=== PATIENT | female | born 1995 | race Caucasian/White ===

== ENCOUNTER 2023-03-25 | Outpatient (OUT) | payer OTHER, SELFPAY ==
[2023-03-25 01:33] LABS: Bilirubin Urine NEGATIVE (NEGATIVE); Blood Urine NEGATIVE (NEGATIVE); Clarity Urine CLEAR (CLEAR); Color Urine LT. YELLOW (YELLOW); Glucose Urine UA NEGATIVE (NEGATIVE); Ketones Urine NEGATIVE (NEGATIVE); Leukocyte Esterase Urine NEGATIVE (NEGATIVE); Nitrite Urine NEGATIVE (NEGATIVE); Protein Urine NEGATIVE (NEG/TRACE); Urobilinogen Urine 0.2 EU/dL (0.2-1.0)
[2023-03-25 01:36] LABS: Urine Microscopic Indicated NO
[2023-03-25 01:40] LABS: Amnisure NEGATIVE (NEGATIVE)
[2023-03-25 02:00] VITALS: PULSE 70; RESP 16; TEMP 35.8
[2023-03-25 02:23] VITALS: BP 117/62; PULSE 70; RESP 16; TEMP 35.8
== END 2023-03-25 02:30 | disposition home or self-care (01) ==
LOC: FBC 08:29 → FBCO 08:43 → FBC 09:59
PROVIDERS: PCP Nurse Practitioner Family; Visit Provider Obstetrics & Gynecology
DX: O26.899 Other specified pregnancy related conditions, unspecified trimester (principal)
CPT/HCPCS: 59025; 81003; 84112; G0378; G0379

== ENCOUNTER 2023-04-06 14:36 | Outpatient (REF) | payer OTHER, SELFPAY | END 2023-04-06 14:37 | disposition home or self-care (01) | LOC: LAB 14:36 | PROVIDERS: PCP Nurse Practitioner Family; Visit Provider Physician Assistant | DX: Z34.93 Encounter for supervision of normal pregnancy, unspecified, third trimester (principal) | CPT/HCPCS: 87081 ==

== ENCOUNTER 2023-04-19 16:03 | Emergency (ER) | payer OTHER, SELFPAY ==
[2023-04-19 16:09] VITALS: BP 121/77; PULSE 70; RESP 20; TEMP 36.8; O2SAT 99; BMI 30.6
[2023-04-19 16:32] LABS: Internal Control Within Normal Limits; Strep A Antigen Screen Negative
--- NOTE | 2023-04-19 16:56 | ECG_ITS ---
[facility] Test Date: 2023-04-19 Pat Name: ANASTACIA KU Department: Room: - Gender: Female [employer]: : 1995 Requested By: JAYSHREE LEIJA Order Number: [id number] Reading MD: DERICK WILKINS Measurements Intervals [place] Rate: 63 P: 60 ME: 150 QRS: 54 QRSD: 80 T: 26 QT: 394 QTc: 402 Interpretive Statements 1100 Sinus rhythm 9110 normal ECG No previous ECG available for comparison Electronically Signed On 04-20-2023 6:42:01 EDT by DERICK WILKINS
--- NOTE | 2023-04-19 16:59 | ED.GENADUL1 ---
Documented by User: Jackie Hagan 04/19/23 19:38 HPI - General Adult General Chief complaint: Shortness of Breath/Dyspnea Stated complaint: Difficulty breathing, High BP, 38-wks Time Seen by Provider: 04/19/23 16:56 Source: patient Mode of arrival: walk-in Limitations: no limitations History of Present Illness HPI narrative: 28 year old female presents to the ED for SOB, sore throat. Onset was yesterday. She feels as if she cannot take a deep breath. Denies fever, chills, congestion, cough. She is 38 weeks ; . Denies abd pain, vaginal discharge/bleeding. She is concerned she is dehydrated. Denies N/V/D, urinary sx. Denies pain. States her BP was 150/80 at work this morning. Reports feeling normal baby movement. Related Data Home Medications Medication Instructions Recorded Confirmed buprenorphine 8 mg-naloxone 2 mg 0.5 tab sublingual DAILY 03/25/23 03/25/23 sublingual tablet Previous Rx's Medication Instructions Recorded cephalexin 500 mg capsule 500 mg PO BID 5 days #10 caps 04/19/23 Allergies Allergy/AdvReac Type Severity Reaction Status Date / Time pcn Allergy Mild Rash Uncoded 03/25/23 03:51 Review of Systems ROS Constitutional Denies: fever or chills Eyes Denies: change in vision Ears, nose, mouth, and throat Reports: throat pain; Denies: neck pain Cardiovascular Denies: chest pain, palpitations, swelling of feet/ankles or lightheadedness Respiratory Reports: shortness of breath; Denies: cough, wheezing or stridor Gastrointestinal Denies: abdominal pain, nausea, vomiting or diarrhea Genitourinary Denies: painful urination Musculoskeletal Denies: back pain or neck pain Integumentary/Breast Denies: rash Neurological Denies: headache, numbness in extremities or weakness in extremities Allergic/Immunologic Denies: hives, throat swelling, tongue swelling or facial swelling PFSH PFS Surgical History (Updated 03/25/23 @ 03:42 by Amaya Cox) Social History Smoking status: Former smoker Exam Constitutional Vital Signs, click to edit/add: Last Vital Signs Temp 98.3 F 04/19/23 16:09 Pulse 70 04/19/23 16:09 Resp 20 04/19/23 16:09 BP 121/77 H 04/19/23 16:09 Pulse Ox 99 04/19/23 16:09 O2 Del Method Room Air 04/19/23 16:09 Common normals: no apparent distress and oriented x3 Exam limitations: no altered mental status General appearance: cooperative; not in distress HENNV Common normals: normocephalic Face and sinus: normal facial exam and face symmetric Nose: external nose normal External ear: external ears normal Mouth: oral and palatal mucosa normal, lip normal and tongue normal Throat: posterior oropharynx normal and uvula midline; no uvular edema Eye Common normals: PERRL and EOMs intact bilaterally Neck & C-Spine Common normals: supple Chest Chest: symmetrical chest wall rise Respiratory Common normals: normal respiratory effort Effort & inspection: able to speak in complete sentences Auscultation: clear to auscultation bilaterally Cardio Common normals: regular rate and regular rhythm Extremity Common normals: full ROM and normal capillary refill Neuro Common normals: oriented x3 Sensorium/orientation: awake and alert Speech: speech normal Course Vital Signs Vital signs: Vital Signs Temperature 98.3 F 04/19/23 16:09 Pulse Rate 70 04/19/23 16:09 Respiratory Rate 20 04/19/23 16:09 Blood Pressure 121/77 H 04/19/23 16:09 Pulse Oximetry 99 04/19/23 16:09 Oxygen Delivery Method Room Air 04/19/23 16:09 Temperature 98.3 F 04/19/23 16:09 Pulse Rate 70 04/19/23 16:09 Respiratory Rate 20 04/19/23 16:09 Blood Pressure 121/77 H 04/19/23 16:09 Pulse Oximetry 99 04/19/23 16:09 Oxygen Delivery Method Room Air 04/19/23 16:09 Medical Decision Making MDM Narrative Medical decision making narrative: CBC and CMP were unremarkable. Urinalysis showed signs of infection; culture is pending. Strep screen was ordered by the RN per protocol and was negative. A prescription was provided for Keflex. The patient is likely having issues with acid reflux which is causing her throat discomfort. Follow up with TELE[employer] P[employer] OPERATOR for a recheck, further evaluation and treatment. Return precautions were discussed. Lab Data Lab results reviewed: Yes I reviewed the patient's lab results Labs: Lab Results 07/19/23 07/19/23 07/19/23 Range/Units 16:18 17:11 18:10 WBC 13.2 H (4.0-11.0) 10^3/uL RBC 3.57 L (4.20-5.40) 10^6/uL Hgb 12.0 (12.0-16.0) g/dL Hct 33.7 L (36.0-48.0) % MCV 94.4 (81.0-99.0) fL MCH 33.6 (26.7-34.0) pg MCHC 35.6 H (29.9-35.2) g/dL RDW 13.2 (11.0-15.0) % Plt Count 221 (150-450) 10^3/uL MPV 9.7 (9.5-13.5) fL Neut % (Auto) 79.3 H (43.0-75.0) % Lymph % (Auto) 13.2 L (20.5-60.0) % [place] % (Auto) 5.9 (1.7-12.0) % Eos % (Auto) 1.0 (0.9-7.0) % Baso % (Auto) 0.2 (0.2-2.0) % Neut # (Auto) 10.4 H (1.4-6.5) 10^3/uL Lymph # (Auto) 1.7 (1.2-3.8) 10^3/uL [place] # (Auto) 0.8 (0.3-0.8) 10^3/uL Eos # (Auto) 0.1 (0.0-0.7) 10^3/uL Baso # (Auto) 0.0 (0.0-0.1) 10^3/uL Abs Immat Gran (auto) 0.05 H (0.00-0.03) 10^3/uL Imm/Tot Granulo (auto) 0.4 (0.0-0.5) % Sodium 137 (136-145) mmol/L Potassium 3.7 (3.5-5.1) mmol/L Chloride 105 (98-107) mmol/L Carbon Dioxide 22.4 (21.0-32.0) mmol/L Anion Gap 13.3 BUN 7.0 (7.0-18.0) mg/dL Creatinine 0.52 L (0.55-1.02) mg/dL Est GFR ( Amer) >60 (>=60) Est GFR (Non-Af Amer) >60 (>=60) BUN/Creatinine Ratio 13.5 Glucose 96 (74-106) mg/dL Calcium 8.6 (8.5-10.1) mg/dL Total Bilirubin 0.1 L (0.2-1.0) mg/dL AST 15 (15-37) U/L ALT 16 (14-59) U/L Alkaline Phosphatase 119 H (46-116) U/L Total Protein 6.5 (6.4-8.2) g/dL Albumin 2.8 L (3.4-5.0) g/dL Globulin 3.7 g/dL Albumin/Globulin Ratio 0.8 Urine Color Lt. yellow (YELLOW) Urine Clarity Clear (CLEAR) Urine pH 7.0 (5.0-9.0) Ur Specific [place] 1.015 (1.005-1.025) Urine Protein Negative (NEG/TRACE) mg/dL Urine Glucose (UA) Negative (NEGATIVE) mg/dL Urine Ketones Negative (NEGATIVE) mg/dL Urine Occult Blood Negative (NEGATIVE) Urine Nitrite Negative (NEGATIVE) Urine Bilirubin Negative (NEGATIVE) Urine Urobilinogen 0.2 (0.2-1.0) EU/dL Ur Leukocyte Esterase Large A (NEGATIVE) Urine RBC 2-5 A (0-2) #/HPF Urine WBC 10-20 A (NONE SEEN) #/HPF Ur Squamous Epith Cells Few A (NONE/RARE) #/LPF Urine Crystals Seen A (None Seen) #/HPF Amorphous Sediment Few Urine Bacteria Moderate A (NONE SEEN) #/HPF Urine Casts None seen (NONE SEEN) #/LPF Urine Mucus None seen (NONE SEEN) Ur Culture Indicated? Yes Streptococcus Screen Negative ECG Data Attestation: ?I have reviewed the pertinent ECG results. (EKG was reviewed by the attending physician. It showed sinus rhythm at a rate of 63. No acute ST segment changes. MD interval 150 ms. QTc 402 ms. ) Interpretation: Measurements Intervals? [place]? Rate: ? 63 ? P:? 60 MD: ? 150? QRS:? 54 QRSD: ? 80 ? T:? 26 QT: ? 394? QTc:? 402? Interpretive Statements 1100 Sinus rhythm 9110 ? normal ECG? No previous ECG available for comparison Discharge Plan Discharge Chief Complaint: Shortness of Breath/Dyspnea Clinical Impression: UTI (urinary tract infection), Dyspnea Patient Disposition: Home, Self-Care Time of Disposition Decision: 18:36 Condition: Good Mode of Transportation: Private Vehicle Prescriptions / Home Meds: New cephalexin 500 mg capsule 500 mg PO BID 5 Days Qty: 10 0RF No Action buprenorphine-naloxone 8-2 mg tablet, sublingual 0.5 tab SUBLINGUAL DAILY Instructions: Indigestion (ED), Dyspnea (ED), Urinary Tract Infection in (ED) Stand Alone Forms: Portal Instructions Referrals: JAYSHREE LEIJA [Primary Care Provider] - 1 week Discharge Date/Time: 04/19/23 19:07 Documented by User: Antonio Madrid MD 04/19/23 19:51 HPI - General Adult General Chief complaint: Shortness of Breath/Dyspnea Stated complaint: Difficulty breathing, High BP, 38-wks Time Seen by Provider: 04/19/23 16:56 Related Data Home Medications Medication Instructions Recorded Confirmed buprenorphine 8 mg-naloxone 2 mg 0.5 tab sublingual DAILY 03/25/23 03/25/23 sublingual tablet Previous Rx's Medication Instructions Recorded cephalexin 500 mg capsule 500 mg PO BID 5 days #10 caps 04/19/23 Allergies Allergy/AdvReac Type Severity Reaction Status Date / Time pcn Allergy Mild Rash Uncoded 03/25/23 03:51 PFSH [facility] Surgical History (Updated 03/25/23 @ 03:42 by Amaya Cox) Social History Smoking status: Former smoker Exam Constitutional Vital Signs, click to edit/add: Last Vital Signs Temp 98.3 F 04/19/23 16:09 Pulse 70 04/19/23 16:09 Resp 20 04/19/23 16:09 BP 121/77 H 04/19/23 16:09 Pulse Ox 99 04/19/23 16:09 O2 Del Method Room Air 04/19/23 16:09 Course Vital Signs Vital signs: Vital Signs Temperature 98.3 F 04/19/23 16:09 Pulse Rate 70 04/19/23 16:09 Respiratory Rate 20 04/19/23 16:09 Blood Pressure 121/77 H 04/19/23 16:09 Pulse Oximetry 99 04/19/23 16:09 Oxygen Delivery Method Room Air 04/19/23 16:09 Temperature 98.3 F 04/19/23 16:09 Pulse Rate 70 04/19/23 16:09 Respiratory Rate 20 04/19/23 16:09 Blood Pressure 121/77 H 04/19/23 16:09 Pulse Oximetry 99 04/19/23 16:09 Oxygen Delivery Method Room Air 04/19/23 16:09 Medical Decision Making MDM Narrative Medical decision making narrative: CBC and CMP were unremarkable. Urinalysis showed signs of infection; culture is pending. Strep screen was ordered by the RN per protocol and was negative. A prescription was provided for Keflex. The patient is likely having issues with acid reflux which is causing her throat discomfort. Follow up with [employer] P[employer] OPERATOR for a recheck, further evaluation and treatment. Return precautions were discussed. Patient is short of breath at rest and with exertion, there is no difference whether she is exerting herself or sitting down. Patient has not experienced this with her 1st 2 pregnancies. Patient has no extreme dyspnea on exertion. Discussion of possibility of pulmonary embolism was discussed at bedside. Patient does not want have a CTA of her chest this time. Because patient is equally short of breath at rest or with exertion, risk and benefits of performing a CTA were discussed at bedside of her chest. Does not appear to be extremely clinically warranted at this time. Patient would like to wait until she speaks her TE[employer] P[employer] OPERATOR tomorrow, Dr. Rosario in the office before any other additional testing is done. Patient will come back in dyspnea on exertion gets sooner if any worse. Patient also has signs and symptoms of acid reflux, patient was educated to use Maalox, Mylanta, or Pepcid which would be safe with . Patient feels better after discharge. No acute findings. Patient is evidence of white blood cells and bacteria in her urine. Patient be treated for urinary tract infection. Lab Data Labs: Lab Results 04/19/23 04/19/23 04/19/23 Range/Units 16:18 17:11 18:10 WBC 13.2 H (4.0-11.0) 10^3/uL RBC 3.57 L (4.20-5.40) 10^6/uL Hgb 12.0 (12.0-16.0) g/dL Hct 33.7 L (36.0-48.0) % MCV 94.4 (81.0-99.0) fL MCH 33.6 (26.7-34.0) pg MCHC 35.6 H (29.9-35.2) g/dL RDW 13.2 (11.0-15.0) % Plt Count 221 (150-450) 10^3/uL MPV 9.7 (9.5-13.5) fL Neut % (Auto) 79.3 H (43.0-75.0) % Lymph % (Auto) 13.2 L (20.5-60.0) % [place] % (Auto) 5.9 (1.7-12.0) % Eos % (Auto) 1.0 (0.9-7.0) % Baso % (Auto) 0.2 (0.2-2.0) % Neut # (Auto) 10.4 H (1.4-6.5) 10^3/uL Lymph # (Auto) 1.7 (1.2-3.8) 10^3/uL [place] # (Auto) 0.8 (0.3-0.8) 10^3/uL Eos # (Auto) 0.1 (0.0-0.7) 10^3/uL Baso # (Auto) 0.0 (0.0-0.1) 10^3/uL Abs Immat Gran (auto) 0.05 H (0.00-0.03) 10^3/uL Imm/Tot Granulo (auto) 0.4 (0.0-0.5) % Sodium 137 (136-145) mmol/L Potassium 3.7 (3.5-5.1) mmol/L Chloride 105 (98-107) mmol/L Carbon Dioxide 22.4 (21.0-32.0) mmol/L Anion Gap 13.3 BUN 7.0 (7.0-18.0) mg/dL Creatinine 0.52 L (0.55-1.02) mg/dL Est GFR ( Amer) >60 (>=60) Est GFR (Non-Af Amer) >60 (>=60) BUN/Creatinine Ratio 13.5 Glucose 96 (74-106) mg/dL Calcium 8.6 (8.5-10.1) mg/dL Total Bilirubin 0.1 L (0.2-1.0) mg/dL AST 15 (15-37) U/L ALT 16 (14-59) U/L Alkaline Phosphatase 119 H (46-116) U/L Total Protein 6.5 (6.4-8.2) g/dL Albumin 2.8 L (3.4-5.0) g/dL Globulin 3.7 g/dL Albumin/Globulin Ratio 0.8 Urine Color Lt. yellow (YELLOW) Urine Clarity Clear (CLEAR) Urine pH 7.0 (5.0-9.0) Ur Specific [place] 1.015 (1.005-1.025) Urine Protein Negative (NEG/TRACE) mg/dL Urine Glucose (UA) Negative (NEGATIVE) mg/dL Urine Ketones Negative (NEGATIVE) mg/dL Urine Occult Blood Negative (NEGATIVE) Urine Nitrite Negative (NEGATIVE) Urine Bilirubin Negative (NEGATIVE) Urine Urobilinogen 0.2 (0.2-1.0) EU/dL Ur Leukocyte Esterase Large A (NEGATIVE) Urine RBC 2-5 A (0-2) #/HPF Urine WBC 10-20 A (NONE SEEN) #/HPF Ur Squamous Epith Cells Few A (NONE/RARE) #/LPF Urine Crystals Seen A (None Seen) #/HPF Amorphous Sediment Few Urine Bacteria Moderate A (NONE SEEN) #/HPF Urine Casts None seen (NONE SEEN) #/LPF Urine Mucus None seen (NONE SEEN) Ur Culture Indicated? Yes Streptococcus Screen Negative Discharge Plan Discharge Chief Complaint: Shortness of Breath/Dyspnea Clinical Impression: UTI (urinary tract infection), Dyspnea Patient Disposition: Home, Self-Care Time of Disposition Decision: 18:36 Condition: Good Mode of Transportation: Private Vehicle Prescriptions / Home Meds: New cephalexin 500 mg capsule 500 mg PO BID 5 Days Qty: 10 0RF No Action buprenorphine-naloxone 8-2 mg tablet, sublingual 0.5 tab SUBLINGUAL DAILY Instructions: Indigestion (ED), Dyspnea (ED), Urinary Tract Infection in (ED) Stand Alone Forms: Portal Instructions Referrals: JAYSHREE LEIJA [Primary Care Provider] - 1 week Discharge Date/Time: 04/19/23 19:07
[2023-04-19] MEDS: 0.9 % SODIUM CHLORIDE 1,000 ML 1000 ML IV (17:08)
[2023-04-19 17:16] VITALS: PULSE 65
[2023-04-19 17:20] LABS: Basophils Percent Auto 0.2 % (0.2-2.0); Eosinophils Absolute Auto 0.1 10^3/uL (0.0-0.7); Hematocrit 33.7 % (36.0-48.0); Immature Granulocytes Abs Auto 0.05 10^3/uL (0.00-0.03); Immature Granulocytes Pct Auto 0.4 % (0.0-0.5); Lymphocytes Absolute Auto 1.7 10^3/uL (1.2-3.8); Lymphocytes Percent Auto 13.2 % (20.5-60.0); Mean Corpuscular HGB Conc 35.6 g/dL (29.9-35.2); Mean Corpuscular Hemoglobin 33.6 pg (26.7-34.0); Mean Corpuscular Volume 94.4 fL (81.0-99.0); Mean Platelet Volume 9.7 fL (9.5-13.5); Monocytes Absolute Auto 0.8 10^3/uL (0.3-0.8); Monocytes Percent Auto 5.9 % (1.7-12.0); Neutrophils Absolute Auto 10.4 10^3/uL (1.4-6.5); Neutrophils Percent Auto 79.3 % (43.0-75.0); Platelet Count 221 10^3/uL (150-450); Red Blood Count 3.57 10^6/uL (4.20-5.40); Red Cell Distribution Width 13.2 % (11.0-15.0); White Blood Count 13.2 10^3/uL (4.0-11.0)
[2023-04-19 17:33] LABS: Alanine Aminotransferase 16 U/L (14-59); Albumin Globulin Ratio 0.8; Albumin Level 2.8 g/dL (3.4-5.0); Alkaline Phosphatase 119 U/L (46-116); Anion Gap 13.3; Aspartate Amino Transferase 15 U/L (15-37); BUN Creatinine Ratio 13.5; Bilirubin Total 0.1 mg/dL (0.2-1.0); Calcium 8.6 mg/dL (8.5-10.1); Carbon Dioxide 22.4 mmol/L (21.0-32.0); Chloride 105 mmol/L (98-107); Estimated GFR (African America >60 (>=60); Estimated GFR (Non-African Ame >60 (>=60); Globulin 3.7 g/dL; Glucose 96 mg/dL (74-106); Potassium 3.7 mmol/L (3.5-5.1); Sodium 137 mmol/L (136-145); Total Protein 6.5 g/dL (6.4-8.2)
[2023-04-19 18:21] LABS: Bilirubin Urine NEGATIVE (NEGATIVE); Blood Urine NEGATIVE (NEGATIVE); Clarity Urine CLEAR (CLEAR); Color Urine LT. YELLOW (YELLOW); Glucose Urine UA NEGATIVE (NEGATIVE); Ketones Urine NEGATIVE (NEGATIVE); Leukocyte Esterase Urine LARGE (NEGATIVE); Nitrite Urine NEGATIVE (NEGATIVE); Protein Urine NEGATIVE (NEG/TRACE); Specific Gravity Urine 1.015 (1.005-1.025); Urine Microscopic Indicated YES; Urobilinogen Urine 0.2 EU/dL (0.2-1.0)
[2023-04-19 18:43] LABS: Amorphous Sediment Urine FEW; Bacteria Urine MODERATE #/HPF (NONE SEEN); Cast Seen? NONE SEEN #/LPF (NONE SEEN); Crystals Seen? Seen #/HPF (None Seen); Mucus Urine NONE SEEN (NONE SEEN); Squamous Epithelial Cell Urine FEW #/LPF (NONE/RARE); Urine Culture Indicated YES
== END 2023-04-19 19:07 | disposition home or self-care (01) ==
PROVIDERS: Nurse Practitioner Family; Emergency Provider Emergency Medicine; PCP Nurse Practitioner Family
DX: O23.43 Unspecified infection of urinary tract in pregnancy, third trimester (principal); N39.0 Urinary tract infection, site not specified; O26.893 Other specified pregnancy related conditions, third trimester; R06.00 Dyspnea, unspecified; Z3A.38 38 weeks gestation of pregnancy; Z79.899 Other long term (current) drug therapy; Z87.891 Personal history of nicotine dependence
CPT/HCPCS: 36415; 80053; 81003; 81015; 85025; 87070; 87086; 87880; 93005; 99284

== ENCOUNTER 2023-04-21 07:28 | Inpatient (IN) | payer OTHER, SELFPAY ==
[2023-04-21] VITALS (29 sets, daily range): BP systolic 102–141; BP diastolic 53–78; PULSE 58–75; RESP 16; TEMP 36.4
[2023-04-21 08:30] LABS: Hematocrit 35.5 % (36.0-48.0); Hemoglobin 12.4 g/dL (12.0-16.0); Mean Corpuscular HGB Conc 34.9 g/dL (29.9-35.2); Mean Corpuscular Hemoglobin 32.8 pg (26.7-34.0); Mean Corpuscular Volume 93.9 fL (81.0-99.0); Platelet Count 233 10^3/uL (150-450); Red Blood Count 3.78 10^6/uL (4.20-5.40); Red Cell Distribution Width 13.1 % (11.0-15.0)
[2023-04-21] MEDS: OXYTOCIN 10 UNIT in 0.9 % SODIUM CHLORIDE 500 ML 6.012 UNIT IV (08:32)
[2023-04-21] MEDS: 0.9 % SODIUM CHLORIDE 1,000 ML 1000 ML IV ×2 (08:36→11:34)
[2023-04-21 08:51] LABS: Amphetamine Screen Urine NEGATIVE (NEGATIVE); Barbiturates Screen Urine NEGATIVE (NEGATIVE); Benzodiazepines Screen Urine NEGATIVE (NEGATIVE); Buprenorphine Screen Urine POSITIVE (NEGATIVE); Cannabinoid Screen Urine NEGATIVE (NEGATIVE); Cocaine Screen Urine NEGATIVE (NEGATIVE); Methadone Screen Urine NEGATIVE (NEGATIVE); Methamphetamines Screen Urine NEGATIVE (NEGATIVE); Opiate Screen Urine NEGATIVE (NEGATIVE); Oxycodone Screen Urine NEGATIVE (NEGATIVE); Phencyclidine Screen Urine NEGATIVE (NEGATIVE); Tricyclic Antidepressant Urine NEGATIVE (NEGATIVE)
--- NOTE | 2023-04-21 14:30 | PM.OBPRCVD ---
Procedure events: Labor Induction Intrapartal events: None Induction method: per pitocin protocol Delivery augmentation: rupture of membranes and pitocin Delivery monitor: external FHT and external uterine Route of delivery: Laceration description: perineal - 1st degree Delivery repair: Vicryl Estimated blood loss (mL): 250 Anesthesia type: Epidural Disposition: floor Infant presentation: vertex Placental delivery description: Spontaneous cord description: 3 Vessels
[2023-04-21] MEDS: LIDOCAINE HCL 2% PF 100 MG/5 ML VIAL INJ (15:18)
[2023-04-21] MEDS: IBUPROFEN 600 MG TABLET PO ×2 (17:23→23:21)
--- NOTE | 2023-04-21 19:06 | W.PC.ACHO ---
Registration Status: ADM IN Primary Language: Taiwanese Preferred Language: Taiwanese Active Medications Generic Name Dose Route Start Last Admin Trade Name Freq PRN Reason Stop Dose Admin Acetaminophen 650 mg 04/21/23 14:02 Acetaminophen 325 Mg Tablet PO Q6H PRN Mild Pain Acetaminophen/Codeine Phosphate 1 each 04/21/23 14:02 Acetaminophen 300 Mg With Codeine 30 Mg Tablet PO Q4H PRN Moderate Pain Al Hydroxide/Mg Hydroxide 2,400 mg 04/21/23 14:02 Magnesium Hydroxide 2,400 Mg/10 Ml Oral.Susp PO Q6H PRN Dyspepsia Benzocaine/Menthol 1 applic 04/21/23 14:02 04/21/23 17:23 Benzocaine/Menthol 85 Gram Bottle TOPICAL 1 applic ONCE PRN Administration Pain Buprenorphine HCl 1 mg 04/21/23 21:00 Buprenorphine Hcl 2 Mg Tab Subl SL BID WILL Carboprost Tromethamine 250 mcg 04/21/23 08:06 Carboprost Tromethamine 250 Mcg/Ml 1 Ml Vial IM Q15M PRN Bleeding Diphenhydramine HCl 25 mg 04/21/23 10:20 Diphenhydramine Hcl 50 Mg/Ml (1ml) Vial IV Q6H PRN Itching Docusate Sodium 100 mg 04/22/23 09:00 Docusate Sodium 100 Mg Capsule PO BID WILL Ephedrine Sulfate 5 mg 04/21/23 10:20 Ephedrine Sulfate 50 Mg/Ml Vial IV Q5M PRN Blood Pressure - Low Fentanyl Citrate 100 mcg 04/21/23 10:20 Fentanyl Citrate/Pf 100 Mcg/2 Ml Vial EPIDURAL Q4H PRN Pain Sodium Chloride 1,000 mls @ 125 mls/hr 04/21/23 08:15 Sodium Chloride 0.9% 1,000 Ml IV .Q8H [facility] Oxytocin 10 unit/ Sodium 501 mls @ 6.012 mls/hr 04/21/23 08:15 04/21/23 08:32 Chloride IV 2 milliunit/min Q24H WILL 6.012 mls/hr Administration 2 MILLIUNIT/MIN Oxytocin 10 unit/ Sodium 501 mls @ 6.012 mls/hr 04/21/23 08:30 Chloride IV Q24H [facility] Protocol 2 MILLIUNIT/MIN Oxytocin 20 unit/ Sodium 1,002 mls @ 125 mls/hr 04/21/23 14:15 04/21/23 15:17 Chloride IV 04/21/23 22:14 20 mls/hr Q8H WILL 20 mls/hr Administration Ibuprofen 600 mg 04/21/23 14:02 04/21/23 17:23 Ibuprofen 600 Mg Tablet PO 600 mg Q6H PRN Administration Moderate Pain Lidocaine 5 ml 04/21/23 08:06 Lidocaine Viscous 2% 15 Ml Topical Solution TOPICAL ONCE PRN Pain Lidocaine 1 ml 04/21/23 08:06 Lidocaine Hcl 1% 200 Mg/20 Ml Mdv INJ ONCE PRN Pain Lidocaine 5 ml 04/21/23 10:20 04/21/23 15:18 Lidocaine Hcl 2% Pf 100 Mg/5 Ml Vial INJ 5 ml Q1H PRN Administration Pain Scale 7-10 Methylergonovine Maleate 0.2 mg 04/21/23 08:06 Methylergonovine Maleate 0.2 Mg Tablet PO Q4H PRN Uterine Contractility/Contract Methylergonovine Maleate 0.2 mg 04/21/23 08:06 Methylergonovine Maleate 0.2 Mg/Ml Ampule IM ONCE PRN Uterine Contractility/Contract Misoprostol 600 mcg 04/21/23 08:06 Misoprostol 100 Mcg Tablet PO ONCE PRN Uterine Bleeding Misoprostol 800 mcg 04/21/23 08:06 Misoprostol 100 Mcg Tablet SL ONCE PRN Uterine Bleeding Misoprostol 1,000 mcg 04/21/23 08:06 Misoprostol 100 Mcg Tablet FL ONCE PRN Uterine Bleeding Naloxone HCl 0.4 mg 04/21/23 10:20 Naloxone Hcl 0.4 Mg/Ml Vial IV ONCE PRN epidural Ondansetron HCl 4 mg 04/21/23 08:06 Ondansetron Pf 4 Mg/2 Ml Vial IV Q6H PRN Nausea And Vomiting Ondansetron HCl 4 mg 04/21/23 08:06 Ondansetron 4 Mg Rapdis Tablet SL Q6H PRN Nausea And Vomiting Oxytocin 10 unit 04/21/23 08:06 Oxytocin 100 Unit/10 Ml Vial IM ONCE PRN Uterine Bleeding Rho Immune Globulin 1,500 unit 04/22/23 10:00 Rho(D) Immune Globulin 1,500 Unit Syringe IV 04/22/23 10:01 ONCE ONE Senna 17.2 mg 04/21/23 20:00 Sennosides 8.6 Mg Tablet PO QHS PRN Constipation Simethicone 80 mg 04/21/23 14:02 Simethicone 80 Mg Tab.Chew PO QID PRN Abdominal Distention Temazepam 15 mg 04/21/23 20:00 Temazepam 15 Mg Capsule PO BEDTIME PRN Sleep [place]/Glycerin 1 each 04/21/23 14:02 Glycerin/[place] 1 Each Jar TOPICAL . NEEDED PRN Pain Diet Category Date Time Status Regular Consistency Diet Diet 04/21/23 Lunch Active Consults Category Date Time Status Consult to Anesthesiology Routine Cons 04/21/23 Ordered Consult to Histologist Technologist Routine Cons 04/21/23 Ordered IV Insertion/Site Date of IV Line Insertion [20g 04/21/23 right Wrist] IV Insertion Time [20g right 08:00 Wrist] Neurology Patient orientation (short person,place,time,situation list) Respiratory Lung sounds [Throughout] clear Lung sounds [Throughout] clear Lung sounds [Throughout] clear
[2023-04-21] MEDS: BUPRENORPHINE HCL 2 MG TAB SUBL 1 MG SL (20:28)
[2023-04-22 06:18] LABS: Basophils Percent Auto 0.3 % (0.2-2.0); Eosinophils Absolute Auto 0.1 10^3/uL (0.0-0.7); Eosinophils Percent Auto 1.3 % (0.9-7.0); Hematocrit 32.6 % (36.0-48.0); Hemoglobin 11.4 g/dL (12.0-16.0); Immature Granulocytes Abs Auto 0.03 10^3/uL (0.00-0.03); Immature Granulocytes Pct Auto 0.3 % (0.0-0.5); Lymphocytes Percent Auto 18.3 % (20.5-60.0); Mean Corpuscular Hemoglobin 33.4 pg (26.7-34.0); Mean Corpuscular Volume 95.6 fL (81.0-99.0); Mean Platelet Volume 9.7 fL (9.5-13.5); Monocytes Absolute Auto 0.8 10^3/uL (0.3-0.8); Monocytes Percent Auto 7.4 % (1.7-12.0); Neutrophils Percent Auto 72.4 % (43.0-75.0); Platelet Count 190 10^3/uL (150-450); Red Blood Count 3.41 10^6/uL (4.20-5.40); Red Cell Distribution Width 13.4 % (11.0-15.0)
--- NOTE | 2023-04-22 07:26 | W.PC.ACHO ---
Registration Status: ADM IN Primary Language: [place] Preferred Language: [place] Active Medications reported off to Dione MURPHY Generic Name Dose Route Start Last Admin Trade Name Rui PRN Reason Stop Dose Admin Acetaminophen 650 mg 04/21/23 14:02 Acetaminophen 325 Mg Tablet PO Q6H PRN Mild Pain Acetaminophen/Codeine Phosphate 1 each 04/21/23 14:02 Acetaminophen 300 Mg With Codeine 30 Mg Tablet PO Q4H PRN Moderate Pain Al Hydroxide/Mg Hydroxide 2,400 mg 04/21/23 14:02 Magnesium Hydroxide 2,400 Mg/10 Ml Oral.Susp PO Q6H PRN Dyspepsia Benzocaine/Menthol 1 applic 04/21/23 14:02 04/21/23 17:23 Benzocaine/Menthol 85 Gram Bottle TOPICAL 1 applic ONCE PRN Administration Pain Buprenorphine HCl 1 mg 04/21/23 21:00 04/21/23 20:28 Buprenorphine Hcl 2 Mg Tab Subl SL 1 mg BID WILL Administration Carboprost Tromethamine 250 mcg 04/21/23 08:06 Carboprost Tromethamine 250 Mcg/Ml 1 Ml Vial IM Q15M PRN Bleeding Diphenhydramine HCl 25 mg 04/21/23 10:20 Diphenhydramine Hcl 50 Mg/Ml (1ml) Vial IV Q6H PRN Itching Docusate Sodium 100 mg 04/22/23 09:00 Docusate Sodium 100 Mg Capsule PO BID WILL Ephedrine Sulfate 5 mg 04/21/23 10:20 Ephedrine Sulfate 50 Mg/Ml Vial IV Q5M PRN Blood Pressure - Low Fentanyl Citrate 100 mcg 04/21/23 10:20 Fentanyl Citrate/Pf 100 Mcg/2 Ml Vial EPIDURAL Q4H PRN Pain Sodium Chloride 1,000 mls @ 125 mls/hr 04/21/23 08:15 Sodium Chloride 0.9% 1,000 Ml IV .Q8H WILL Oxytocin 10 unit/ Sodium 501 mls @ 6.012 mls/hr 04/21/23 08:15 04/21/23 08:32 Chloride IV 2 milliunit/min Q24H WILL 6.012 mls/hr Administration 2 MILLIUNIT/MIN Oxytocin 10 unit/ Sodium 501 mls @ 6.012 mls/hr 04/21/23 08:30 Chloride IV Q24H [facility] Protocol 2 MILLIUNIT/MIN Ibuprofen 600 mg 04/21/23 14:02 04/21/23 23:21 Ibuprofen 600 Mg Tablet PO 600 mg Q6H PRN Administration Moderate Pain Lidocaine 5 ml 04/21/23 08:06 Lidocaine Viscous 2% 15 Ml Topical Solution TOPICAL ONCE PRN Pain Lidocaine 1 ml 04/21/23 08:06 Lidocaine Hcl 1% 200 Mg/20 Ml Mdv INJ ONCE PRN Pain Lidocaine 5 ml 04/21/23 10:20 04/21/23 15:18 Lidocaine Hcl 2% Pf 100 Mg/5 Ml Vial INJ 5 ml Q1H PRN Administration Pain Scale 7-10 Methylergonovine Maleate 0.2 mg 04/21/23 08:06 Methylergonovine Maleate 0.2 Mg Tablet PO Q4H PRN Uterine Contractility/Contract Methylergonovine Maleate 0.2 mg 04/21/23 08:06 Methylergonovine Maleate 0.2 Mg/Ml Ampule IM ONCE PRN Uterine Contractility/Contract Misoprostol 600 mcg 04/21/23 08:06 Misoprostol 100 Mcg Tablet PO ONCE PRN Uterine Bleeding Misoprostol 800 mcg 04/21/23 08:06 Misoprostol 100 Mcg Tablet SL ONCE PRN Uterine Bleeding Misoprostol 1,000 mcg 04/21/23 08:06 Misoprostol 100 Mcg Tablet SC ONCE PRN Uterine Bleeding Naloxone HCl 0.4 mg 04/21/23 10:20 Naloxone Hcl 0.4 Mg/Ml Vial IV ONCE PRN epidural Ondansetron HCl 4 mg 04/21/23 08:06 Ondansetron Pf 4 Mg/2 Ml Vial IV Q6H PRN Nausea And Vomiting Ondansetron HCl 4 mg 04/21/23 08:06 Ondansetron 4 Mg Rapdis Tablet SL Q6H PRN Nausea And Vomiting Oxytocin 10 unit 04/21/23 08:06 Oxytocin 100 Unit/10 Ml Vial IM ONCE PRN Uterine Bleeding Rho Immune Globulin 1,500 unit 04/22/23 10:00 Rho(D) Immune Globulin 1,500 Unit Syringe IV 04/22/23 10:01 ONCE ONE Senna 17.2 mg 04/21/23 20:00 Sennosides 8.6 Mg Tablet PO QHS PRN Constipation Simethicone 80 mg 04/21/23 14:02 Simethicone 80 Mg Tab.Chew PO QID PRN Abdominal Distention Temazepam 15 mg 04/21/23 20:00 Temazepam 15 Mg Capsule PO BEDTIME PRN Sleep [place]/Glycerin 1 each 04/21/23 14:02 Glycerin/[place] 1 Each Jar TOPICAL . NEEDED PRN Pain Diet Category Date Time Status Regular Consistency Diet Diet 04/21/23 Lunch Active IV Insertion/Site Date of IV Line Insertion [20g 04/21/23 right Wrist] IV Insertion Time [20g right 08:00 Wrist] Neurology Patient orientation (short person,place,time,situation list) Respiratory Lung sounds [Throughout] clear Lung sounds [Throughout] clear Lung sounds [Throughout] clear Oxygen Delivery Method Room Air Oxygen Delivery Method Room Air
[2023-04-22 07:43] VITALS: BP 113/68; PULSE 61
[2023-04-22] MEDS: DOCUSATE SODIUM 100 MG CAPSULE PO (09:03)
[2023-04-22] MEDS: RHO(D) IMMUNE GLOBULIN 1,500 UNIT SYRINGE 1500 UNIT IV (09:03)
[2023-04-22] MEDS: BUPRENORPHINE HCL 2 MG TAB SUBL 1 MG SL (09:05)
--- NOTE | 2023-04-22 10:04 | PM.OBPN ---
OB - PN: Subj Subjective Patient comments: no complaints [place] status: doing well Exam Narrative Exam Narrative: patient is 1 day post , s/p Constitutional Vital Signs, click to edit/add: Last Vital Signs Temp 97.5 F L 04/21/23 23:30 Pulse 61 04/22/23 07:43 Resp 16 04/21/23 23:30 BP 113/68 04/22/23 07:43 O2 Del Method Room Air 04/21/23 23:30 Documenting provider has reviewed patient's vital signs: yes Common normals: no apparent distress General appearance: cooperative and comfortable HENMT Common normals: normocephalic Chest Common normals: inspection of chest normal Respiratory Common normals: normal respiratory effort Cardio Common normals: regular rate and regular rhythm Rate: regular rate Rhythm: regular rhythm GI Common normals: Normal to inspection, nondistended, normoactive bowel sounds present Palpation: soft and firm Common normals: no CVA tenderness Uterus palpation: other (FF U/-1) Neuro Common normals: oriented x3 Sensorium/orientation: awake, alert, oriented to person, oriented to place and oriented to time Psych Attitude: calm Results Labs Labs: Short CBC 04/22/23 Range/Units 06:05 WBC 11.0 (4.0-11.0) 10^3/uL Hgb 11.4 L (12.0-16.0) g/dL Hct 32.6 L (36.0-48.0) % Plt Count 190 (150-450) 10^3/uL OB - PN: A/P Plan - Vaginal Delivery day: 1 Plan: discharge home and follow up 6 weeks Time Spent with Patient Time: Total time spent is greater than 50% in coordination of care (as documented) at patient's floor/unit and/or counseling patient: Total time spent with greater than 50% in coordination of care (as documented) at patient's floor/unit and/or counseling patient: less than 15 minutes
[2023-04-22] MEDS: IBUPROFEN 600 MG TABLET PO (10:57)
[2023-04-22 16:35] VITALS: BP 130/62; PULSE 54; RESP 16; TEMP 36.6
[2023-04-22 19:56] VITALS: BP 113/68; PULSE 61; RESP 16; TEMP 37
--- NOTE | 2023-04-24 15:08 | SWNOTE1 ---
SW consulted due to positive drug screen. Pt was discharged on 04/23/23, but baby has 5 day stay. Pt was in room with baby and so was father of baby and one of her other children. Pt is doing well and so is baby. They do have everything they need at home for baby. Bottle feeding. There are 2 other children in the home, they are 9&6. Pt and father of baby voiced they do have a good support system at home and live in the home together. SW did address pt's drug screen being positive for Buprenorphine. Pt does go to see Dr. Kendrick in [place] and is prescribed 2 mg daily. Pt is working on transitioning off of Subutex. She has been going to Dr. Kendrick since 2019. She had a past history of opiate abuse. Pt does have zoom counseling meetings with [facility] in [place] and they are monthly. Pt's baby is scoring low right now and they are bonding appropriately. SW did let pt and father of baby SW is mandated news reporter and a report will be made to [facility] CPS. They voiced understanding and had no questions at this time. Report made, HIPPA form filled out and sent to
== END 2023-04-22 16:40 | disposition home or self-care (01) | DRG 560 ==
PROVIDERS: Admitting Provider Obstetrics & Gynecology; PCP Nurse Practitioner Family; Visit Provider Obstetrics & Gynecology
DX: O70.0 First degree perineal laceration during delivery (principal); Z3A.39 39 weeks gestation of pregnancy; Z37.0 Single live birth; Z88.0 Allergy status to penicillin
CPT/HCPCS: 36415; 51701; 59050; 59410; 80053; 80307; 81003; 81015; 85025; 85027; 85461; 86850; 86900; 86901; 87070; 87086; 87880; 93005; 96372; 96374; 96376; 99284; J2790

== ENCOUNTER 2023-05-31 20:23 | Outpatient (REF) | payer OTHER, SELFPAY | END 2023-05-31 20:24 | disposition home or self-care (01) | LOC: LAB 20:23 | PROVIDERS: PCP Nurse Practitioner Family; Visit Provider Physician Assistant | DX: R30.0 Dysuria (principal) | CPT/HCPCS: 87086; 87150; 87186 ==

== ENCOUNTER 2024-01-03 19:24 | Outpatient (REF) | payer OTHER, SELFPAY ==
[2024-01-09 14:09] LABS: Age Gdln ACOG Testing Note (.); IGP, rfx Aptima HPV ASCU Note (.)
== END 2024-01-03 19:25 | disposition home or self-care (01) ==
LOC: LAB 19:24
PROVIDERS: PCP Nurse Practitioner Family; Visit Provider Obstetrics & Gynecology
DX: Z01.419 Encounter for gynecological examination (general) (routine) without abnormal findings (principal)
CPT/HCPCS: G0145

== ENCOUNTER 2024-06-26 13:05 | Outpatient (OUT) | payer OTHER, SELFPAY ==
--- NOTE | 2024-06-26 13:05 | US_ITS ---
[address] [address] Patient Name: ANASTACIA KU MRN: [id number] date: 1995 Sex: F Assigned Patient Location: [facility] Current Patient Location: Accession/Order Number: [id number] Exam Date: 06/26/2024 13:05 Report Date: 06/27/2024 04:18 At the request of: JAMIL DANIELS Procedure: US pelvis w/ transvaginal EXAMINATION: US pelvis w/ transvaginal HISTORY: MENORRHAGIA COMPARISON: No relevant comparison available. TECHNIQUE: Transabdominal and/or transvaginal sonographic examination was performed as indicated by examination type. FINDINGS: UTERUS: Normal size and appearance. Uterus size: 8.9 x 2.9 x 5.4 cm ENDOMETRIUM: Normal homogeneous appearance. Endometrial thickness: 2 mm RIGHT OVARY: Normal size and appearance. Duplex Doppler demonstrates normal waveform and flow; resistive index 0.5. Ovary size: 3.3 x 1.3 x 2.1 cm LEFT OVARY: Contains a benign-appearing cyst versus dominant follicle, 2.1 cm. Duplex Doppler demonstrates normal waveform and flow; resistive index 0.5. Ovary size: 3.4 x 2.2 x 2.8 cm CUL-DE-SAC: Unremarkable. No significant free fluid. BLADDER: Unremarkable. OTHER: None. US/US pelvis w/ transvaginal IMPRESSION: 1. The left ovary contains a 2.1 cm benign-appearing cyst. Otherwise unremarkable pelvic ultrasound. Electronically authenticated by: LIAM BOYKIN Date: 06/27/2024 04:18
== END 2024-06-26 13:06 | disposition home or self-care (01) ==
LOC: NOMS 13:05
PROVIDERS: PCP Nurse Practitioner Family; Visit Provider Obstetrics & Gynecology
DX: R10.2 Pelvic and perineal pain (principal); N92.0 Excessive and frequent menstruation with regular cycle; N92.6 Irregular menstruation, unspecified; N83.292 Other ovarian cyst, left side
CPT/HCPCS: 76830; 76856

== ENCOUNTER 2024-07-11 10:19 | Outpatient (OUT) | payer OTHER, SELFPAY ==
[2024-07-11 10:38] LABS: Basophils Percent Auto 0.6 % (0.2-2.0); Eosinophils Absolute Auto 0.1 10^3/uL (0.0-0.7); Eosinophils Percent Auto 1.7 % (0.9-7.0); Hematocrit 42.1 % (36.0-48.0); Hemoglobin 14.3 g/dL (12.0-16.0); Lymphocytes Absolute Auto 1.7 10^3/uL (1.2-3.8); Lymphocytes Percent Auto 27.1 % (20.5-60.0); Mean Corpuscular Hemoglobin 31.8 pg (26.7-34.0); Mean Corpuscular Volume 93.6 fL (81.0-99.0); Mean Platelet Volume 9.8 fL (9.5-13.5); Monocytes Absolute Auto 0.5 10^3/uL (0.3-0.8); Monocytes Percent Auto 8.1 % (1.7-12.0); Neutrophils Absolute Auto 3.9 10^3/uL (1.4-6.5); Neutrophils Percent Auto 62.5 % (43.0-75.0); Platelet Count 210 10^3/uL (150-450); Red Cell Distribution Width 12.5 % (11.0-15.0); White Blood Count 6.3 10^3/uL (4.0-11.0)
--- OUTSIDE RECORDS SUMMARY | 2024-07-11 10:42 | XMS_ITS | CCD ---
Author Organization [facility] Care Team Providers Care Interior Decorator Name Role Phone JEREMIAH ., DR NEGRON Attending Unavailable LISS, JAYSHREE Primary Care Unavailable REQUEST, DR NONE LISTED Consulting Unavaila ble JEREMIAH ., DR NEGRON Admitting Unavailable JEREMIAH ., DR NEGRON Attending Unavailable REQUEST, DR NONE LISTED Primary Care Unavaila ble JEREMIAH ., DR NEGRON Admitting Unavailable JEREMIAH ., DR NEGRON Consulting Unavailable ANGELICA ., VAISHNAVI Attending Unavailable ANGELICA ., VAISHNAVI Admitting Unavailable ZIEBER, DR LIAM Tobias Consulting Unavailable LISS, JAYSHREE Primary Care Unavailable ANGELICA ., VAISHNAVI Consulting Unavailable JEREMIAH ., DR NEGRON Attending Unavailable JEREMIAH ., DR NEGRON Admitting Unavailable LISS, JAYSHREE Primary Care Unavailable JEREMIAH ., DR NEGRON Consulting Unavailable JEREMIAH ., DR NEGRON Attending Unavailable JEREMIAH ., DR NEGRON Admitting Unavailable JEREMIAH ., DR NEGRON Consulting Unavailable LISS, JAYSHREE Primary Care Unavailable JEREMIAH ., DR NEGRON Attending Unavailable LISS, JAYSHREE Primary Care Unavailable JEREMIAH ., DR NEGRON Admitting Unavailable FARMINGTON, DR MICHELLE Orellana Consulting Unavailable JEREMIAH ., DR NEGRON Consulting Unavailable JEREMIAH ., DR NEGRON Attending Unavailable LISS, JAYSHREE Primary Care Unavailable JEREMIAH ., DR NEGRON Admitting Unavailable JEREMIAH ., DR NEGRON Consulting Unavailable LISS, JAYSHREE Primary Care Unavailable JEREMIAH ., DR NEGRON Consulting Unavailable JEREMIAH ., DR NEGRON Attending Unavailable JEREMIAH ., DR NEGRON Admitting Unavailable JEREMIAH ., DR NEGRON Attending Unavailable JEREMIAH ., DR NEGRON Admitting Unavailable LISS, JAYSHREE Primary Care Unavailable JEREMIAH ., DR NEGRON Consulting Unavailable JEREMIAH ., DR NEGRON Attending Unavailable JEREMIAH ., DR NEGRON Admitting Unavailable LISS, JAYSHREE Primary Care Unavailable JEREMIAH ., DR NEGRON Consulting Unavailable LUCRETIA, DR LIAM Tobias Consulting Unavailable JAYSHREE LEIJA Primary Care Unavailable RAMU HARVEY Attending Unavailable RAMU HARVEY Admitting Unavailable RAMU HARVEY Consulting Unavailable JEREMIAH ., DR NEGRON Attending Unavailable JEREMIAH ., DR NEGRON Admitting Unavailable REQUEST, DR SEA LISTED Primary Care Unavaila ble JEREMIAH ., DR NEGRON Consulting Unavailable JAMIL DANIELS Attending Unavailable JEREMIAHJAMIL Attending Unavailable JEREMIAH, JAMIL Attending Unavailable Allergies Allergy Classification Reported Allergen(s) Allergy Type Date of Onset Reaction(s) Facility (1 source) Morphine Drug Allergy 11-06-2017 [facility] (1 source) Penicillins Drug allergy (disorder) 1994 [facility] Problems Active Problems Problem Classification Problem Date Documented Da te Episodic/Chronic Abdominal pain (1 source) Unspecified abdominal pain; Translations: [UNSPECIFIED ABDOMINAL PAIN] Onset: 02-13-2023 Episodic Menstrual disorders (5 sources) Irregular menstruation, unspecified; Translations: [IRREGULAR MENSTRUATION UNSPECIFIED] Onset: 10-07-2022 Chronic Other complications of ; puerperium affecting management of mother (1 source) Smoking (tobacco) complicating childbirth; Translations: [SMOKING TOBACCO COMP CHILDBIRTH] Onset: 02-13-2023 Episodic Other complications of (4 sources) Other specified related conditions, third trimester; Translations: [OTH SPEC PREG RELATED COND 3RD TRI] Onset: 02-11-2023 Episodic Other and delivery including normal (10 sources) Single live ; Translations: [Encounter for supervision of normal , unspecified, second trimester] Onset: 09-21-2022 Episodic Other screening for suspected conditions (not mental disorders or infectious disease) (17 sources) Encounter for suspected problem with amniotic cavity and membrane ruled out; Translations: [Encounter for other screening follow-up] Onset: 11-03-2022 Episodic Residual codes; unclassified (1 source) Unspecified blood type, Rh negative; Translations: [UNSPECIFIED BLOOD TYPE RH NEGATIVE] Onset: 2023 Episodic Residual codes; unclassified (1 source) 29 weeks gestation of ; Translations: [29 WEEKS GESTATION OF ] Onset: 2023 Episodic Residual codes; unclassified (1 source) 28 weeks gestation of ; Translations: [28 WEEKS GESTATION OF ] Onset: 02-13-2023 Episodic Residual codes; unclassified (1 source) 22 weeks gestation of ; Translations: [22 WEEKS GESTATION OF ] Onset: 12-28-2022 Episodic Substance-related disorders (1 source) Nicotine dependence, cigarettes, uncomplicated; Translations: [NICOTINE DEPEND CIGARETTES UNCOMP] Onset: 02-13-2023 Chronic Past or Other Problems Problem Classification Problem Date Documented Date Episodic/Chronic Immunizations and screening for infectious disease (2 sources) Encounter for screening for human papillomavirus (HPV); Translations: [Contact with and (suspected) exposure to infections with a predominantly sexual mode of transmission] Onset: 11-06-2022 Episodic Other female genital disorders (1 source) Other specified noninflammatory disorders of vagina; Translations: [OTH SPEC NONINFLAMMATORY D/O VAGINA] Onset: 11-06-2022 Episodic Results Test Name Value Interpretation Reference Range Facility TYPE AND SCREENon 02-11-2023 TYPE AND SCREEN Negative Normal [facility] Comment on above: Performed By: #### V AGINT #### [facility] [address] [place] [address] Dr. Kelly Montilla CULTURE URINEon 02-08-2023 CULTURE URINE Culture Observations : LIGHT GROWTH OF MIXED GENITAL ALBAN. NO POTENTIAL PATHOGENS SEEN. Normal [facility] Comment on above: Performed By: #### V AGINT #### [facility] [address] [place] [address] Dr. Kelly Montilla UA (CLEAN/CATCH) BILINGUAL BRANCH MANAGER/MICRO I F IND.on 02-08-2023 Bilirubin Ql (U) Negative Normal NEGATIVE [facility] Comment on above: Performed By: #### U ACSIND, UMICRO #### [facility] [address] [place] [address] Dr. Kelly Montilla Clarity (U) CLEAR Normal CLEAR [facility] Comment on above: Performed By: #### U ACSIND, UMICRO #### [facility] [address] [place] [address] Dr. Kelly Montilla Color (U) YELLOW Normal YELLOW [facility] Comment on above: Performed By: #### U ACSIND, UMICRO #### [facility] [address] [address] [address] Kelly Montilla Glucose Ql (U) Negative Normal NEGATIVE [facility] Comment on above: Performed By: #### U ACSIND, UMICRO #### [facility] [address] [address] [address] Kelly Montilla Hemoglobin Ql (U) Negative Normal NEGATIVE [facility] Comment on above: Performed By: #### U ACSIND, UMICRO #### [facility] [address] [address] [address] Kelly Montilla Ketones Ql (U) Negative Normal NEGATIVE [facility] Comment on above: Performed By: #### U ACSIND, UMICRO #### [facility] [address] [address] [address] Kelly Montilla LEUKOCYTES SMALL Abnormal NEGATIVE [facility] Comment on above: Performed By: #### U ACSIND, UMICRO #### [facility] [address] [address] [address] Kelly Montilla Nitrite Ql (U) Negative Normal NEGATIVE [facility] Comment on above: Performed By: #### U ACSIND, UMICRO #### [facility] [address] [address] [address] Kelly Montilla pH (U) 7.5 [pH] Normal 5-9 [facility] Comment on above: Performed By: #### U ACSIND, UMICRO #### [facility] [address] [address] [address] Kelly Montilla SPEC GRAVITY 1.020 Normal 1.005-<=1.025 [facility] Comment on above: Performed By: #### U ACSIND, UMICRO #### [facility] [address] [address] [address] Kelly Montilla UA PROTEIN TRACE Normal NEGATIVE/ TRACE [facility] Comment on above: Performed By: #### U ACSIND, UMICRO #### [facility] [address] [address] [address] Kelly Montilla UR MICRO IND INDICATED Normal [facility] Comment on above: Performed By: #### U ACSIND, UMICRO #### [facility] [address] [address] [address] Kelly Montilla Urobilinogen Qn (U) 4 {Maria C'U}/dL Abnormal 0.2 - 1.0 [facility] Comment on above: Performed By: #### U ACSIND, UMICRO #### [facility] [address] [address] [address] Kelly Montilla URINE MICROSCOPIC ONLYon BACTERIA SMALL Abnormal NONE SEEN [facility] Comment on above: Performed By: #### U ACSIND, UMICRO #### [facility] [address] [place] [address] Dr. Kelly Montilla Bacteria identified Cx Nom (U) INDICATED Normal [facility] Comment on above: Performed By: #### U ACSIND, UMICRO #### [facility] [address] [place] [address] Dr. Kelly Montilla CAST NONE SEEN Normal NONE SEEN [facility] Comment on above: Performed By: #### U ACSIND, UMICRO #### [facility] [address] [place] [address] Dr. Kelly Montilla Crystals LM Nom (Urine sed) NONE SEEN Normal NONE SEEN [facility] Comment on above: Performed By: #### U ACSIND, UMICRO #### [facility] [address] [place] [address] Dr. Kelly Montilla Epithelial cells LM Ql (Urine sed) FEW Abnormal NONE SEEN /RARE [facility] Comment on above: Performed By: #### U ACSIND, UMICRO #### [facility] [address] [address] [address] Kelly Montilla MUCOUS TRACE Abnormal NONE SEEN [facility] Comment on above: Performed By: #### U ACSIND, UMICRO #### [facility] [address] [place] [address] Dr. Kelly Montilla RBC 0-2 Normal 0-2 [facility] Comment on above: Performed By: #### U ACSIND, UMICRO #### [facility] [address] [address] [address] Kelly Montilla WBC 5-10 Abnormal NONE SEEN [facility] Comment on above: Performed By: #### U ACSLUIS FELIPE, UMICRO #### [facility] [address] [address] [address] Kelly Montilla CBC AUTO DIFFon 01-27-2023 BASO # 0.0 103/ul Normal 0.0-0.1 [facility] Comment on above: Performed By: #### C BC #### [facility] [address] [place] [address] Dr. Kelly Montilla Basophils/100 WBC (Bld) 0.2 % Normal 0.2-2.0 [facility] Comment on above: Performed By: #### C BC #### [facility] [address] [place] [address] Dr. Kelly Montilla EO # 0.2 103/ul Normal 0.0-0.7 [facility] Comment on above: Performed By: #### C BC #### [facility] [address] [place] [address] Dr. Kelly Montilla Eosinophils/100 WBC (Bld) 1.6 % Normal 0.9-7.0 [facility] Comment on above: Performed By: #### C BC #### [facility] [address] [place] [address] Dr. Kelly Montilla Erythrocyte distribution width (RBC) [Ratio] 13.2 % Normal 11.0-15.0 [facility] Comment on above: Performed By: #### C BC #### [facility] [address] [place] [address] Dr. Kelly Montilla Hematocrit (Bld) [Volume fraction] 33.7 % Critically low 36.0-48.0 [facility] Comment on above: Performed By: #### C BC #### [facility] [address] [place] [address] Dr. Kelly Montilla Hemoglobin (Bld) [Mass/Vol] 11.5 g/dL Critically low 12.0-16.0 [facility] Comment on above: Performed By: #### C BC #### [facility] [address] [place] [address] Dr. Kelly Montilla IG # 0.03 10e3/ul Normal 0.00-0.03 [facility] Comment on above: Performed By: #### C BC #### [facility] [address] [place] [address] Dr. Kelly Montilla IG % 0.3 % Normal 0.0-0.5 [facility] Comment on above: Performed By: #### C BC #### [facility] [address] [place] [address] Dr. Kelly Montilla LYMPH # 2.0 103/ul Normal 1.2-3.8 [facility] Comment on above: Performed By: #### C BC #### [facility] [address] [place] [address] Dr. Kelly Montilla Lymphocytes/100 WBC (Bld) 21.4 % Normal 20.5-60.0 [facility] Comment on above: Performed By: #### C BC #### [facility] [address] [place] [address] Dr. Kelly Montilla MANUAL DIFF REQ NO Normal [facility] Comment on above: Performed By: #### C BC #### [facility] [address] [place] [address] Dr. Kelly Montilla MCH (RBC) [Entitic mass] 33.4 pg Normal 26.7-34.0 [facility] Comment on above: Performed By: #### C BC #### [facility] [address] [place] [address] Dr. Kelly Montilla MCHC (RBC) [Mass/Vol] 34.1 g/dL Normal 29.9-35.2 [facility] Comment on above: Performed By: #### C BC #### [facility] [address] [place] [address] Dr. Kelly Montilla MCV (RBC) [Entitic vol] 98.0 fL Normal 81.0-99.0 [facility] Comment on above: Performed By: #### C BC #### [facility] [address] [address] [address] Kelly Montilla MONO # 0.6 103/ul Normal 0.3-0.8 [facility] Comment on above: Performed By: #### C BC #### [facility] [address] [address] [address] Kelly Montilla Monocytes/100 WBC (Bld) 6.4 % Normal 1.7-12.0 [facility] Comment on above: Performed By: #### C BC #### [facility] [address] [place] [address] Dr. Kelly Montilla NEUT # 6.6 103/ul Critically high 1.4-6.5 [facility] Comment on above: Performed By: #### C BC #### [facility] [address] [place] [address] Dr. Kelly Montilla Neutrophils/100 WBC (Bld) 70.1 % Normal 43.0-75.0 [facility] Comment on above: Performed By: #### C BC #### [facility] [address] [place] [address] Dr. Kelly Montilla Platelet mean volume (Bld) [Entitic vol] 9.3 fL Critically low 9.5-13.5 [facility] Comment on above: Performed By: #### C BC #### [facility] [address] [place] [address] Dr. Kelly Montilla PLT 203 103/ul Normal 150-450 [facility] Comment on above: Performed By: #### C BC #### [facility] [address] [place] [address] Dr. Kelly Montilla RBC 3.44 106/ul Critically low 4.20-5.40 [facility] Comment on above: Performed By: #### C BC #### [facility] [address] [place] [address] Dr. Kelly Montilla WBC 9.4 103/ul Normal 4.0-11.0 [facility] Comment on above: Performed By: #### C BC #### [facility] [address] [place] [address] Dr. Kelly Montilla GLUCOSE - 1HRon 01-27-2023 Glucose [Mass/Vol] 73 mg/dL Critically low 74-106 [facility] Comment on above: Performed By: #### V AGINT #### [facility] [address] [place] [address] Dr. Kelly Montilla AMNISUREon 12-24-2022 AMNISURE Negative Normal NEGATIVE [facility] Comment on above: Performed By: #### V AGINT #### [facility] [address] [place] [address] Dr. Kelly Montilla CULTURE URINEon 12-24-2022 CULTURE URINE Culture Observations : LIGHT GROWTH OF MIXED GENITAL ALBAN. NO POTENTIAL PATHOGENS SEEN. Normal [facility] Comment on above: Performed By: #### U RCX #### [facility] [address] [place] [address] Dr. Kelly Montilla UA (CLEAN/CATCH) BILINGUAL BRANCH MANAGER/MICRO I F IND.on 12-24-2022 Bilirubin Ql (U) Negative Normal NEGATIVE [facility] Comment on above: Performed By: #### U ACSIND, UMICRO #### [facility] [address] [place] [address] Dr. Kelly Montilla Clarity (U) CLEAR Normal CLEAR [facility] Comment on above: Performed By: #### U ACSIND, UMICRO #### [facility] [address] [place] [address] Dr. Kelly Montilla Color (U) YELLOW Normal YELLOW [facility] Comment on above: Performed By: #### U ACSIND, UMICRO #### [facility] [address] [place] [address] Dr. Kelly Montilla Glucose Ql (U) Negative Normal NEGATIVE [facility] Comment on above: Performed By: #### U ACSIND, UMICRO #### [facility] [address] [place] [address] Dr. Kelly Montilla Hemoglobin Ql (U) Negative Normal NEGATIVE [facility] Comment on above: Performed By: #### U ACSIND, UMICRO #### [facility] [address] [place] [address] Dr. Kelly Montilla Ketones Ql (U) Negative Normal NEGATIVE [facility] Comment on above: Performed By: #### U ACSIND, UMICRO #### [facility] [address] [address] [address] Kelly Montilla LEUKOCYTES SMALL Abnormal NEGATIVE [facility] Comment on above: Performed By: #### U ACSIND, UMICRO #### [facility] [address] [address] [address] Kelly Montilla Nitrite Ql (U) Negative Normal NEGATIVE [facility] Comment on above: Performed By: #### U ACSIND, UMICRO #### [facility] [address] [address] [address] Kelyl Montilla pH (U) 6.0 [pH] Normal 5-9 [facility] Comment on above: Performed By: #### U ACSIND, UMICRO #### [facility] [address] [place] [address] Dr. Kelly Montilla SPEC GRAVITY 1.025 Normal 1.005-<=1.025 [facility] Comment on above: Performed By: #### U ACSIND, ICRO #### [facility] [address] [place] [address] Dr. Kelly Montilla UA PROTEIN Negative Normal NEGATIVE/ TRACE [facility] Comment on above: Performed By: #### U ACSIND, UMICRO #### [facility] [address] [address] [address] Kelly Montilla UR MICRO IND INDICATED Normal [facility] Comment on above: Performed By: #### U ACSIND, UMICRO #### [facility] [address] [address] [address] Kelly Montilla Urobilinogen Qn (U) 1.0 {Maria C'U}/dL Normal 0.2 - 1. 0 [facility] Comment on above: Performed By: #### U ACSIND, UMICRO #### [facility] [address] [place] [address] Dr. Kelly Montilla URINE MICROSCOPIC ONLYon BACTERIA MODERATE Abnormal NONE SEEN [facility] Comment on above: Performed By: #### U ACSIND, UMICRO #### [facility] [address] [address] [address] Kelly Montilla Bacteria identified Cx Nom (U) INDICATED Normal [facility] Comment on above: Performed By: #### U ACSIND, UMICRO #### [facility] [address] [address] [address] Kelly Montilla CAST NONE SEEN Normal NONE SEEN [facility] Comment on above: Performed By: #### U ACSIND, UMICRO #### [facility] [address] [address] [address] Kelly Montilla Crystals LM Nom (Urine sed) NONE SEEN Normal NONE SEEN [facility] Comment on above: Performed By: #### U ACSIND, UMICRO #### [facility] [address] [place] [address] Dr. Kelly Montilla Epithelial cells LM Ql (Urine sed) FEW Abnormal NONE SEEN /RARE [facility] Comment on above: Performed By: #### U ACSIND, UMICRO #### [facility] [address] [place] [address] Dr. Kelly Montilla MUCOUS TRACE Abnormal NONE SEEN [facility] Comment on above: Performed By: #### U ACSIND, UMICRO #### [facility] [address] [place] [address] Dr. Kelly Montilla RBC NONE SEEN Abnormal 0-2 [facility] Comment on above: Performed By: #### U ACSLUIS FELIEP, UMICRO #### [facility] [address] [place] [address] Dr. Kelly Montilla WBC 5-10 Abnormal NONE SEEN [facility] Comment on above: Performed By: #### U ACSLUIS FELIPE, UMICRO #### [facility] [address] [place] [address] Dr. Kelly Montilla US PREG INCOMPLETE ANATOMYon 12-23-2022 US PREG INCOMPLETE ANATOMY EXAMINATION: US PREG INCOMPLETE ANATOMY HISTORY: screening COMPARISON: Ultrasound anatomy 12/13/2022 FINDINGS: Presentation: Cephalic Heart rate: 140 bpm Anatomy: spine without appreciable abnormality. GA: 22 weeks 0 days ARSLAN: 04/20/2023 IMPRESSION: 1. Single live intrauterine . 2. Adequate visualization of spine; no appreciable abnormality. Electronically authenticated by: LIAM BOYKIN Date: 2022-12-23 10:42 Normal [facility] US PREG ANATOMY SINGLEon US PREG ANATOMY SINGLE EXAMINATION: US PREG ANATOMY SINGLE HISTORY: anatomy study COMPARISON: No relevant comparison available. TECHNIQUE: Transabdominal sonographic examination was performed for obstetrical and evaluation. FINDINGS: Number: 1 Heart Rate: 147.0 bpm H.B. /min Amniotic Fluid Volume: Subjectively normal Placental Location: POSTERIOR with lower margin 2.6 cm from os. Cervix Length: 4.1 cm; closed. ANATOMY: Normal Structures -cerebellum, choroid plexus, cisterna magna, lateral cerebral ventricles, orbits, midline falx, hard palate, four-chamber heart, RVOT, LVOT, stomach, kidneys, bladder, umbilical cord insertion into abdomen, three-vessel cord, right upper extremity, left upper extremity, right lower extremity, left lower extremity. SUBOPTIMALLY SEEN: Spine ABNORMALITIES: None BIOMETRY: BPD: 4.9 cm 20 weeks 5 days HC: 17.9 cm 20 weeks 2 days AC: 16.2 cm 21 weeks 2 days FL: 3.3 cm 20 weeks 2 days EFW:376.2 grams; 56% FL/AC: 20.3 FL/BPD: 67.8 HC/AC: 1.1 GESTATIONAL AGE: Age by EDC: 20 weeks 4 days ARSLAN by EDC: 04/20/2023 Age by current US: 20 weeks 5 days ARSLAN by current US: 04/27/2023 IMPRESSION: 1. Single live intrauterine with growth detailed above. 2. Suboptimal visualization of the spine due to position. Electronically authenticated by: LIAM BOYKIN Date: 2022-12-13 16:10 Normal [facility] AFP MATERNAL FOR SPINA BIFID Aon 12-11-2022 AFP MoM 0.91 Normal [facility] Comment on above: Performed By: #### U TOMÁS JEAN #### [facility] [address] [place] [address] Dr. Kelly Montilla AFP Value 51.5 ng/mL Normal [facility] Comment on above: Performed By: #### U TED UMICRO #### [facility] [address] [address] [address] Kelly Montilla AFP, Serum for Spina Bifida Report Normal [facility] Comment on above: Performed By: #### U TED UMICRO #### [facility] [address] [address] [address] Kelly Montilla Comment Comment Normal [facility] Comment on above: Result Comment: Vannessa Alcala, Ph.D., [facility] Director . References: Available Upon Request. . Multiples Of Median Cutoffs For AFP Elevations Stinson 2.5 Black 2.8 IDD 2.0 Twins 4.5 Abbreviation Definitions IDD - Insulin Dep Diabetes OSBR - Open Spina Bifida Risk . For further inquiries contact [employer] at [phone]. . This test was developed and its performance characteristics determined by [employer]. It has not been cleared or approved by the Food and Drug Administration. Performed By: #### U TED UMICRO #### [facility] [address] [address] [address] Kelly Montilla Gest Age Collection Date 20.0 weeks Normal [facility] Comment on above: Performed By: #### U TED ICRO #### [facility] [address] [address] [address] Kelly Montilla Gestat, Age Based on Ultrasound Normal [facility] Comment on above: Result Comment: 14.9 on 11/03/2022 Recalculations are not recommended when gestational dating by LMP and ultrasound are within 10 days. Performed By: #### U TED UMICRO #### [facility] [address] [address] [address] Kelly Montilla Insulin Dep Diabetes No Normal [facility] Comment on above: Performed By: #### U TED UMICRO #### [facility] [address] [address] [address] Kelly Montilla Interpretation Comment Normal [facility] Comment on above: Result Comment: Inte rpretation: Screen Negative . This result is screen negative for OSB. The AFP MoM calculated is based on the gestational age provided. MS-AFP can identify up to 80% of open neural tube defects. Closed neural tube defects and some open defects may not be detected by this test. This test does not screen for Down Syndrome or Trisomy 18. If screening for Down Syndrome or Trisomy 18 is desired, contact [employer] to discuss available options. The [employer] recommends amniocentesis be offered to women age 35 and older. Performed By: #### U TED UMICRO #### [facility] [address] [place] [address] Dr. Kelly Montilla [age] Normal [facility] Comment on above: Performed By: #### U ACSLUIS FELIPE UMICRO #### [facility] [address] [place] [address] Dr. Kelly Montilla Multiple Gestation No Normal [facility] Comment on above: Performed By: #### U ACSLUIS FELIPE UMICRO #### [facility] [address] [place] [address] Dr. Kelly Montilla [place] 1 [place] [address] Normal [facility] Comment on above: Performed By: #### U TED UMICRO #### [facility] [address] [place] [address] Dr. Kelly Montilla PDF . [facility] Comment on above: Performed By: #### U TED UMICRO #### [facility] [address] [place] [address] Dr. Kelly Montilla Race Normal [facility] Comment on above: Performed By: #### U ACSLUIS FELIPE UMICRO #### [facility] [address] [place] [address] Dr. Kelly Montilla Test Results: Negative Normal [facility] Comment on above: Performed By: #### U ACSLUIS FELIPE UMICRO #### [facility] [address] [place] [address] Dr. Kelly Montilla PAP ACOG PANEL 2: 21 to 29on 11-11-2022 . . Normal [facility] Comment on above: Performed By: #### [id number] #### [facility] [address] [place] [address] Dr. Kelly Montilla Age Gdln ACOG Testing 21-29 [facility] Comment on above: Performed By: #### [id number] #### [facility] [address] [place] [address] Dr. Kelly Montilla DIAGNOSIS: Comment [facility] Comment on above: Result Comment: NEGA TIVE FOR INTRAEPITHELIAL LESION OR MALIGNANCY. THIS SPECIMEN WAS RESCREENED PART OF OUR PHYSICIAN OFFICE CLIN ASST PROGRAM. Performed By: #### [id number] #### [facility] [address] [place] [address] Dr. Kelly Montilla Methodology: Comment [facility] Comment on above: Result Comment: This liquid based ThinPrep(R) pap test was screened with the use of an image guided system. Performed By: #### [id number] #### [facility] [address] [place] [address] Dr. Kelly Montilla Note: Comment Normal [facility] Comment on above: Result Comment: The Pap smear is a screening test designed to aid in the detection of premalignant and malignant conditions of the uterine cervix. It is not a diagnostic procedure and should not be used as the sole means of detecting cervical cancer. Both false-positive and false-negative reports do occur. . Performed By: #### [id number] #### [facility] [address] [place] [address] Dr. Kelly Montilla Performed by: Comment Normal [facility] Comment on above: Result Comment: Hector Bowles, Clinical Advisor (ASCP) Performed By: #### [id number] #### [facility] [address] [place] [address] Dr. Kelly Montilla QC reviewed by: Comment Normal [facility] Comment on above: Result Comment: Woo Lawrence, Supervisory Clinical Advisor (ASCP) Performed By: #### [id number] #### [facility] [address] [place] [address] Dr. Kelly Montilla Reflex Criteria: Comment [facility] Comment on above: Result Comment: The HPV DNA reflex criteria were not met with this specimen result therefore, no HPV testing was performed. . Performed By: #### [id number] #### [facility] [address] [place] [address] Dr. Kelly Montilla Specimen adequacy: Comment Normal [facility] Comment on above: Result Comment: Sati sfactory for evaluation. Endocervical and/or squamous metaplastic cells (endocervical component) are present. Performed By: #### [id number] #### [facility] [address] [place] [address] Dr. Kelly Montilla CHLAMYDIA/GONOCOCCUS DONTA (SW AB/URINE/PAPon 11-07-2022 Chlamydia trachomatis, DONTA Negative Normal Negative [facility] Comment on above: Performed By: #### V AGINT #### [facility] [address] [place] [address] Dr. Kelly Montilla Neisseria gonorrhoeae, DONTA Negative Normal Negative [facility] Comment on above: Performed By: #### V AGINT #### [facility] [address] [place] [address] Dr. Kelly Montilla VAGINITIS/VAGINOSIS DNA PROB Buster 11-05-2022 Patty species Negative Normal Negative [facility] Comment on above: Performed By: #### V AGINT #### [facility] [address] [place] [address] Dr. Kelly Montilla Gardnerella vaginalis Negative Normal Negative [facility] Comment on above: Performed By: #### V AGINT #### [facility] [address] [place] [address] Dr. Kelly Montilla Trichomonas vaginalis Negative Normal Negative [facility] Comment on above: Performed By: #### V AGINT #### [facility] [address] [place] [address] Dr. Kelly Montilla HEP B SURFACE ANTIGEN SCREEN on 10-08-2022 HBsAg Screen Negative Normal Negative [facility] Comment on above: Performed By: #### H BSANS #### [facility] [address] [place] [address] Dr. Kelly Montilla HEPATITIS C VIRUS AB W/ REFL EX QUANTon 10-08-2022 HCV AB <0.1 Normal 0.0-0.9 [facility] Comment on above: Performed By: #### U TOMÁS JEAN #### [facility] [address] [place] [address] Dr. Kelly Montilla Interpretation: Comment Normal [facility] Comment on above: Result Comment: Nega tive Not infected with HCV, unless recent infection is suspected or other evidence exists to indicate HCV infection. Performed By: #### U BIRTTON JEANRO #### [facility] [address] [address] [address] Kelly Montilla HIV 1 AND 2 WITH REFLEXon HIV Screen 4th Generation wRfx Non-Reactive Normal Non Reactive [facility] Comment on above: Result Comment: HIV Negative HIV-1/HIV-2 antibodies and HIV-1 p24 antigen were NOT detected. There is no laboratory evidence of HIV infection. Performed By: #### H IV12 #### [facility] [address] [place] [address] Dr. Kelly Montilla RPR QUANTon 10-08-2022 Rapid Plasma Reagin, Quant Non-Reactive Normal NonRea<1:1 [facility] Comment on above: Result Comment: Jacob varela Note: This test does not meet current guidelines for screening and diagnosis of syphilis. This test is intended for following treatment response in patients being treated for syphilis infection. To screen for syphilis infection, a reflex cascade that includes both RPR and a treponema-specific assay should be utilized, such as Treponema pallidum (Syphilis) Screening Mcdonald ([id number]) or Rapid Plasma Reagin (RPR) Test With Reflex to Quantitative RPR and Confirmatory Treponema pallidum Antibodies ([id number]). Performed By: #### U BRITTON JEANRO #### [facility] [address] [place] [address] Dr. Kelly Montilla RUBELLA AB IGGon 10-08-2022 Rubella Antibodies, IgG 4.88 index Normal Immune >0.99 [facility] Comment on above: Result Comment: Non- immune <0.90 Equivocal 0.90 - 0.99 Immune >0.99 Performed By: #### U TOMÁS JEAN #### [facility] [address] [address] [address] Kelly Montilla CBC AUTO DIFFon 10-07-2022 BASO # 0.0 103/ul Normal 0.0-0.1 [facility] Comment on above: Performed By: #### V AGINT #### [facility] [address] [address] [address] Kelly Montilla Basophils/100 WBC (Bld) 0.4 % Normal 0.2-2.0 [facility] Comment on above: Performed By: #### V AGINT #### [facility] [address] [place] [address] Dr. Kelly Montilla EO # 0.1 103/ul Normal 0.0-0.7 [facility] Comment on above: Performed By: #### V AGINT #### [facility] [address] [place] [address] Dr. Kelly Montilla Eosinophils/100 WBC (Bld) 1.6 % Normal 0.9-7.0 [facility] Comment on above: Performed By: #### V AGINT #### [facility] [address] [place] [address] Dr. Kelly Montilla Erythrocyte distribution width (RBC) [Ratio] 12.4 % Normal 11.0-15.0 [facility] Comment on above: Performed By: #### V AGINT #### [facility] [address] [place] [address] Dr. Kelly Montilla Hematocrit (Bld) [Volume fraction] 35.4 % Critically low 36.0-48.0 [facility] Comment on above: Performed By: #### V AGINT #### [facility] [address] [place] [address] Dr. Kelly Montilla Hemoglobin (Bld) [Mass/Vol] 12.4 g/dL Normal 12.0-16.0 [facility] Comment on above: Performed By: #### V AGINT #### [facility] [address] [place] [address] Dr. Kelly Montilla IG # 0.02 10e3/ul Normal 0.00-0.03 [facility] Comment on above: Performed By: #### V AGINT #### [facility] [address] [place] [address] Dr. Kelly Montilla IG % 0.3 % Normal 0.0-0.5 [facility] Comment on above: Performed By: #### V AGINT #### [facility] [address] [place] [address] Dr. Kelly Montilla LYMPH # 1.8 103/ul Normal 1.2-3.8 [facility] Comment on above: Performed By: #### V AGINT #### [facility] [address] [place] [address] Dr. Kelly Montilla Lymphocytes/100 WBC (Bld) 23.6 % Normal 20.5-60.0 [facility] Comment on above: Performed By: #### V AGINT #### [facility] [address] [place] [address] Dr. Kelly Montilla MANUAL DIFF REQ NO Normal [facility] Comment on above: Performed By: #### V AGINT #### [facility] [address] [place] [address] Dr. Kelly Montilla MCH (RBC) [Entitic mass] 31.6 pg Normal 26.7-34.0 [facility] Comment on above: Performed By: #### V AGINT #### [facility] [address] [place] [address] Dr. Kelly Montilla MCHC (RBC) [Mass/Vol] 35.0 g/dL Normal 29.9-35.2 [facility] Comment on above: Performed By: #### V AGINT #### [facility] [address] [place] [address] Dr. Kelly Montilla MCV (RBC) [Entitic vol] 90.3 fL Normal 81.0-99.0 [facility] Comment on above: Performed By: #### V AGINT #### [facility] [address] [place] [address] Dr. Kelly Montilla MONO # 0.4 103/ul Normal 0.3-0.8 [facility] Comment on above: Performed By: #### V AGINT #### [facility] [address] [address] [address] Kelly Montilla Monocytes/100 WBC (Bld) 5.4 % Normal 1.7-12.0 [facility] Comment on above: Performed By: #### V AGINT #### [facility] [address] [address] [address] Kelly Montilla NEUT # 5.2 103/ul Normal 1.4-6.5 [facility] Comment on above: Performed By: #### V AGINT #### [facility] [address] [address] [address] Kelly Montilla Neutrophils/100 WBC (Bld) 68.7 % Normal 43.0-75.0 [facility] Comment on above: Performed By: #### V AGINT #### [facility] [address] [place] [address] Dr. Kelly Montilla Platelet mean volume (Bld) [Entitic vol] 9.3 fL Critically low 9.5-13.5 [facility] Comment on above: Performed By: #### V AGINT #### [facility] [address] [place] [address] Dr. Kelly Monitlla PLT 217 103/ul Normal 150-450 [facility] Comment on above: Performed By: #### V AGINT #### [facility] [address] [place] [address] Dr. Kelly Montilla RBC 3.92 106/ul Critically low 4.20-5.40 [facility] Comment on above: Performed By: #### V AGINT #### [facility] [address] [place] [address] Dr. Kelly Montilla WBC 7.6 103/ul Normal 4.0-11.0 [facility] Comment on above: Performed By: #### V AGINT #### [facility] [address] [place] [address] Dr. Kelly Montilla CULTURE URINEon 10-07-2022 CULTURE URINE Culture Observations : LIGHT GROWTH OF MIXED GENITAL ALBAN. NO POTENTIAL PATHOGENS SEEN. Normal [facility] Comment on above: Performed By: #### U RCX #### [facility] [address] [address] [address] Kelly Montilla GLYCOHEMOGLOBIN A1Con 2022 ADA RECOMMENDATION SEE BELOW Normal [facility] Comment on above: Result Comment: ADA RECOMMENDED LIMIT 4.0 - 6.0 ADA THERAPEUTIC TARGET < 7.0 ACTION SUGGESTED > 7.0 Performed By: #### U ACSNANCI BRISCOEICRO #### [facility] [address] [address] [address] Kelly Montilla Glucose [Mass/Vol] 97 mg/dL Normal [facility] Comment on above: Performed By: #### U ACSBRITTON BRISCOERO #### [facility] [address] [address] [address] Kelly Montilla HbA1c (Bld) [Mass fraction] 5.0 % Normal 4.5-6.2 [facility] Comment on above: Performed By: #### U ACSBRITTON BRISCOERO #### [facility] [address] [place] [address] Dr. Kelly Montilla MYRA BOX TEST PT SEND OUTo n 10-07-2022 SENT TO REF LAB 10/07/2022 Normal [facility] Comment on above: Performed By: #### N BOX #### [facility] [address] [place] [address] Dr. Kelly Montilla TYPE AND SCREENon 10-07-2022 TYPE AND SCREEN Negative Normal [facility] Comment on above: Performed By: #### V AGINT #### [facility] [address] [place] [address] Dr. Kelly Montilla US PREG TVon 09-16-2022 US PREG TV EXAMINATION: US PREG TV HISTORY: Missed period COMPARISON: No relevant comparison available. FINDINGS: Transvaginal images Stinson intrauterine gestation Gestational sac: 3.25 cm, 8 weeks 2 days CRL: 1.67 cm, 8 weeks 0 days Yolk sac: 3.6 mm Heart rate: 166 bpm Cervix: Closed, 5.2 cm The uterus is normal in appearance, anteflexed The ovaries are normal in appearance. Left ovarian corpus luteal cyst Clinical age: Not provided Ultrasound age: 8 weeks 0 days Ultrasound ARSLAN: 04/28/2023 IMPRESSION: Viable stinson intrauterine gestation measuring 8 weeks 0 days Electronically authenticated by: MICHELLE HAMMER Date: 2022-09-16 09:19 Normal [facility] ED Note-Physicianon 06-12-20 ED Note-Physician Basic Information Time Seen: Ilana Ornelas DO 06/10/2020 13:46 Chief Complaint Intermittent SOB and palpitations ongoing for a month. Denies chest pain. Seen at [facility] x3 for same problem. Was told 2 days ago she may have pneumonia. Taking zpack and inhalaher as prescribed with no relief. Anxious. History of Present Illness Pt is a 25 year old female who presents to the ED for chest pain and anxiety. Upon interview, she exhibits excessive worry about multiple different systems. She states she was just at [place] [facility] where she had a chest x-ray that showed pneumonia. She stated she has been on Z-pack for the past two days for it. The patient is in acute distress and states she was never told what her chest x-ray results were. She has been diagnosed with generalized anxiety disorder and was prescribed Buspar for it. She also reports a long history of panic attacks that she says occur more frequently at night. The patient endorses sweating, numbness/tingling in her upper extremities, burning feeling of her feet bilaterally, and constipation. She denies any history of heart disease. Review of Systems Constitutional: no fever, no chills, no sweats, no weakness Respiratory: no shortness of breath, no cough, no orthopnea, no wheezing Cardiovascular: no chest pain, no palpitations, no edema Gastrointestinal: no nausea, no vomiting, no diarrhea, no GI bleeding Genitourinary: no dysuria, no hematuria, no discharge, no pain Musculoskeletal: no back pain, no trauma Neurologic: no headache, mild dizziness, mild numbness, no weakness Psychiatric: mild sleeping problems, no irritability, mild mood swings/depression. Additional ROS info: Except as noted in the above Review of Systems and in the History of Present Illness all other systems have been reviewed and are negative or noncontributory. Physical Exam Vitals & Measurements HT: 163 cm HT: 163.0 cm WT: 63 kg WT: 63.0 kg BMI: 23.71 General: alert, mild distress Skin: warm, dry Head: no trauma, normocephalic Cardiovascular: regular rate and rhythm, normal peripheral perfusion Respiratory: Lungs CTA, respirations non labored Chest wall: no deformity. Gastrointestinal: soft, non distended, no tenderness, no guarding. Back: No tenderness, Normal ROM, Normal alignment. Extremities: no deformity, no trauma Neurological: oriented x 4, LOC appropriate for age, motor strength equal & normal bilaterally, sensation equal & normal bilaterally, speech normal Psychiatric: cooperative, affect appropriate for age, normal judgement, normal psychiatric thoughts. Medical Decision Making 1535: [facility] records requested at time of Pt arrival. Did not receive until 1510. CXR with no pneumonia. Will also add at D-dimer to her [facility] labs. ED tests discussed with Pt. Recommend d/c antibiotics and follow up with PCP. Discussed setting up holter monitor. Encouraged to return if any further issues or concerns. Assessment/Plan 1. Palpitations (R00.2: Palpitations) Orders: Automated Diff CBC w/ Auto Diff Comprehensive Metabolic Panel D-Dimer eGFR Extra SST Tube Holter Monitor 48 hr Troponin 0 Hr. U Beta Hcg Qual UA With Cult Reflex XR Chest 2 Views Disposition Plan Discharge Prescription List Prescriptions No active prescription medications Follow-up With When Contact Information JAYSHREE LEIJA Within 2 to 3 [address] [place] [address] [phone] Business (1) Additional Instructions: Return to ED if symptoms worsen. Cut back on Caffeine. You will be contacted to get a 48 hour heart monitor set up. Call your [employer] to discuss your frequent urination. Patient Education Palpitations Attestation Patient was treated and evaluated by the Medical Student. The attending physician was in the Emergency Department at all times and supervised care. The case was discussed with the attending physician and diagnostics were reviewed as needed. Problem List/Past Medical History Ongoing Ankle pain Dermatitis Foot pain Group B streptococcus Rh negative Smoker Historical None Procedure/Surgical History Betamethasone (07/15/2016), Betamethasone (07/14/2016), dental work (1997), Denies. Medications Inpatient No active inpatient medications Home Motrin 600 mg Tab, 600 mg= 1 tab(s), Oral, q6hr Motrin 600 mg Tab, 600 mg= 1 tab(s), Oral, q6hr Multivitamins, 1 tab(s), Oral, Daily Zofran 4 mg Tab, 4 mg= 1 tab(s), Oral, q6hr Allergies penicillin (hives) Social History Alcohol - Denies Alcohol Use, 07/07/2011 Employment/School - Not employed or in school, 05/13/2013 Home/Environment - No Risk, 05/13/2013 Lives with aunt. Alcohol abuse in household: No. Substance abuse in household: No. Smoker in household: Yes. Feels unsafe at home: Yes. Family/Friends available for support: Yes. Concern for family members at home: No. Major illness in household: No. Financial concerns: No. TV/Computer concerns: No., 05/13/2013 Nutrition/Health - No Risk, 05/13/2013 Regular, Diet restrictions: none. Sleeping concerns: No. Feels highly stressed: No., 05/13/2013 Substance Abuse - Denies Substance Abuse, 07/07/2011 Tobacco - Denies Tobacco Use, 08/28/2016 Former Smoker, Cigarettes, 01/17/2016 Current, Cigarettes, 7 per day., 06/21/2012 Current, Cigarettes, 10 per day., 02/21/2012 Family History Primary malignant neoplasm of colon: Father. Lab Results WBC: 6.6 E9/L (06/10/20 15:17:00) RBC: 4.3 E12/L (06/10/20 15:17:00) Hgb: 14.1 gm/dL (06/10/20 15:17:00) Hct: 40.9 % (06/10/20 15:17:00) MCV: 94.5 fL (06/10/20 15:17:00) MCH: 32.6 pg (06/10/20 15:17:00) MCHC: 34.5 gm/dL (06/10/20 15:17:00) RDW: 12.8 % (06/10/20 15:17:00) Platelet: 220 E9/L (06/10/20 15:17:00) MPV: 7.2 fL (06/10/20 15:17:00) Neutro Auto: 67.4 % (06/10/20 15:17:00) Lymph Auto: 24.5 % (06/10/20 15:17:00) Mineral Auto: 6.1 % (06/10/20 15:17:00) Eos Auto: 1.7 % (06/10/20 15:17:00) Basophil Auto: 0.3 % (06/10/20 15:17:00) Neutro Absolute: 4.5 E9/L (06/10/20 15:17:00) Lymph Absolute: 1.6 E9/L (06/10/20 15:17:00) Mineral Absolute: 0.4 E9/L (06/10/20 15:17:00) Eos Absolute: 0.1 E9/L (06/10/20 15:17:00) Basophil Absolute: 0 E9/L (06/10/20 15:17:00) D-Dimer: <215 Low (06/10/20 15:58:00) Glucose Lvl: 84 mg/dL (06/10/20 15:17:00) BUN: 9 mg/dL (06/10/20 15:17:00) Creatinine: 0.6 mg/dL (06/10/20 15:17:00) eGFR: >60 (06/10/20 15:17:00) eGFR AA: >60 (06/10/20 15:17:00) BUN/Creat Ratio: 15 (06/10/20 15:17:00) Sodium Lvl: 138 mmol/L (06/10/20 15:17:00) Potassium Lvl: 4.1 mmol/L (06/10/20 15:17:00) Chloride: 104 mmol/L (06/10/20 15:17:00) CO2: 25 mmol/L (06/10/20 15:17:00) AGAP: 13 mEq/L (06/10/20 15:17:00) Calcium Lvl: 9.2 mg/dL (06/10/20 15:17:00) Alk Phos: 34 Int._Unit/L (06/10/20 15:17:00) ALT: 11 Int._Unit/L (06/10/20 15:17:00) AST: 12 Int._Unit/L (06/10/20 15:17:00) Total Protein: 7 gm/dL (06/10/20 15:17:00) Albumin Lvl: 4 gm/dL (06/10/20 15:17:00) Globulin: 3 gm/dL (06/10/20 15:17:00) A/G Ratio: 1.3 (06/10/20 15:17:00) Bili Total: 0.8 mg/dL (06/10/20 15:17:00) Troponin: <2.30 Low (06/10/20 15:17:00) UA Spec Desc: Random Urine (06/10/20 15:29:00) UA Color: Yellow2 (06/10/20 15:29:00) UA Clarity: Clear2 (06/10/20 15:29:00) UA Spec Grav: 1.010 (06/10/20 15:29:00) UA pH: 7.5 (06/10/20 15:29:00) UA Protein: NEGATIVE1 (06/10/20 15:29:00) UA Glucose: NEGATIVE1 (06/10/20 15:29:00) UA Ketones: NEGATIVE1 (06/10/20 15:29:00) UA Bili: NEGATIVE1 (06/10/20 15:29:00) UA Blood: NEGATIVE1 (06/10/20 15:29:00) UA Nitrite: NEGATIVE1 (06/10/20 15:29:00) UA Urobilinogen: 0.2 (06/10/20 15:29:00) UA Leuk Est: NEGATIVE1 (06/10/20 15:29:00) UA RBC: 0-3 (06/10/20 15:29:00) UA Squam Epithelial: 0-2 (06/10/20 15:29:00) UA WBC: 0-5 (06/10/20 15:29:00) UA Mucous: Trace2 (06/10/20 15:29:00) U beta hCG Ql: Negative (06/10/20 15:29:00) Diagnostic Results XR Chest 2 Views 06/10/20 16:14:20 IMPRESSION: NO RADIOGRAPHIC EVIDENCE OF ACUTE INTRATHORACIC PROCESS. EXAMINATION: XR Chest 2 Views HISTORY: Chest pain. Shortness of breath. TECHNIQUE: Frontal and lateral views of the chest. COMPARISON: None available FINDINGS: Cardiomediastinal silhouette is within normal limits. No pneumothorax, pleural effusion, or consolidation. Bones of the thorax appear intact. Signed By: Mike Payan DO EKG Results EC06/10/20: SINUS RHYTHM WITH SINUS ARRHYTHMIA POSSIBLE RIGHT VENTRICULAR CONDUCTION DELAY RATE 72, NO ST ELEVATION OR DEPRESSION BORDERLINE ECG Signed By: Ilana Ornelas DO 06/10/2020 14:00:35 Normal [facility] Comment on above: Result Comment: Elec tronically Signed By: Maricarmen Reyes\.br\Date and Time Signed: 06/10/20 14:20 EDT\.br\Electronically Co-Signed By: Ilana Ornelas DO\.br\Date and Time Co-Signed: 06/12/20 12:11 EDT Coding Summary.on 06-11-2020 Coding Summary. CODING DATE: 06/11/2020 FINAL [facility] STATUS: Home (Routine DC) PAYOR: Medicaid EAPG DESCRIPTION 0425 LEVEL I OTHER MISCELLANEOUS ANCILLARY PROCEDURES 0471 PLAIN FILM 0403 ORGAN OR DISEASE ORIENTED PANELS 0410 URINALYSIS 0400 LEVEL I CHEMISTRY TESTS 0408 LEVEL I HEMATOLOGY TESTS 0406 LEVEL I CLOTTING TESTS 0413 CARDIOGRAM ADMIT DX: REASON FOR VISIT DX: R07.9 Chest pain, unspecified F41.9 Anxiety disorder, unspecified FINAL DX: PRINCIPAL: R00.2 Palpitations SECONDARY: Z87.891 Personal history of nicotine dependence PYMT PROC EAPG STAT DESCRIPTION DOCTOR NAME DATE NOTE: The code number assigned matches the documented diagnosis and / or procedure in the patient's chart. However, the narrative phrase printed from the coding software may appear abbreviated, or result in slightly different terminology. Coded By: Emiliana Yee Date Saved: 06/11/2020 07:43 am Normal [facility] Auto Diffon 06-10-2020 Basophils/100 WBC (Bld) 0.3 % Normal 0.0-2.0 [facility] Comment on above: Order Comment: Order Added by Discern Expert. Performed By: #### 2 984058, 9595437, 6439872, 31783322, [id number] #### [facility] [address] [place] [address] Basophils/Leukocytes Auto (Bld) [Pure # fraction] 0.0 E9/L Normal 0.0-0.2 [facility] Comment on above: Order Comment: Order Added by Discern Expert. Performed By: #### 2 713257, 2910375, 0097710, 01753443, 71986061 #### [facility] [address] [place] [address] 35081 Eosinophils/100 WBC (Bld) 1.7 % Normal 0.0-8.0 [facility] Comment on above: Order Comment: Order Added by Discern Expert. Performed By: #### 2 963190, 1545236, 9694764, 83068493, 51734782 #### [facility] [address] [place] [address] 44178 Eosinophils/Leukocyt es Auto (Bld) [Pure # fraction] 0.1 E9/L Normal 0.0-0.5 [facility] Comment on above: Order Comment: Order Added by Kamla Expert. Performed By: #### 2 215512, 6493863, 5404522, 65210019, 14411066 #### [facility] [address] [place] [address] 85946 Lymphocytes/100 WBC (Bld) 24.5 % Normal 14.0-50.0 [facility] Comment on above: Order Comment: Order Added by Kamla Expert. Performed By: #### 2 239519, 3468936, 9372338, 69189457, 94054354 #### [facility] [address] [place] [address] 27144 Lymphocytes/Leukocyt es Auto (Bld) [Pure # fraction] 1.6 E9/L Normal 1.0-4.0 [facility] Comment on above: Order Comment: Order Added by Kamla Expert. Performed By: #### 2 213757, 3052955, 7793750, 51479759, 14779109 #### [facility] [address] [place] [address] 35481 Monocytes/100 WBC (Bld) 6.1 % Normal 4.0-14.0 [facility] Comment on above: Order Comment: Order Added by Kamla Expert. Performed By: #### 2 537461, 6008327, 3468668, 74139886, 81959589 #### [facility] [address] [place] [address] Monocytes/Leukocytes Auto (Bld) [Pure # fraction] 0.4 E9/L Normal 0.2-1.0 [facility] Comment on above: Order Comment: Order Added by Discern Expert. Performed By: #### 2 360512, 6079743, 3682754, 19872237, 69180248 #### [facility] [address] [place] [address] Neutrophils/100 WBC (Bld) 67.4 % Normal 36.0-75.0 [facility] Comment on above: Order Comment: Order Added by Discern Expert. Performed By: #### 2 383779, 3335854, 5005394, 86322201, 29992099 #### [facility] [address] [place] [address] 28340 Neutrophils/Leukocyt es Auto (Bld) [Pure # fraction] 4.5 E9/L Normal 2.0-7.5 [facility] Comment on above: Order Comment: Order Added by Discern Expert. Performed By: #### 2 455845, 9661742, 2168075, 25674454, 84485126 #### [facility] [address] [place] [address] 95408 CBC w/ Auto Diffon 0 Erythrocyte distribution width (RBC) [Ratio] 12.8 % Normal 10.9-14.2 [facility] Comment on above: Performed By: #### 2 413039, 7328864, 0453589, 46110307, 22183239 #### [facility] [address] [place] [address] Hematocrit (Bld) [Volume fraction] 40.9 % Normal 34.0-46.0 [facility] Comment on above: Performed By: #### 2 530458, 2850770, 4730675, 67493379, 28606626 #### [facility] [address] [place] [address] 48391 Hemoglobin (Bld) [Mass/Vol] 14.1 g/dL Normal 12.0-16.0 [facility] Comment on above: Performed By: #### 2 150886, 2335619, 5380861, 50872346, 96869799 #### [facility] [address] [place] [address] MCH (RBC) [Entitic mass] 32.6 pg Normal 27.0-34.0 [facility] Comment on above: Performed By: #### 2 244397, 5904379, 5502833, 30643385, 98637714 #### [facility] [address] [place] [address] MCHC (RBC) [Mass/Vol] 34.5 g/dL Normal 31.4-36.0 [facility] Comment on above: Performed By: #### 2 669420, 0660299, 7932093, 60799769, 32682160 #### [facility] [address] [place] [address] 47544 MCV (RBC) [Entitic vol] 94.5 fL Normal 80.0-100.0 [facility] Comment on above: Performed By: #### 2 202939, 7159592, 4261840, 98261136, 36722558 #### [facility] [address] [place] [address] 27914 Platelet mean volume (Bld) [Entitic vol] 7.2 fL Normal 6.4-10.8 [facility] Comment on above: Performed By: #### 2 024911, 4535406, 9740434, 24483574, 82229138 #### [facility] [address] [place] [address] 91025 Platelets (Bld) [#/Vol] 220.0 E9/L Normal 150.0-500.0 [facility] Comment on above: Performed By: #### 2 150796, 3841466, 1648658, 24432739, 45820189 #### [facility] [address] [place] [address] 67878 RBC (Bld) [#/Vol] 4.3 E12/L Normal 4.3-5.9 [facility] Comment on above: Performed By: #### 2 294620, 7376063, 4219377, 19747812, 02907320 #### [facility] [address] [place] [address] WBC corrected for nucl RBC Auto (Bld) [#/Vol] 6.6 E9/L Normal 4.0-11.0 [facility] Comment on above: Performed By: #### 2 468698, 6988950, 3321211, 21274560, 12194532 #### [facility] [address] [place] [address] CMPon 06-10-2020 Albumin [Mass/Vol] 1.3 g/dL Normal 1.1-2.2 [facility] Comment on above: Performed By: #### 2 969120, 1904290, 9487107, 44678817, 51543792 #### [facility] [address] [place] [address] Albumin [Mass/Vol] 4.0 g/dL Normal 3.3-5.0 [facility] Comment on above: Performed By: #### 2 190766, 0547151, 8114062, 17043281, 84902362 #### [facility] [address] [place] [address] 81995 ALP [Catalytic activity/Vol] 34 Int._Unit/L Normal 21-98 [facility] Comment on above: Performed By: #### 2 938558, 5692682, 9057495, 15607533, 06507665 #### [facility] [address] [place] [address] ALT No additional P-5'-P [Catalytic activity/Vol] 11 Int._Unit/L Normal 6-46 [facility] Comment on above: Performed By: #### 2 679911, 0588668, 5783731, 40914428, 82591780 #### [facility] [address] [place] [address] AST [Catalytic activity/Vol] 12 Int._Unit/L Normal 5-43 [facility] Comment on above: Performed By: #### 2 288955, 2652852, 0537403, 00752192, 62873989 #### [facility] [address] [place] [address] Bilirubin [Mass/Vol] 0.8 mg/dL Normal 0.0-1.1 [facility] Comment on above: Performed By: #### 2 320199, 6690542, 8802026, 71415622, 13728586 #### [facility] [address] [place] [address] Creatinine [Mass/Vol] 0.6 mg/dL Normal 0.5-1.3 [facility] Comment on above: Performed By: #### 2 609757, 5348928, 5534041, 70331453, 13118137 #### [facility] [address] [place] [address] Globulin (S) [Mass/Vol] 3.0 g/dL Normal 1.4-4.0 [facility] Comment on above: Performed By: #### 2 321511, 5568888, 1670327, 79986632, 55644746 #### [facility] [address] [place] [address] Protein [Mass/Vol] 7.0 g/dL Normal 6.0-7.8 [facility] Comment on above: Performed By: #### 2 776049, 7027265, 5446300, 88673504, 40759108 #### [facility] [address] [place] [address] Urea nitrogen [Mass/Vol] 9 mg/dL Normal 5-21 [facility] Comment on above: Performed By: #### 2 044584, 1119034, 0104452, 51756824, 89319222 #### [facility] [address] [place] [address] Urea nitrogen/Creatinine [Mass ratio] 15 No Units Normal 10-20 [facility] Comment on above: Performed By: #### 2 549445, 8658866, 8257407, 42943067, 34104895 #### [facility] [address] [place] [address] Anion gap [Moles/Vol] 13 mmol/L Normal 6-16 [facility] Comment on above: Performed By: #### 2 228174, 8731715, 5623326, 19582219, 06672357 #### [facility] [address] [place] [address] Calcium [Mass/Vol] 9.2 mg/dL Normal 8.9-11.1 [facility] Comment on above: Performed By: #### 2 824833, 4077288, 9901149, 63464890, 15627257 #### [facility] [address] [place] [address] Chloride [Moles/Vol] 104 mmol/L Normal 101-111 [facility] Comment on above: Performed By: #### 2 003581, 4832485, 6628413, 50139289, 22843314 #### [facility] [address] [place] [address] CO2 [Moles/Vol] 25 mmol/L Normal 21-31 [facility] Comment on above: Performed By: #### 2 485831, 4733759, 4257474, 97262612, 74935406 #### [facility] [address] [place] [address] Glucose [Mass/Vol] 84 mg/dL Normal 55-199 [facility] Comment on above: Result Comment: If t his glucose result represents a fasting glucose, interpretation should refer to the following reference range: 55-99 mg/dL Performed By: #### 2 225613, 5229421, 8445063, 13639010, 45683359 #### [facility] [address] [place] [address] Potassium [Moles/Vol] 4.1 mmol/L Normal 3.5-5.3 [facility] Comment on above: Performed By: #### 2 784641, 9615282, 8415529, 01164000, 33119943 #### [facility] [address] [place] [address] Sodium [Moles/Vol] 138 mmol/L Normal 135-145 [facility] Comment on above: Performed By: #### 2 587309, 0210017, 2136595, 21230680, 03571289 #### [facility] [address] [place] [address] Consent for Treatmenton Consent for Treatment [id number] 0CD:127 Normal [facility] D-Dimeron 06-10-2020 Fibrin D-dimer FEU (PPP) [Mass/Vol] <215 Low 215-500 [facility] Comment on above: Result Comment: This D-Dimer assay may be used in conjunction with a non-high clinical pretest probability assessment to exclude deep-vein thrombosis(DVT). For exclusion of venous thrombosis or pulmonary embolism the analyte D-Dimer should not be used as an aid in patients with: Therapeutic dose anticoagulant therapy for >24 hours Fibrinolytic therapy within previous 7 days Trauma or surgery within previous 4 weeks Disseminated malignacies Aortic aneurysm Sepsis, severe infections, pneumonia, severe skin infections Liver cirrhosis Performed By: #### 2 409335 #### [facility] [address] [place] [address] Discharge Instructionson Discharge Instructions [id number] 0CD:127 Normal [facility] ED Clinical Summaryon 2019 ED Clinical Summary [address] [address] ED Clinical Summary Person Information Name: ANASTACIA KU/[facility] Age: 25 Years : 1995 Sex: Female Language: Syriac PCP: JAYSHREE LEIJA CNP Marital Status: Single Phone: [phone] Visit Id: Visit Reason: Palpitations; Anxiety; SOB- SEEN IN [place] TOLD SHE HAS PNUEMONIA Speciality: Acuity: 3 Enc Type: Emergency Med Service: Emergency Arrival: 06/10/2020 13:38:02 Discharge: 06/10/2020 16:44:09 LOS: 000 03:06 Checkin: 06/10/2020 13:38:02 Checkout: 06/10/2020 16:44:09 Dispo Type: Home (Routine DC) EVENTS: Event Name Event Status Request Date/Time Start Date/Time Complete Date/Time Arrive Complete 06/10/2020 13:38:02 06/10/2020 13:38:02 06/10/2020 13:38:02 Document Home Meds Request 06/10/2020 13:38:02 Triage Complete 06/10/2020 13:38:02 06/10/2020 13:44:29 06/10/2020 13:44:29 Bed Assign Complete 06/10/2020 13:40:24 06/10/2020 13:40:24 06/10/2020 13:40:24 Dr Exam Complete 06/10/2020 13:40:24 06/10/2020 13:40:39 06/10/2020 13:40:39 RN Exam Complete 06/10/2020 13:40:24 06/10/2020 13:53:34 06/10/2020 13:53:34 Registration Complete 06/10/2020 13:40:39 06/10/2020 14:11:40 06/10/2020 14:11:40 EKG Complete 06/10/2020 13:41:19 06/10/2020 13:54:26 Dr Exam Complete 06/10/2020 13:46:30 06/10/2020 13:46:30 06/10/2020 13:46:30 Reg Complete Request 06/10/2020 14:11:40 Reg Bed Request Complete 06/10/2020 14:11:40 06/10/2020 14:11:40 06/10/2020 14:11:40 X-Ray Complete 06/10/2020 15:04:32 06/10/2020 15:56:24 06/10/2020 16:05:33 Pending Labs Complete 06/10/2020 15:04:32 06/10/2020 15:44:20 Lab Complete 06/10/2020 15:04:32 06/10/2020 15:44:20 Pending Labs Complete 06/10/2020 15:05:19 06/10/2020 15:48:50 Lab Complete 06/10/2020 15:05:19 06/10/2020 15:48:50 Urine Collect Complete 06/10/2020 15:05:19 06/10/2020 15:48:50 Pending Labs Complete 06/10/2020 15:22:28 06/10/2020 15:22:28 06/10/2020 15:44:21 Lab Complete 06/10/2020 15:22:28 06/10/2020 15:22:28 06/10/2020 15:44:21 Pending Labs Complete 06/10/2020 15:25:21 06/10/2020 15:25:21 06/10/2020 15:25:28 Lab Complete 06/10/2020 15:25:21 06/10/2020 15:25:21 06/10/2020 15:25:28 Pending Labs Complete 06/10/2020 15:34:42 06/10/2020 16:18:14 Lab Complete 06/10/2020 15:34:42 06/10/2020 16:18:14 Pending Labs Complete 06/10/2020 15:49:39 06/10/2020 15:49:39 06/10/2020 16:09:22 Wet Read Request 06/10/2020 16:05:33 Pending Labs Complete 06/10/2020 16:06:11 06/10/2020 16:06:11 06/10/2020 16:06:11 Discharge Complete 06/10/2020 16:36:43 06/10/2020 16:44:17 06/10/2020 16:44:17 Transfer Complete 06/10/2020 16:44:17 06/10/2020 16:44:17 06/10/2020 16:44:17 ADDRESS: [address] [place] [address] [facility] NOTES: MEDICAL INFORMATION: Prescriptions Given: Medications to Continue with No Changes Other Medications ibuprofen (Motrin 600 mg Tab) 1 Tablets By Mouth every 6 hours. take with food. Refills: 0. ibuprofen (Motrin 600 mg Tab) 1 Tablets By Mouth every 6 hours. take with food. Refills: 0. multivitamin, ( Multivitamins) 1 Tablets By Mouth every day. ondansetron (Zofran 4 mg Tab) 1 Tablets By Mouth every 6 hours. Refills: 0. PATIENT EDUCATION INFORMATION: Instructions: Palpitations Follow up: With: Address: When: JAYSHREE LEIJA [address] [place] [address] [phone] Business (1) Within 2 to 3 days Comments: Return to ED if symptoms worsen. Cut back on Caffeine. You will be contacted to get a 48 hour heart monitor set up. Call your Skein Straightener to discuss your frequent urination. DIAGNOSIS: 1:Palpitations Normal [facility] ED Patient Education Noteon 06-10-2020 ED Patient Education Note Family Medicine Palpitations A palpitation is the feeling that your heartbeat is irregular or is faster than normal. It may feel like your heart is fluttering or skipping a beat. Palpitations are usually not a serious problem. However, in some cases, you may need further medical evaluation. CAUSES Palpitations can be caused by: ? Smoking. ? Caffeine or other stimulants, such as diet pills or energy drinks. ? Alcohol. ? Stress and anxiety. ? Strenuous physical activity. ? Fatigue. ? Certain medicines. ? Heart disease, especially if you have a history of irregular heart rhythms (arrhythmias), such as atrial fibrillation, atrial flutter, or supraventricular tachycardia. ? An improperly working pacemaker or defibrillator. DIAGNOSIS To find the cause of your palpitations, your health care provider will take your medical history and perform a physical exam. Your health care provider may also have you take a test called an ambulatory electrocardiogram (ECG). An ECG records your heartbeat patterns over a 24-hour period. You may also have other tests, such as: ? Transthoracic echocardiogram (TTE). During echocardiography, sound waves are used to evaluate how blood flows through your heart. ? Transesophageal echocardiogram (ANANT). ? Cardiac monitoring. This allows your health care provider to monitor your heart rate and rhythm in real time. ? Holter monitor. This is a portable device that records your heartbeat and can help diagnose heart arrhythmias. It allows your health care provider to track your heart activity for several days, if needed. ? Stress tests by exercise or by giving medicine that makes the heart beat faster. TREATMENT Treatment of palpitations depends on the cause of your symptoms and can vary greatly. Most cases of palpitations do not require any treatment other than time, relaxation, and monitoring your symptoms. Other causes, such as atrial fibrillation, atrial flutter, or supraventricular tachycardia, usually require further treatment. HOME CARE INSTRUCTIONS ? Avoid: ? Caffeinated coffee, tea, soft drinks, diet pills, and energy drinks. ? Chocolate. ? Alcohol. ? Stop smoking if you smoke. ? Reduce your stress and anxiety. Things that can help you relax include: ? A method of controlling things in your body, such as your heartbeats, with your mind (biofeedback). ? Yoga. ? Meditation. ? Physical activity such as swimming, jogging, or walking. ? Get plenty of rest and sleep. SEEK MEDICAL CARE IF: ? You continue to have a fast or irregular heartbeat beyond 24 hours. ? Your palpitations occur more often. SEEK IMMEDIATE MEDICAL CARE IF: ? You have chest pain or shortness of breath. ? You have a severe headache. ? You feel dizzy or you faint. MAKE SURE YOU: ? Understand these instructions. ? Will watch your condition. ? Will get help right away if you are not doing well or get worse. Document Released: 09/15/2001 Document Revised: 09/23/2014 Document Reviewed: 11/16/2012 ExitCare? Patient Information ?2015 [employer]. This information is not intended to replace advice given to you by your health care provider. Make sure you discuss any questions you have with your health care provider. Normal [facility] ED Patient Summaryon 020 ED Patient Summary [place] [id number] Patient Discharge Instructions Person Information Name: ANASTACIA KU Age: 25 Years Arrival Date: 06/10/2020 13:38:02 Discharge Diagnosis: 1:Palpitations Primary Care Physician: JAYSHREE LEIJA CNP Provider Information Primary Provider: Ilana Ornelas DO Advanced Welding Machine Operator Plasma Arc:None The exam and treatment you received in the Emergency Department were for an urgent problem and are not intended as complete care. It is important that you follow up with a doctor, nurse practitioner, or physician?s career services assistant for ongoing care. If your symptoms become worse or you do not improve as expected and you are unable to reach your usual health care provider, you should return to the Emergency Department. We are available 24 hours a day. ANASTACIA KU has been given the following list of patient education materials, prescriptions and follow-up instructions: Follow-up Instructions: With: Address: When: JAYSHREE LEIJA [address] [address] [phone] Business (1) Within 2 to 3 days Comments: Return to ED if symptoms worsen. Cut back on Caffeine. You will be contacted to get a 48 hour heart monitor set up. Call your Skein Straightener to discuss your frequent urination. In the event that this physician does not participate in your insurance network, please consult with your insurance company to find a nearby participating provider. Patient Education Materials: Palpitations A MESSAGE TO ALL PATIENTS REGARDING OPIOIDS PRESCRIPTION OPIOIDS: WHAT YOU NEED TO KNOW Prescription opioids can be used to help relieve rldvbifo-cs-lttwfi pain and are often prescribed following a surgery or injury, or for certain health conditions. These medications can be an important part of the treatment but also come with serious risks. It is important to work with your healthcare provider to make sure you are getting the safest, most effective care. WHAT ARE THE RISKS AND SIDE EFFECTS OF OPIOID USE? Prescription opioids carry serious risks of addiction and overdose, especially with prolonged use. An opioid overdose, often marked by slowed breathing, can cause sudden . The use of prescription opioids can have a number of side effects as well, even when taken as directed: ? Tolerance?meaning you might need to take more of the medication for the same pain relief ? Physical dependence?meaning you have symptoms of withdrawal when a medication is stopped ? Increased sensitivity to pain ? Constipation ? Nausea, vomiting, and dry mouth ? Sleepiness and dizziness ? Confusion ? Depression ? Low levels of testosterone that can result in lower sex drive, energy, and strength ? Itching and sweating RISKS ARE GREATER WITH: ? History of drug misuse, substance use disorder, or overdose ? Mental health conditions (such as depression or anxiety) ? Sleep apnea ? Older age (65 years and older) ? Avoid alcohol while taking prescription opioids. Also, unless specifically advised by your health care provider, medications to avoid include: ? Benzodiazepines (such as Xanax or Valium) ? Muscle relaxants (such as Soma or Flexeril) ? Hypnotics (such as Ambien or Lunesta) ? Other prescription opioids KNOW YOUR OPTIONS Talk to your health care provider about ways to manage your pain that don?t involve prescription opioids. Some of these options may actually work better and have fewer risks and side effects. Options may include: ? Pain relievers such as acetaminophen, ibuprofen, and naproxen ? Some medication that are also used for depression or seizures ? Physical therapy and exercise ? Cognitive behavioral therapy, a psychological, goal-directed approach, in which patients learn how to modify physical, behavioral, and emotional triggers of pain and stress. IF YOU ARE PRESCRIBED OPIOIDS FOR PAIN: ? Never take opioids in greater amounts or more often than prescribed. ? Follow up with your primary health care provider. o Work together to create a plan on how to manage your pain. o Talk about ways to help manage your pain that don?t involve prescription opioids. o Talk about any and all concerns and side effects. ? Help prevent misuse and abuse o Never sell or share prescription opioids. o Never use another person?s prescription opioids. ? Store prescription opioids in a secure place and out of reach of others (this may include visitors, children, friends, and family). ? Safely dispose of unused prescription opioids: Find your community drug take-back program or your pharmacy mail-back program, or flush them down the toilet, following guidance from the Food and Drug Administration (www.fda.gov/Drugs/Res ourcesForYou). ? Visit www.cdc.gov/drugoverdo se to learn about the risks of opioids abuse and overdose. ? If you believe you may be struggling with addiction, tell your health medicare biller and ask for guidance or call [facility]S National Helpline at 8-604-907-LWIK. v Source: [place] Department of Health and Human Services/Center for Disease Control & Prevention [facility] Medications Given: Medication Dose Route No medications found. Medication Information: Medications to Continue with No Changes Other Medications ibuprofen (Motrin 600 mg Tab) 1 Tablets By Mouth every 6 hours. take with food. Refills: 0. ibuprofen (Motrin 600 mg Tab) 1 Tablets By Mouth every 6 hours. take with food. Refills: 0. multivitamin, ( Multivitamins) 1 Tablets By Mouth every day. ondansetron (Zofran 4 mg Tab) 1 Tablets By Mouth every 6 hours. Refills: 0. Comment: Pharmacy Information: SH[facility] Wolfe Thank you for choosing [facility] Patient Education Materials: Palpitations A palpitation is the feeling that your heartbeat is irregular or is faster than normal. It may feel like your heart is fluttering or skipping a beat. Palpitations are usually not a serious problem. However, in some cases, you may need further medical evaluation. CAUSES Palpitations can be caused by: ? Smoking. ? Caffeine or other stimulants, such as diet pills or energy drinks. ? Alcohol. ? Stress and anxiety. ? Strenuous physical activity. ? Fatigue. ? Certain medicines. ? Heart disease, especially if you have a history of irregular heart rhythms (arrhythmias), such as atrial fibrillation, atrial flutter, or supraventricular tachycardia. ? An improperly working pacemaker or defibrillator. DIAGNOSIS To find the cause of your palpitations, your health care provider will take your medical history and perform a physical exam. Your health care provider may also have you take a test called an ambulatory electrocardiogram (ECG). An ECG records your heartbeat patterns over a 24-hour period. You may also have other tests, such as: ? Transthoracic echocardiogram (TTE). During echocardiography, sound waves are used to evaluate how blood flows through your heart. ? Transesophageal echocardiogram (ANANT). ? Cardiac monitoring. This allows your health care provider to monitor your heart rate and rhythm in real time. ? Holter monitor. This is a portable device that records your heartbeat and can help diagnose heart arrhythmias. It allows your health care provider to track your heart activity for several days, if needed. ? Stress tests by exercise or by giving medicine that makes the heart beat faster. TREATMENT Treatment of palpitations depends on the cause of your symptoms and can vary greatly. Most cases of palpitations do not require any treatment other than time, relaxation, and monitoring your symptoms. Other causes, such as atrial fibrillation, atrial flutter, or supraventricular tachycardia, usually require further treatment. HOME CARE INSTRUCTIONS ? Avoid: ? Caffeinated coffee, tea, soft drinks, diet pills, and energy drinks. ? Chocolate. ? Alcohol. ? Stop smoking if you smoke. ? Reduce your stress and anxiety. Things that can help you relax include: ? A method of controlling things in your body, such as your heartbeats, with your mind (biofeedback). ? Yoga. ? Meditation. ? Physical activity such as swimming, jogging, or walking. ? Get plenty of rest and sleep. SEEK MEDICAL CARE IF: ? You continue to have a fast or irregular heartbeat beyond 24 hours. ? Your palpitations occur more often. SEEK IMMEDIATE MEDICAL CARE IF: ? You have chest pain or shortness of breath. ? You have a severe headache. ? You feel dizzy or you faint. MAKE SURE YOU: ? Understand these instructions. ? Will watch your condition. ? Will get help right away if you are not doing well or get worse. Document Released: 09/15/2001 Document Revised: 09/23/2014 Document Reviewed: 11/16/2012 ExitCare? Patient Information ?2015 [employer]. This information is not intended to replace advice given to you by your health care provider. Make sure you discuss any questions you have with your health care provider. ELMIRA Horton BRITTANY NICOLE , have received the following patient education materials/instructions and have verbalized understanding: Patient Education Materials: Palpitations Follow-up Instructions: With: Address: When: JAYSHREE LEIJA [address] [place] [address] [phone] Business (1) Within 2 to 3 days Comments: Return to ED if symptoms worsen. Cut back on Caffeine. You will be contacted to get a 48 hour heart monitor set up. Call your [employer] Straight[employer] to discuss your frequent urination. Patient Signature Date Clinician/Nurse Signature ___ Date 06/10/2020 16:44:19 Normal [facility] Troponin 0 Hr.on 06-10-2020 Troponin I.cardiac [Mass/Vol] ng/mL Low 10.10-27.10 [facility] Comment on above: Result Comment: The 95% CI (Confidence Interval) PPV (Positive Predictive Value) for myocardial infarction in females is 38 pg/mL, in males 51 pg/mL. The results should be used in conjunction with clinical conditions of myocardial infarction. (Access High Sensitivity Troponin I Instructions For Use, [employer], May 2018) Performed By: #### 2 [id number], [id number], [id number], [id number], [id number] #### [facility] [address] [place] [address] U BetaHcg Qualon 06-10-2020 HCG.beta subunit (U) [Moles/Vol] Negative Normal [facility] Comment on above: Performed By: #### 2 [id number], [id number] #### [facility] [address] [place] [address] UA With Cult Reflexon 2019 Bilirubin Ql (U) Negative Normal Negative [facility] Comment on above: Performed By: #### 2 [id number], [id number] #### [facility] [address] [place] [address] Clarity (U) CLEAR Normal Clear [facility] Comment on above: Performed By: #### 2 [id number], [id number] #### [facility] [address] [place] [address] Color (U) YELLOW Normal Yellow [facility] Comment on above: Performed By: #### 2 [id number], [id number] #### [facility] [address] [place] [address] Epithelial cells.squamous LM.HPF (Urine sed) [#/Area] 0-2 Normal 0-2 [facility] Comment on above: Performed By: #### 2 [id number], [id number] #### [facility] [address] [place] [address] Glucose Test strip (U) [Mass/Vol] Negative Normal Negative [facility] Comment on above: Performed By: #### 2 [id number], [id number] #### [facility] [address] [place] [address] Hemoglobin Ql (U) Negative Normal Negative [facility] Comment on above: Performed By: #### 2 [id number], [id number] #### [facility] [address] [place] [address] Ketones (U) [Mass/Vol] Negative Normal Negative [facility] Comment on above: Performed By: #### 2 [id number], [id number] #### [facility] [address] [place] [address] Brewer.plasma/Lithi um.RBC (Bld) [Mass ratio] 0-3 Normal 0-3 [facility] Comment on above: Performed By: #### 2 [id number], [id number] #### [facility] [address] [place] [address] Mucus Ql (Urine sed) TRACE Normal Fish [facility] Comment on above: Performed By: #### 2 [id number], [id number] #### [facility] [address] [place] [address] Nitrite Ql (U) Negative Normal Negative [facility] Comment on above: Performed By: #### 2 [id number], [id number] #### [facility] [address] [place] [address] pH (U) 7.5 [pH] 5.0-9.0 [facility] Comment on above: Performed By: #### 2 [id number], [id number] #### [facility] [address] [place] [address] Protein (U) [Mass/Vol] Negative Normal Negative [facility] Comment on above: Performed By: #### 2 [id number], [id number] #### [facility] [address] [place] [address] Specific gravity (U) [Rel density] 1.010 1.005-1.030 [facility] Comment on above: Performed By: #### 2 [id number], [id number] #### [facility] [address] [place] [address] UA Spec Desc Random Urine Normal [facility] Comment on above: Performed By: #### 2 [id number], [id number] #### [facility] [address] [place] [address] Urobilinogen Qn (U) 0.2 {Maria C'U}/dL Normal 0.0-1.0 [facility] Comment on above: Performed By: #### 2 [id number], [id number] #### [facility] [address] [place] [address] WBC Auto Ql (U) Negative Normal Negative [facility] Comment on above: Performed By: #### 2 [id number], [id number] #### [facility] [address] [place], [place] [id number] WBC LM.HPF (Urine sed) [#/Area] 0-5 Normal 0-5 [facility] Comment on above: Performed By: #### 2 [id number], [id number] #### [facility] [address] [place], [place] [id number] XR Chest 2 Viewson 0 XR Chest 2 Views Exam Date/Time: 06/10/2020 16:05 EDT Reason for Exam: Difficulty breathing Report IMPRESSION: NO RADIOGRAPHIC EVIDENCE OF ACUTE INTRATHORACIC PROCESS. EXAMINATION: XR Chest 2 Views HISTORY: Chest pain. Shortness of breath. TECHNIQUE: Frontal and lateral views of the chest. COMPARISON: None available FINDINGS: Cardiomediastinal silhouette is within normal limits. No pneumothorax, pleural effusion, or consolidation. Bones of the thorax appear intact. FINAL REPORT Dictated: 06/10/2020 4:11 pm Mike Payan DO Signed (Electronic Signature): 06/10/2020 4:11 pm Signed by: Mike Payan DO Transcribed by: KARLEY Technologist: LAWRENCE Hdz [facility] eGFRon 06-10-2020 GFR/1.73 sq M predicted among blacks MDRD (S/P/Bld) [Vol rate/Area] mL/min/{1.73_m2} Normal >=59 [facility] Comment on above: Order Comment: Order added by Discern Expert. Result Comment: eGFR is race adjusted. AA=. Performed By: #### 2 [id number], [id number], [id number], [id number], [id number] #### [facility] [address] [place] [address] GFR/1.73 sq M predicted among non-blacks MDRD (S/P/Bld) [Vol rate/Area] mL/min/{1.73_m2} Normal >=59 [facility] Comment on above: Order Comment: Order added by Discern Expert. 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 Kidney failure is indicated at less than 15 mL/min/1.73m2. Performed By: #### 2 [id number], [id number], [id number], [id number], [id number] #### [facility] [address] [place] [address] Vital Signs Date Time Vital Sign Value Performing Clinician Chelle moffett 12-11-2022 00:05-0500 Body weight 71.[address] JAMIL DANIELS . [facility] Comment on above: Performed By: #### U ACSLUIS FELIPE UMICRO #### [facility] [address] [place], [place] [address] Dr. Kelly Montilla Encounters Encounter Date Encounter Type Care Provider Facility Start: 06-24-2024 End: 06-24-2024 ambulatory JAMIL JEREMIAH Not Available Start: 01-03-2024 End: 01-03-2024 ambulatory JAMIL JEREMIAH Not Available Start: 11-01-2023 End: 11-01-2023 ambulatory JAMIL JEREMIAH Not Available Start: 02-11-2023 End: 02-13-[address] JAMIL DANIELS . Facility[facility] Start: 02-08-2023 End: 02-08-[address] JAMIL DANIELS . Facility[facility] Start: 01-27-2023 End: 01-28-[address] JAMIL DANIELS . Facility[facility] Start: 12-24-2022 End: 12-24-2022 ambulatory JAYSHREE LEIJA Facility:[facility] Start: 12-23-2022 End: 12-24-2022 ambulatory VAISHNAVI DOMINGUEZ . Facility:[facility] Start: 12-13-2022 End: 12-14-[address] JAMIL DANIELS . Facility[facility] Start: 12-09-2022 End: 12-10-[address] JAMIL DANIELS . Facility:[facility] Start: 11-03-2022 End: 11-03-2022 ambulatory JAYSHREE LEIJA Facility:[facility] Start: 10-07-2022 End: 10-08-[address] JAMIL DANIELS . Facility[facility] Start: 09-16-2022 End: 09-17-[address] JAMIL DANIELS . Facility: Plan of Treatment Date Care Activity Detail Author Start: 02-21-2023 ambulatory Ambulatory Facility:[facility] Payers Date Payer Category Payer Unknown [id number] ..[id number] 1994 Unknown [id number] .. [id number] 1994 Unknown [id number] ..[id number] 1994 Unknown [id number] ..[id number] 0.1.951781.3.579.259 1994 Unknown [id number] ..[id number] 0.1.793340.3.579.259 1994 Unknown [id number] ..[id number] 0.1.000976.3.579.2.59 1994 Unknown [id number] ..[id number] 0.1.010918.3.579.2.593 1994 Unknown [id number] 2.16.84 0.1.105193.3.579.2.593 1994 Unknown [id number] 2.16.84 0.1.134282.3.579.2.593 1994 Unknown [id number] 2.16.84 0.1.734334.3.579.2.593 1994 Unknown [id number] 2.16.84 0.1.211638.3.579.2.593 1994 Unknown [id number] 2.16.84 0.1.757444.3.579.2.1259 1994 Unknown [id number] 2.16.84 0.1.916576.3.579.2.1259 1994 Unknown [id number] 2.16.84 0.1.109492.3.579.2.1259 1959 Self-pay 1959 Unknown [id number] 1959 Unknown [id number] Unknown [id number] 2.16.84 0.1.052730.3.579.2.593 Summary Purpose Family History No Family History Records FoundNo Family History Records FoundNo Family History Records Found Advance Directives No Advanced Directives Records FoundNo Advanced Directives Records FoundNo Advanced Directives Records Found Additional Source Comments INFORMATION SOURCE (unrecogn ized section and content) DATE CREATED AUTHOR 06/12/2020 [facility] DATE CREATED AUTHOR AUTHOR'S ORGANIZ ATION [facility] DATE CREATED AUTHOR AUTHOR'S ORGANIZ ATION 06/25/2024 [facility] FOR RECORDS PERTAINING TO PATIENTS WHO ARE OR HAVE BEEN ENROLLED IN A CHEMICAL DEPENDENCY/SUBSTANCEABUSE PROGRAM, SOME INFORMATION MAY BE OMITTED. This clinical summary was aggregated from multiple sources. Caution should be exercised in using it in the provision of clinical care. This summary normalizes information from multiple sources, and as a consequence, information in this document may materially change the coding, format and clinical context of patient data. In addition, data may be omitted in some cases. CLINICAL DECISIONS SHOULD BE BASED ON THE PRIMARY CLINICAL RECORDS. [facility], [facility]. provides no warranty or guarantee of the accuracy or completeness of information in this document.
[2024-07-11 10:56] LABS: INR 1.03; Partial Thromboplastin Time 30.7 sec (22.3-36.2); Prothrombin Time 10.9 sec (9.0-11.6)
[2024-07-11 11:24] LABS: Thyroid Stimulating Hormone 1.346 uIU/mL (0.358-3.740)
[2024-07-11 11:25] LABS: HCG Quantitative <1 mIU/mL
[2024-07-11 11:39] LABS: Estimated Average Glucose 91 mg/dL; Glycohemoglobin A1C 4.8 % (4.5-6.2)
== END 2024-07-11 10:20 | disposition home or self-care (01) ==
LOC: LAB 10:19
PROVIDERS: PCP Nurse Practitioner Family; Visit Provider Obstetrics & Gynecology
DX: R10.2 Pelvic and perineal pain (principal); N92.0 Excessive and frequent menstruation with regular cycle; N92.6 Irregular menstruation, unspecified
CPT/HCPCS: 36415; 83036; 84439; 84443; 84702; 85025; 85610; 85730

== ENCOUNTER 2024-07-15 13:15 | Outpatient (REF) | payer OTHER, SELFPAY ==
--- OUTSIDE RECORDS SUMMARY | 2024-07-19 13:20 | XMS_ITS | CCD ---
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 Name Role Phone ROSARIO ., DR NEGRON Attending Unavailable LISS, JAYSHREE Primary Care Unavailable REQUEST, DR NONE LISTED Consulting Unavaila ble ROSARIO ., DR NEGRON Admitting Unavailable ROSARIO ., DR NEGRON Attending Unavailable REQUEST, DR NONE LISTED Primary Care Unavaila ble ROSARIO ., DR NEGRON Admitting Unavailable ROSARIO ., DR NEGRON Consulting Unavailable ANGELICA ., VAISHNAVI Attending Unavailable ANGELICA ., VAISHNAVI Admitting Unavailable ZIEBER, DR LIAM Tobias Consulting Unavailable LISS, JAYSHREE Primary Care Unavailable ANGELICA ., VAISHNAVI Consulting Unavailable ROSARIO ., DR NEGRON Attending Unavailable ROSARIO ., DR NEGRON Admitting Unavailable [facility], JAYSHREE Primary Care Unavailable ROSARIO ., DR NEGRON Consulting Unavailable ROSARIO ., DR NEGRON Attending Unavailable ROSARIO ., DR NEGRON Admitting Unavailable ROSARIO ., DR NEGRON Consulting Unavailable LISS, JAYSHREE Primary Care Unavailable ROSARIO ., DR NEGRON Attending Unavailable LISS, JAYSHREE Primary Care Unavailable ROSARIO ., DR NEGRON Admitting Unavailable [place], DR MICHELLE Orellana Consulting Unavailable ROSARIO ., DR NEGRON Consulting Unavailable ROSARIO ., DR NEGRON Attending Unavailable LISS, JAYSHREE Primary Care Unavailable ROSARIO ., DR NEGRON Admitting Unavailable ROSARIO ., DR NEGRON Consulting Unavailable LISS, JAYSHREE Primary Care Unavailable ROSARIO ., DR NEGRON Consulting Unavailable ROSARIO ., DR NEGRON Attending Unavailable ROSARIO ., DR NEGRON Admitting Unavailable ROSARIO ., DR NEGRON Attending Unavailable ROSARIO ., DR NEGRON Admitting Unavailable LISS, JAYSHREE Primary Care Unavailable ROSARIO ., DR NEGRON Consulting Unavailable ROSARIO ., DR NEGRON Attending Unavailable ROSARIO ., DR NEGRON Admitting Unavailable JAYSHREE LEIJA Primary Care Unavailable ROSARIO ., DR NEGRON Consulting Unavailable LUCRETIA, DR LIAM Tobias Consulting Unavailable JAYSHREE LEIJA Primary Care Unavailable RAMU HARVEY Attending Unavailable RAMU HARVEY Admitting Unavailable RAMU HARVEY Consulting Unavailable ROSARIO ., DR NEGRON Attending Unavailable ROSARIO ., DR NEGRON Admitting Unavailable REQUEST, DR SEA LISTED Primary Care Unavaila ble ROSARIO ., DR NEGRON Consulting Unavailable Arodlo HAGAN, Mundo Primary Care Provider [phone] Rosario DO Jamil Unavailable JAMIL PONCE Attending Unavailable ROSARIO, JAMIL Attending Unavailable ROSARIO, JAMIL Attending Unavailable ROSARIO, JAMIL Attending Unavailable NO FAMILY, PHYSICIAN Primary Care Unavailable Jamil Ponce Attending Unavailable Marquez Poncey Admitting Unavailable NO FAMILY, PHYSICIAN Primary Care Provider Unava ilable DO Jamil Ponce Attending Provider Allergies Allergy Classification Reported Allergen(s) Allergy Type Date of Onset Reaction(s) Facility (1 source) Morphine Drug Allergy 8 [facility] Rep[facility] (1 source) Penicillins Drug allergy (disorder) 5 [facility] (2 sources) Amoxicillin Drug Allergy 3 Hives [facility] Work Phone: (2 sources) Penicillins Propensity to adverse reactions 3 [facility] Medications Current Medications Medication Drug Class(es) Dates Sig (Normalized) Sig (Original) 0.5 ml buprenorphine 200 mg/ml prefilled syringe (2 sources) Partial Opioid Agonist Start: 09-27-2023 Sublocade 100 MG/0.5ML injection 09/27/2023 Active etonogestrel 68 mg drug implant (2 sources) Progestin etonogestrel-elu tin g 68 mg contraceptive implant 1 each by Implant route 1 (one) time Active Vit-Fe Fumarate-FA ( 19) chewable tablet (2 sources) Start: 03-06-2023 take 1 tablet by mouth once daily Vit-Fe Fumarate-FA ( 19) chewable tablet TAKE 1 TABLET BY MOUTH EVERY DAY FOR 30 DAYS 03/06/2023 Active Problems Active Problems Problem Classification Problem Date Documented Da te Episodic/Chronic Menstrual disorders (10 sources) Irregular menstruation, unspecified; Translations: [Excessive and frequent menstruation] Onset: 10-07-2022 Chronic Mood disorders (2 sources) Mild depression; Translations: [Mild depression] Onset: 03-31-2023 03-31-2023 Chronic Other complications of ; puerperium affecting management of mother (1 source) Smoking (tobacco) complicating childbirth; Translations: [SMOKING TOBACCO COMP CHILDBIRTH] Onset: 02-13-2023 Episodic Other complications of (4 sources) Other specified related conditions, third trimester; Translations: [OTH SPEC PREG RELATED COND 3RD TRI] Onset: 02-11-2023 Episodic Other female genital disorders (2 sources) Abnormal uterine bleeding; Translations: [Abnormal uterine and vaginal bleeding, unspecified] Onset: 03-31-2023 03-31-2023 Chronic Other nervous system disorders (2 sources) Carpal tunnel syndrome; Translations: [Carpal tunnel syndrome, unspecified upper limb] Onset: 03-31-2023 03-31-2023 Chronic Other and delivery including normal (10 sources) [...] OF ] Onset: 12-28-2022 Episodic Substance-related disorders (5 sources) Nicotine dependence, cigarettes, uncomplicated; Translations: [Smoker] Onset: 02-13-2023 03-31-2023 Chronic Past or Other Problems Problem Classification Problem Date Documented Date Episodic/Chronic Abdominal pain (3 sources) Unspecified abdominal pain; Translations: [Female genital organ symptoms] Onset: 02-13-2023 06-24-2024 Episodic Allergic reactions (2 sources) Eczema; Translations: [Dermatitis, unspecified] Onset: 06-11-2010 03-31-2023 Episodic Genitourinary symptoms and ill-defined conditions (4 sources) Disorder of urinary tract; Translations: [Disorder of urinary system, unspecified] Onset: 03-31-2023 03-31-2023 Episodic Immunizations and screening for infectious disease (2 sources) Encounter for screening for human papillomavirus (HPV); Translations: [Contact with and (suspected) exposure to infections with a predominantly sexual mode of transmission] Onset: 11-06-2022 Episodic Malaise and fatigue (2 sources) Fatigue; Translations: [Other fatigue] Onset: 03-31-2023 03-31-2023 Episodic Nonmalignant breast conditions (2 sources) Breast tenderness; Translations: [Mastodynia] Onset: 03-31-2023 03-31-2023 Episodic Other female genital disorders (1 source) Other specified noninflammatory disorders of vagina; Translations: [OTH SPEC NONINFLAMMATORY D/O VAGINA] Onset: 11-06-2022 Episodic Other non-traumatic joint disorders (2 sources) Ankle pain; Translations: [Pain in unspecified ankle and joints of unspecified foot] Onset: 06-11-2010 03-31-2023 Episodic Residual codes; unclassified (2 sources) RhD negative; Translations: [Unspecified blood type, Rh negative] Onset: 03-31-2023 03-31-2023 Episodic Spondylosis; intervertebral disc disorders; other back problems (2 sources) Backache; Translations: [Dorsalgia, unspecified] Onset: 03-31-2023 03-31-2023 Episodic Results Test Name Value Interpretation Reference Range Facility HCG ( test) Ql (U)o n 07-15-2024 Interpretation and review of laboratory results Normal [facility] Preg Test, Ur Negative [facility] ALL CBC WITH AUTO DIFFon BASOPHILS ABSOLUTE AUTO 0.0 [facility] Basophils/100 WBC (Bld) 0.6 % 0.2 - 2.0 % [facility] Eosinophils/100 WBC (Bld) 1.7 % 0.9 - 7.0 % [facility] Erythrocyte distribution width (RBC) [Ratio] 12.5 % 11.0 - 15.0 % [facility] Hematocrit (Bld) [Volume fraction] 42.1 % 36.0 - 48.0 % [facility] Hemoglobin (Bld) [Mass/Vol] 14.3 g/dL 12.0 - 16.0 g/dL [facility] IMMATURE GRANULOCYTES ABS AUTO 0.00 [facility] Immature granulocytes/100 WBC (Bld) 0.0 % 0.0 - 0.5 % [facility] LYMPHOCYTES ABSOLUTE AUTO 1.7 [facility] Lymphocytes/100 WBC (Bld) 27.1 % 20.5 - 60.0 % [facility] MCH (RBC) [Entitic mass] 31.8 pg 26.7 - 34.0 pg [facility] MCHC (RBC) [Mass/Vol] 34.0 g/dL 29.9 - 35.2 g/dL [facility] MCV (RBC) [Entitic vol] 93.6 fL 81.0 - 99.0 fL [facility] MONOCYTES ABSOLUTE AUTO 0.5 [facility] Monocytes/100 WBC (Bld) 8.1 % 1.7 - 12.0 % [facility] NEUTROPHILS ABSOLUTE AUTO 3.9 [facility] Neutrophils/100 WBC (Bld) 62.5 % 43.0 - 75.0 % [facility] Platelet mean volume (Bld) [Entitic vol] 9.8 fL 9.5 - 13.5 fL [facility] EO # 0.1 [facility] TB PLT 210 [facility] RBC 4.50 [facility] WBC 6.3 [facility] TYPE AND SCREENon 02-11-2023 TYPE AND SCREEN Negative Normal [facility] Comment on above: Performed By: #### V AGINT #### [facility] [address] [place] [address] Dr. Kelly Montilla CULTURE URINEon 02-08-2023 CULTURE URINE Culture Observations : LIGHT GROWTH OF MIXED GENITAL ALBAN. NO POTENTIAL PATHOGENS SEEN. Normal [facility] Comment on above: Performed By: #### V AGINT #### [facility] [address] [address] [address] Kelly Montilla UA (CLEAN/CATCH) SPA COORDINATOR/MICRO I F IND.on 02-08-2023 Bilirubin Ql (U) Negative Normal NEGATIVE [facility] Comment on above: Performed By: #### U ACSIND, UMICRO #### [facility] [address] [address] [address] Kelly Montilla Clarity (U) CLEAR Normal CLEAR [facility] Comment on above: Performed By: #### U ACSIND, UMICRO #### [facility] [address] [address] [address] Kelly Montilla Color (U) YELLOW Normal YELLOW [facility] Comment on above: Performed By: #### U ACSIND, UMICRO #### [facility] [address] [place] [address] Dr. Kelly Montilla Glucose Ql (U) Negative Normal NEGATIVE [facility] Comment on above: Performed By: #### U ACSIND, UMICRO #### [facility] [address] [place] [address] Dr. Kelly Montilla Hemoglobin Ql (U) Negative Normal NEGATIVE [facility] Comment on above: Performed By: #### U ACSIND, ICRO #### [facility] [address] [place] [address] Dr. Kelly Montilla Ketones Ql (U) Negative Normal NEGATIVE [facility] Comment on above: Performed By: #### U ACSIND, UMICRO #### [facility] [address] [address] [address] Kelly Montilla LEUKOCYTES SMALL Abnormal NEGATIVE [facility] Comment on above: Performed By: #### U ACSIND, UMICRO #### [facility] [address] [place] [address] Dr. Kelly Montilla Nitrite Ql (U) Negative Normal NEGATIVE [facility] Comment on above: Performed By: #### U ACSIND, UMICRO #### [facility] [address] [address] [address] Kelly Montilla pH (U) 7.5 [pH] Normal 5-9 [facility] Comment on above: Performed By: #### U ACSIND, UMICRO #### [facility] [address] [address] [address] Kelly Montilla SPEC GRAVITY 1.020 Normal 1.005-<=1.025 [facility] Comment on above: Performed By: #### U ACSIND, UMICRO #### [facility] [address] [address] [address] Kelly Montilla UA PROTEIN TRACE Normal NEGATIVE/ TRACE [facility] Comment on above: Performed By: #### U ACSIND, UMICRO #### [facility] [address] [address] [address] Kelly Montilla UR MICRO IND INDICATED Normal [facility] Comment on above: Performed By: #### U ACSIND, UMICRO #### [facility] [address] [place] [address] Dr. Kelly Montilla Urobilinogen Qn (U) 4 {Maria C'U}/dL Abnormal 0.2 - 1.0 [facility] Comment on above: Performed By: #### U ACSIND, UMICRO #### [facility] [address] [place] [address] Dr. Kelly Montilla URINE MICROSCOPIC ONLYon BACTERIA SMALL Abnormal NONE SEEN [facility] Comment on above: Performed By: #### U ACSIND, UMICRO #### [facility] [address] [place] [address] Dr. Kelly Montilla Bacteria identified Cx Nom (U) INDICATED Normal [facility] Comment on above: Performed By: #### U ACSIND, UMICRO #### [facility] [address] [address] [address] Kelly Montilla CAST NONE SEEN Normal NONE SEEN [facility] Comment on above: Performed By: #### U ACSIND, UMICRO #### [facility] [address] [address] [address] Kelly Montilla Crystals LM Nom (Urine sed) NONE SEEN Normal NONE SEEN [facility] Comment on above: Performed By: #### U ACSIND, UMICRO #### [facility] [address] [place] [address] Dr. Kelly Montilla Epithelial cells LM Ql (Urine sed) FEW Abnormal NONE SEEN /RARE [facility] Comment on above: Performed By: #### U TED, UMICRO #### [facility] [address] [place] [address] Dr. Kelly Montilla MUCOUS TRACE Abnormal NONE SEEN [facility] Comment on above: Performed By: #### U ACSLUIS FELIPE, UMICRO #### [facility] [address] [place] [address] Dr. Kelly Montilla RBC 0-2 Normal 0-2 [facility] Comment on above: Performed By: #### U TED ICRO #### [facility] [address] [place] [address] Dr. Kelly Montilla WBC 5-10 Abnormal NONE SEEN [facility] Comment on above: Performed By: #### U TED [facility] #### [facility] [address] [place] [address] Dr. Kelly Montilla CBC AUTO DIFFon 01-27-2023 BASO # 0.0 103/ul Normal 0.0-0.1 [facility] Comment on above: Performed By: #### C BC #### [facility] [address] [place] [address] Dr. Kelly Montilla Basophils/100 WBC (Bld) 0.2 % Normal 0.2-2.0 [facility] Comment on above: Performed By: #### C BC #### [facility] [address] [place] [address] Dr. Kelly Montilla EO # 0.2 103/ul Normal 0.0-0.7 [facility] Comment on above: Performed By: #### C BC #### [facility] [address] [place] [address] Dr. Kelly Montilla Eosinophils/100 WBC (Bld) 1.6 % Normal 0.9-7.0 [facility] Comment on above: Performed By: #### C BC #### [facility] [address] [place] [address] Dr. Kelly Montilla Erythrocyte distribution width (RBC) [Ratio] 13.2 % Normal 11.0-15.0 [facility] Comment on above: Performed By: #### C BC #### [facility] [address] [place] [address] Dr. Kelly Montilla Hematocrit (Bld) [Volume fraction] 33.7 % Critically low 36.0-48.0 [facility] Comment on above: Performed By: #### C BC #### [facility] [address] [place] [address] Dr. Kelly Montilla Hemoglobin (Bld) [Mass/Vol] 11.5 g/dL Critically low 12.0-16.0 [facility] Comment on above: Performed By: #### C BC #### [facility] [address] [place] [address] Dr. Kelly Montilla IG # 0.03 10e3/ul Normal 0.00-0.03 [facility] Comment on above: Performed By: #### C BC #### [facility] [address] [place] [address] Dr. Kelly Montilla IG % 0.3 % Normal 0.0-0.5 [facility] Comment on above: Performed By: #### C BC #### [facility] [address] [place] [address] Dr. Kelly Montilla LYMPH # 2.0 103/ul Normal 1.2-3.8 [facility] Comment on above: Performed By: #### C BC #### [facility] [address] [place] [address] Dr. Kelly Montilla Lymphocytes/100 WBC (Bld) 21.4 % Normal 20.5-60.0 [facility] Comment on above: Performed By: #### C BC #### [facility] [address] [place] [address] Dr. Kelly Montilla MANUAL DIFF REQ NO Normal [facility] Comment on above: Performed By: #### C BC #### [facility] [address] [place] [address] Dr. Kelly Montilla MCH (RBC) [Entitic mass] 33.4 pg Normal 26.7-34.0 [facility] Comment on above: Performed By: #### C BC #### [facility] [address] [place] [address] Dr. Kelly Montilla MCHC (RBC) [Mass/Vol] 34.1 g/dL Normal 29.9-35.2 [facility] Comment on above: Performed By: #### C BC #### [facility] [address] [address] [address] Kelly Montilla MCV (RBC) [Entitic vol] 98.0 fL Normal 81.0-99.0 [facility] Comment on above: Performed By: #### C BC #### [facility] [address] [place] [address] Dr. Kelly Montilla MONO # 0.6 103/ul Normal 0.3-0.8 [facility] Comment on above: Performed By: #### C BC #### [facility] [address] [place] [address] Dr. Kelly Montilla Monocytes/100 WBC (Bld) 6.4 % Normal 1.7-12.0 [facility] Comment on above: Performed By: #### C BC #### [facility] [address] [place] [address] Dr. Kelly Montilla NEUT # 6.6 103/ul Critically high 1.4-6.5 [facility] Comment on above: Performed By: #### C BC #### [facility] [address] [place] [address] Dr. Kelly Montilla Neutrophils/100 WBC (Bld) 70.1 % Normal 43.0-75.0 [facility] Comment on above: Performed By: #### C BC #### [facility] [address] [place] [address] Dr. Kelly Montilla Platelet mean volume (Bld) [Entitic vol] 9.3 fL Critically low 9.5-13.5 [facility] Comment on above: Performed By: #### C BC #### [facility] [address] [place] [address] Dr. Kelly Montilla PLT 203 103/ul Normal 150-450 [facility] Comment on above: Performed By: #### C BC #### [facility] [address] [place] [address] Dr. Kelly Montilla RBC 3.44 106/ul Critically low 4.20-5.40 [facility] Comment on above: Performed By: #### C BC #### [facility] [address] [place] [address] Dr. Kelly Montilla WBC 9.4 103/ul Normal 4.0-11.0 [facility] Comment on above: Performed By: #### C BC #### [facility] [address] [place] [address] Dr. Kelly Montilla GLUCOSE - 1HRon 01-27-2023 Glucose [Mass/Vol] 73 mg/dL Critically low 74-106 [facility] Comment on above: Performed By: #### V AGINT #### [facility] [address] [place] [address] Dr. Kelly Montilla AMNISUREon 12-24-2022 AMNISURE Negative Normal NEGATIVE [facility] Comment on above: Performed By: #### V AGINT #### [facility] [address] [place] [address] Dr. Kelly Montilla CULTURE URINEon 12-24-2022 CULTURE URINE Culture Observations : LIGHT GROWTH OF MIXED GENITAL ALBAN. NO POTENTIAL PATHOGENS SEEN. Normal [facility] Comment on above: Performed By: #### U RCX #### [facility] [address] [place] [address] Dr. Kelly Montilla UA (CLEAN/CATCH) SPA COORDINATOR/MICRO I F IND.on 12-24-2022 Bilirubin Ql (U) Negative Normal NEGATIVE [facility] Comment on above: Performed By: #### U ACSLUIS FELIPE UMICRO #### [facility] [address] [place] [address] Dr. Kelly Montilla Clarity (U) CLEAR Normal CLEAR [facility] Comment on above: Performed By: #### U ACSLUIS FELIPE UMICRO #### [facility] [address] [place] [address] Dr. Kelly Montilla Color (U) YELLOW Normal YELLOW [facility] Comment on above: Performed By: #### U ACSIND, UMICRO #### [facility] [address] [address] [address] Kelly Montilla Glucose Ql (U) Negative Normal NEGATIVE [facility] Comment on above: Performed By: #### U ACSIND, UMICRO #### [facility] [address] [address] [address] Kelly Montilla Hemoglobin Ql (U) Negative Normal NEGATIVE [facility] Comment on above: Performed By: #### U ACSIND, UMICRO #### [facility] [address] [address] [address] Kelly Montilla Ketones Ql (U) Negative Normal NEGATIVE [facility] Comment on above: Performed By: #### U ACSIND, UMICRO #### [facility] [address] [place] [address] Dr. Kelly Montilla LEUKOCYTES SMALL Abnormal NEGATIVE [facility] Comment on above: Performed By: #### U ACSIND, UMICRO #### [facility] [address] [address] [address] Kelly Montilla Nitrite Ql (U) Negative Normal NEGATIVE [facility] Comment on above: Performed By: #### U ACSIND, UMICRO #### [facility] [address] [place] [address] Dr. Kelly Montilla pH (U) 6.0 [pH] Normal 5-9 [facility] Comment on above: Performed By: #### U ACSIND, UMICRO #### [facility] [address] [address] [address] Kelly Montilla SPEC GRAVITY 1.025 Normal 1.005-<=1.025 [facility] Comment on above: Performed By: #### U ACSIND, UMICRO #### [facility] [address] [address] [address] Kelly Montilla UA PROTEIN Negative Normal NEGATIVE/ TRACE [facility] Comment on above: Performed By: #### U ACSIND, UMICRO #### [facility] [address] [place] [address] Dr. Kelly Montilla UR MICRO IND INDICATED Normal [facility] Comment on above: Performed By: #### U ACSIND, UMICRO #### [facility] [address] [place] [address] Dr. Kelly Montilla Urobilinogen Qn (U) 1.0 {Maria C'U}/dL Normal 0.2 - 1. 0 [facility] Comment on above: Performed By: #### U ACSIND, UMICRO #### [facility] [address] [place] [address] Dr. Kelly Montilla URINE MICROSCOPIC ONLYon BACTERIA MODERATE Abnormal NONE SEEN [facility] Comment on above: Performed By: #### U ACSIND, UMICRO #### [facility] [address] [place] [address] Dr. Kelly Montilla Bacteria identified Cx Nom (U) INDICATED Normal [facility] Comment on above: Performed By: #### U ACSIND, UMICRO #### [facility] [address] [place] [address] Dr. Kelly Montilla CAST NONE SEEN Normal NONE SEEN [facility] Comment on above: Performed By: #### U ACSIND, UMICRO #### [facility] [address] [place] [address] Dr. Kelly Montilla Crystals LM Nom (Urine sed) NONE SEEN Normal NONE SEEN [facility] Comment on above: Performed By: #### U ACSIND, UMICRO #### [facility] [address] [place] [address] Dr. Kelly Montilla Epithelial cells LM Ql (Urine sed) FEW Abnormal NONE SEEN /RARE [facility] Comment on above: Performed By: #### U ACSIND, UMICRO #### [facility] [address] [place] [address] Dr. Kelly Montilla MUCOUS TRACE Abnormal NONE SEEN [facility] Comment on above: Performed By: #### U ACSIND, UMICRO #### [facility] [address] [place] [address] Dr. Kelly Montilla RBC NONE SEEN Abnormal 0-2 [facility] Comment on above: Performed By: #### U ACSLUIS FELIPE, UMICRO #### [facility] [address] [place], [place] [address] Dr. Kelly Montilla WBC 5-10 Abnormal NONE SEEN [facility] Comment on above: Performed By: #### U ACSIND, UMICRO #### [facility] [address] [place], [place] [address] Dr. Kelly Montilla US PREG INCOMPLETE ANATOMYon [...] LIAM BOYKIN Date: 2022-12-23 10:42 Normal [facility] US PREG ANATOMY SINGLEon US PREG [...] LIAM BOYKIN Date: 2022-12-13 16:10 Normal [facility] AFP MATERNAL FOR SPINA BIFID Aon 12-11-2022 AFP MoM 0.91 Normal [facility] Comment on above: Performed By: #### U ACSIND, UMICRO #### [facility] [address] [place] [address] [address] Kelly Montilla AFP Value 51.5 ng/mL Normal [facility] Comment on above: Performed By: #### U ACSLUIS FELIPE, UMICRO #### [facility] [address] [place] [address] [address] Kelly Montilla AFP, Serum for Spina Bifida Report Normal [facility] Comment on above: Performed By: #### U ACSIND, UMICRO #### [facility] [address] [address] [address] Kelly Montilla Comment Comment Normal [facility] Comment on above: Result Comment: Vannessa Alcala, Ph.D., [facility] Director . References: Available Upon Request. . Multiples Of Median Cutoffs For AFP Elevations Stinson 2.5 Black 2.8 IDD 2.0 Twins 4.5 Abbreviation Definitions IDD - Insulin Dep Diabetes OSBR - Open Spina Bifida Risk . For further inquiries contact [employer] [facility] at [phone]. . This test was developed and its performance characteristics determined by [employer]. It has not been cleared or approved by the Food and Drug Administration. Performed By: #### U ACSLUIS FELIPE, UMICRO #### [facility] [address] [address] [address] Kelly Neff Age Collection Date 20.0 weeks Normal [facility] Comment on above: Performed By: #### U ACSIND, UMICRO #### [facility] [address] [address] [address] Kelly Montilla Gestat, Age Based on Ultrasound Normal [facility] Comment on above: Result Comment: 14.9 on 11/03/2022 Recalculations are not recommended when gestational dating by LMP and ultrasound are within 10 days. Performed By: #### U ACSLUIS FELIPE UMICRO #### [facility] [address] [address] [address] Kelly Montilla Insulin Dep Diabetes No Normal [facility] Comment on above: Performed By: #### U ACSLUIS FELIPE UMICRO #### [facility] [address] [address] [address] Kelly Montilla Interpretation Comment Normal [facility] Comment on above: Result Comment: Inte [...] Customer Services to discuss available options. The [place] [employer] recommends amniocentesis be offered to women age 35 and older. Performed By: #### U TED UMICRO #### [facility] [address] [address] [address] Kelly Montilla [age] Normal [facility] Comment on above: Performed By: #### U ACSLUIS FELIPE UMICRO #### [facility] [address] [address] [address] Kelly Monitlla Multiple Gestation No Normal [facility] Comment on above: Performed By: #### U ACSLUIS FELIPE UMICRO #### [facility] [address] [place] [address] [address] [place] Montilla [place] [address] [place] [address] [facility] Comment on above: Performed By: #### U ACSLUIS FELIPE UMICRO #### [facility] [address] [place] [address] [address] Kelly Montilla PDF . Normal [facility] Comment on above: Performed By: #### U ACSIND, UMICRO #### [facility] [address] [place] [address] Dr. Kelly Montilla Race [facility] Comment on above: Performed By: #### U TED, UMICRO #### [facility] [address] [place] [address] Dr. Kelly Montilla Test Results: Negative Normal [facility] Comment on above: Performed By: #### U TED, UMICRO #### [facility] [address] [place] [address] Dr. Kelly Montilla PAP ACOG PANEL 2: 21 to 29on 11-11-2022 . . Normal [facility] Comment on above: Performed By: #### 4 [id number] #### [facility] [address] [place] [address] Dr. Kelly Montilla Age Gdln ACOG Testing - [facility] Comment on above: Performed By: #### 4 [id number] #### [facility] [address] [place] [address] Dr. Kelly Montilla DIAGNOSIS: Comment [facility] Comment on above: Result Comment: NEGA TIVE FOR INTRAEPITHELIAL LESION OR MALIGNANCY. THIS SPECIMEN WAS RESCREENED PART OF OUR HOTEL CUSTODIAN PROGRAM. Performed By: #### 4 [id number] #### [facility] [address] [place] [address] Dr. Kelly Montilla Methodology: Comment [facility] Comment on above: Result Comment: This liquid based ThinPrep(R) pap test was screened with the use of an image guided system. Performed By: #### 4 [id number] #### [facility] [address] [place] [address] Dr. Kelly Montilla Note: Comment [facility] Comment on above: Result Comment: The Pap smear is a screening test designed to aid in the detection of premalignant and malignant conditions of the uterine cervix. It is not a diagnostic procedure and should not be used as the sole means of detecting cervical cancer. Both false-positive and false-negative reports do occur. . Performed By: #### 4 [id number] #### [facility] [address] [place] [address] Dr. Kelly Montilla Performed by: Comment Normal [facility] Comment on above: Result Comment: Hector Bowles, Truck Driving Instructor (ASCP) Performed By: #### 4 [id number] #### [facility] [address] [place] [address] Dr. Kelly Montilla QC reviewed by: Comment Normal [facility] Comment on above: Result Comment: Woo Lawrence, Supervisory Truck Driving Instructor (ASCP) Performed By: #### 4 [id number] #### [facility] [address] [place] [address] Dr. Kelly Montilla Reflex Criteria: Comment Normal [facility] Comment on above: Result Comment: The HPV DNA reflex criteria were not met with this specimen result therefore, no HPV testing was performed. . Performed By: #### 4 [id number] #### [facility] [address] [place] [address] Dr. Kelly Montilla Specimen adequacy: Comment Normal [facility] Comment on above: Result Comment: Sati sfactory for evaluation. Endocervical and/or squamous metaplastic cells (endocervical component) are present. Performed By: #### 4 [id number] #### [facility] [address] [place] [address] Dr. Kelly Montilla CHLAMYDIA/GONOCOCCUS DONTA (SW AB/URINE/PAPon 11-07-2022 Chlamydia trachomatis, DONTA Negative Normal Negative [facility] Comment on above: Performed By: #### V AGINT #### [facility] [address] [place] [address] Dr. Kelly Montilla Neisseria gonorrhoeae, DONTA Negative Normal Negative [facility] Comment on above: Performed By: #### V AGINT #### [facility] [address] [place] [address] Dr. Kelly Montilla VAGINITIS/VAGINOSIS DNA PROB Buster 11-05-2022 Patty species Negative Normal Negative [facility] Comment on above: Performed By: #### V AGINT #### [facility] [address] [place] [address] Dr. Kelly Montilla Gardnerella vaginalis Negative Normal Negative [facility] Comment on above: Performed By: #### V AGINT #### [facility] [address] [place] [address] Dr. Kelly Montilla Trichomonas vaginalis Negative Normal Negative [facility] Comment on above: Performed By: #### V AGINT #### [facility] [address] [place] [address] [address] Kelly Montilla HEP B SURFACE ANTIGEN SCREEN on 10-08-2022 HBsAg Screen Negative Normal Negative [facility] Comment on above: Performed By: #### H BSANS #### [facility] [address] [place] [address] [address] Kelly Montilla HEPATITIS C VIRUS AB W/ REFL EX QUANTon 10-08-2022 HCV AB <0.1 Normal 0.0-0.9 [facility] Comment on above: Performed By: #### U TED UMFANNYRO #### [facility] [address] [place] [address] Dr. Kelly Montilla Interpretation: Comment Normal [facility] Comment on above: Result Comment: Nega tive Not infected with HCV, unless recent infection is suspected or other evidence exists to indicate HCV infection. Performed By: #### U BRITTON JEANRO #### [facility] [address] [place] [address] Dr. Kelly Montilla HIV 1 AND 2 WITH REFLEXon HIV Screen 4th Generation wRfx Non-Reactive Normal Non Reactive [facility] Comment on above: Result Comment: HIV Negative HIV-1/HIV-2 antibodies and HIV-1 p24 antigen were NOT detected. There is no laboratory evidence of HIV infection. Performed By: #### H IV12 #### [facility] [address] [place] [address] Dr. Kelly Montilla RPR QUANTon 10-08-2022 Rapid Plasma Reagin, Quant Non-Reactive Normal NonRea<1:1 [facility] Comment on above: Result Comment: Plea se Note: This test does not meet current guidelines for screening and diagnosis of syphilis. This test is intended for following treatment response in patients being treated for syphilis infection. To screen for syphilis infection, a reflex cascade that includes both RPR and a treponema-specific assay should be utilized, such as Treponema pallidum (Syphilis) Screening [place] (167613) or Rapid Plasma Reagin (RPR) Test With Reflex to Quantitative RPR and Confirmatory Treponema pallidum Antibodies (687435). Performed By: #### U TOMÁS JEAN #### [facility] [address] [place] [address] Dr. Kelly Montilla RUBELLA AB IGGon 10-08-2022 Rubella Antibodies, IgG 4.88 index Normal Immune >0.99 [facility] Comment on above: Result Comment: Non- immune <0.90 Equivocal 0.90 - 0.99 Immune >0.99 Performed By: #### U TOMÁS JEAN #### [facility] [address] [place] [address] Dr. Kelly Montilla CBC AUTO DIFFon 10-07-2022 BASO # 0.0 103/ul Normal 0.0-0.1 [facility] Comment on above: Performed By: #### V AGINT #### [facility] [address] [place] [address] Dr. Kelly Montilla Basophils/100 WBC (Bld) 0.4 % Normal 0.2-2.0 [facility] Comment on above: Performed By: #### V AGINT #### [facility] [address] [place] [address] Dr. Kelly Montilla EO # 0.1 103/ul Normal 0.0-0.7 [facility] Comment on above: Performed By: #### V AGINT #### [facility] [address] [place] [address] Dr. Kelly Montilla Eosinophils/100 WBC (Bld) 1.6 % Normal 0.9-7.0 [facility] Comment on above: Performed By: #### V AGINT #### [facility] [address] [place] [address] Dr. Kelly Montilla Erythrocyte distribution width (RBC) [Ratio] 12.4 % Normal 11.0-15.0 [facility] Comment on above: Performed By: #### V AGINT #### [facility] [address] [place] [address] Dr. Kelly Montilla Hematocrit (Bld) [Volume fraction] 35.4 % Critically low 36.0-48.0 [facility] Comment on above: Performed By: #### V AGINT #### [facility] [address] [place] [address] Dr. Kelly Montilla Hemoglobin (Bld) [Mass/Vol] 12.4 g/dL Normal 12.0-16.0 [facility] Comment on above: Performed By: #### V AGINT #### [facility] [address] [place] [address] Dr. Kelly Mnotilla IG # 0.02 10e3/ul Normal 0.00-0.03 [facility] Comment on above: Performed By: #### V AGINT #### [facility] [address] [place] [address] Dr. Kelly Montilla IG % 0.3 % Normal 0.0-0.5 [facility] Comment on above: Performed By: #### V AGINT #### [facility] [address] [place] [address] Dr. Kelly Montilla LYMPH # 1.8 103/ul Normal 1.2-3.8 [facility] Comment on above: Performed By: #### V AGINT #### [facility] [address] [place] [address] Dr. Kelly Montilla Lymphocytes/100 WBC (Bld) 23.6 % Normal 20.5-60.0 [facility] Comment on above: Performed By: #### V AGINT #### [facility] [address] [place] [address] Dr. Kelly Montilla MANUAL DIFF REQ NO Normal [facility] Comment on above: Performed By: #### V AGINT #### [facility] [address] [place] [address] Dr. Kelly Montilla MCH (RBC) [Entitic mass] 31.6 pg Normal 26.7-34.0 [facility] Comment on above: Performed By: #### V AGINT #### [facility] [address] [place] [address] [address] Kelly Montilla MCHC (RBC) [Mass/Vol] 35.0 g/dL Normal 29.9-35.2 [facility] Comment on above: Performed By: #### V AGINT #### [facility] [address] [place] [address] Dr. Kelly Montilla MCV (RBC) [Entitic vol] 90.3 fL Normal 81.0-99.0 [facility] Comment on above: Performed By: #### V AGINT #### [facility] [address] [place] [address] Dr. Kelly Montilla MONO # 0.4 103/ul Normal 0.3-0.8 [facility] Comment on above: Performed By: #### V AGINT #### [facility] [address] [place] [address] Dr. Kelly Montilla Monocytes/100 WBC (Bld) 5.4 % Normal 1.7-12.0 [facility] Comment on above: Performed By: #### V AGINT #### [facility] [address] [place] [address] Dr. Kelly Montilla NEUT # 5.2 103/ul Normal 1.4-6.5 [facility] Comment on above: Performed By: #### V AGINT #### [facility] [address] [place] [address] Dr. Kelly Montilla Neutrophils/100 WBC (Bld) 68.7 % Normal 43.0-75.0 [facility] Comment on above: Performed By: #### V AGINT #### [facility] [address] [place] [address] Dr. Kelly Montilla Platelet mean volume (Bld) [Entitic vol] 9.3 fL Critically low 9.5-13.5 [facility] Comment on above: Performed By: #### V AGINT #### [facility] [address] [place] [address] Dr. Kelly Montilla PLT 217 103/ul Normal 150-450 [facility] Comment on above: Performed By: #### V AGINT #### [facility] [address] [place] [address] Dr. Kelly Montilla RBC 3.92 106/ul Critically low 4.20-5.40 [facility] Comment on above: Performed By: #### V AGINT #### [facility] [address] [place] [address] Dr. Kelly Montilla WBC 7.6 103/ul Normal 4.0-11.0 [facility] Comment on above: Performed By: #### V AGINT #### [facility] [address] [place] [address] Dr. Kelly Montilla CULTURE URINEon 10-07-2022 CULTURE URINE Culture Observations : LIGHT GROWTH OF MIXED GENITAL ALBAN. NO POTENTIAL PATHOGENS SEEN. Normal [facility] Comment on above: Performed By: #### U RCX #### [facility] [address] [place] [address] Dr. Kelly Montilla GLYCOHEMOGLOBIN A1Con 2022 ADA RECOMMENDATION SEE BELOW Normal [facility] Comment on above: Result Comment: ADA RECOMMENDED LIMIT 4.0 - 6.0 ADA THERAPEUTIC TARGET < 7.0 ACTION SUGGESTED > 7.0 Performed By: #### U ACSLUIS FELIPE UMICRO #### [facility] [address] [place] [address] Dr. Kelly Montilla Glucose [Mass/Vol] 97 mg/dL Normal [facility] Comment on above: Performed By: #### U ACSLUIS FELIPE, UMICRO #### [facility] [address] [place] [address] Dr. Kelly Montilla HbA1c (Bld) [Mass fraction] 5.0 % Normal 4.5-6.2 [facility] Comment on above: Performed By: #### U ACSLUIS FELIPE, UMICRO #### [facility] [address] [place] [address] Dr. Kelly RENTERIA BOX TEST PT SEND OUTo n 10-07-2022 SENT TO REF LAB 10/07/2022 Normal [facility] Comment on above: Performed By: #### N BOX #### [facility] [address] [place] [address] Dr. Kelly Montilla TYPE AND SCREENon 10-07-2022 TYPE AND SCREEN Negative Normal [facility] Comment on above: Performed By: #### V AGINT #### [facility] [address] [place], [place] [address] Dr. Kelly Montilla US PREG TVon 09-16-2022 [...] MICHELLE HAMMER Date: 2022-09-16 09:19 Normal [facility] ED Note-Physicianon 06-12-20 20 ED Note-Physician Basic Information Time Seen: Ilana Ornelas DO 06/10/2020 13:46 Chief Complaint Intermittent SOB and palpitations ongoing for a month. Denies chest pain. Seen at [facility] x3 for same problem. Was told 2 days ago she may have pneumonia. Taking zpack and inhalaher as prescribed with no relief. Anxious. History of Present Illness Pt is a 25 year old female who presents to the ED for chest pain and anxiety. Upon interview, she exhibits excessive worry about multiple different systems. She states she was just at [place] ED where she had a chest x-ray [...] normal psychiatric thoughts. Medical Decision Making 1535: [facility] records requested at time of Pt arrival. Did not receive until 1510. CXR with no pneumonia. Will also add at D-dimer to her [facility] labs. ED tests discussed with Pt. Recommend [...] to 3 days [address] [place] [address]- [phone] Business (1) Additional Instructions: Return to ED if symptoms worsen. Cut back on Caffeine. You will be contacted to get a 48 hour heart monitor set up. Call your Console Attendant to discuss your frequent urination. Patient Education [...] 15:17:00) Lymph Auto: 24.5 % (06/10/20 15:17:00) [place] Auto: 6.1 % (06/10/20 15:17:00) Eos Auto: 1.7 % (06/10/20 15:17:00) Basophil Auto: 0.3 % (06/10/20 15:17:00) Neutro Absolute: 4.5 E9/L (06/10/20 15:17:00) Lymph Absolute: 1.6 E9/L (06/10/20 15:17:00) [place] Absolute: 0.4 E9/L (06/10/20 15:17:00) Eos Absolute: [...] OR DEPRESSION BORDERLINE ECG Signed By: Ilana Onrelas DO 06/10/2020 14:00:35 Normal [facility] Comment on above: Result Comment: Elec tronically Signed By: Maricarmen Reyes\.br\Date and Time Signed: 06/10/20 14:20 EDT\.br\Electronically Co-Signed By: Ilana Ornelas DO\.br\Date and Time Co-Signed: 06/12/20 12:11 EDT Coding Summary.on 06-11-2020 Coding Summary. CODING DATE: 06/11/[address] [facility] STATUS: Home (Routine DC) PAYOR: Medicaid EAPG [...] Yee Date Saved: 06/11/2020 07:43 am Normal [facility] Auto Diffon 06-10-2020 Basophils/100 WBC (Bld) 0.3 % Normal 0.0-2.0 [facility] Comment on above: Order Comment: Order Added by Discern Expert. Performed By: #### 2 [id number], [id number], [id number] #### [facility] [address] [place] [address] Basophils/Leukocytes Auto (Bld) [Pure # fraction] 0.0 E9/L Normal 0.0-0.2 [facility] Comment on above: Order Comment: Order Added by Discern Expert. Performed By: #### 2 [id number], [id number], [id number], [id number], [id number] #### [facility] [address] [place] [address] Eosinophils/100 WBC (Bld) 1.7 % Normal 0.0-8.0 [facility] Comment on above: Order Comment: Order Added by Discern Expert. Performed By: #### 2 [id number], [id number], [id number], [id number], [id number] #### [facility] [address] [place] [address] Eosinophils/Leukocyt es Auto (Bld) [Pure # fraction] 0.1 E9/L Normal 0.0-0.5 [facility] Comment on above: Order Comment: Order Added by Discern Expert. Performed By: #### 2 [id number], [id number], [id number], [id number], [id number] #### [facility] [address] [place] [address] Lymphocytes/100 WBC (Bld) 24.5 % Normal 14.0-50.0 [facility] Comment on above: Order Comment: Order Added by Discern Expert. Performed By: #### 2 [id number], [id number], [id number], [id number], [id number] #### [facility] [address] [place] [address] Lymphocytes/Leukocyt es Auto (Bld) [Pure # fraction] 1.6 E9/L Normal 1.0-4.0 [facility] Comment on above: Order Comment: Order Added by Discern Expert. Performed By: #### 2 [id number], [id number], [id number], [id number], [id number] #### [facility] [address] [place] [address] Monocytes/100 WBC (Bld) 6.1 % Normal 4.0-14.0 [facility] Comment on above: Order Comment: Order Added by Discern Expert. Performed By: #### 2 [id number], [id number], [id number], [id number], [id number] #### [facility] [address] [place] [address] Monocytes/Leukocytes Auto (Bld) [Pure # fraction] 0.4 E9/L Normal 0.2-1.0 [facility] Comment on above: Order Comment: Order Added by Discern Expert. Performed By: #### 2 [id number], [id number], 5578661, [id number], [id number] #### [facility] [address] [place] [address] Neutrophils/100 WBC (Bld) 67.4 % Normal 36.0-75.0 [facility] Comment on above: Order Comment: Order Added by Discern Expert. Performed By: #### 2 [id number], [id number], [id number], [id number], [id number] #### [facility] [address] [place] [address] Neutrophils/Leukocyt es Auto (Bld) [Pure # fraction] 4.5 E9/L Normal 2.0-7.5 [facility] Comment on above: Order Comment: Order Added by Kamla Expert. Performed By: #### 2 [id number], [id number], [id number], [id number], [id number] #### [facility] [address] [place] [address] CBC w/ Auto Diffon 0 Erythrocyte distribution width (RBC) [Ratio] 12.8 % Normal 10.9-14.2 [facility] Comment on above: Performed By: #### 2 [id number], [id number], [id number], [id number], [id number] #### [facility] [facility] [address] [place] [address] Hematocrit (Bld) [Volume fraction] 40.9 % Normal 34.0-46.0 [facility] Comment on above: Performed By: #### 2 678228, 8395219, 4986850, 64598817, 77508964 #### [facility] [address] [place] [address] Hemoglobin (Bld) [Mass/Vol] 14.1 g/dL Normal 12.0-16.0 [facility] Comment on above: Performed By: #### 2 638451, 2141492, 5411408, 49414034, 43845252 #### [facility] [address] [place] [address] MCH (RBC) [Entitic mass] 32.6 pg Normal 27.0-34.0 [facility] Comment on above: Performed By: #### 2 993520, 3349864, 6040946, 63934825, 11028162 #### [facility] [address] [place] [address] MCHC (RBC) [Mass/Vol] 34.5 g/dL Normal 31.4-36.0 [facility] Comment on above: Performed By: #### 2 648342, 7567438, 0096338, 62774626, 53850404 #### [facility] [address] [place] [address] MCV (RBC) [Entitic vol] 94.5 fL Normal 80.0-100.0 [facility] Comment on above: Performed By: #### 2 913474, 8976767, 9884782, 36231818, 47951250 #### [facility] [address] [place] [address] Platelet mean volume (Bld) [Entitic vol] 7.2 fL Normal 6.4-10.8 [facility] Comment on above: Performed By: #### 2 679567, 5760855, 7313772, 43378676, 56955142 #### [facility] [address] [place] [address] Platelets (Bld) [#/Vol] 220.0 E9/L Normal 150.0-500.0 [facility] Comment on above: Performed By: #### 2 393417, 1353694, 1544658, 69085636, 32352768 #### [facility] [address] [place] [address] RBC (Bld) [#/Vol] 4.3 E12/L Normal 4.3-5.9 [facility] Comment on above: Performed By: #### 2 708476, 9722167, 0460373, 15874390, 52609907 #### [facility] [address] [place] [address] WBC corrected for nucl RBC Auto (Bld) [#/Vol] 6.6 E9/L Normal 4.0-11.0 [facility] Comment on above: Performed By: #### 2 340192, 6449777, 5986936, 84784795, 06333633 #### [facility] [address] [place] [address] CMPon 06-10-2020 Albumin [Mass/Vol] 1.3 g/dL Normal 1.1-2.2 [facility] Comment on above: Performed By: #### 2 086873, 0960536, 4374358, 03468092, 06793033 #### [facility] [address] [place] [address] Albumin [Mass/Vol] 4.0 g/dL Normal 3.3-5.0 [facility] Comment on above: Performed By: #### 2 857914, 2097975, 9166049, 23095558, 15423590 #### [facility] [address] [place] [address] ALP [Catalytic activity/Vol] 34 Int._Unit/L Normal 21-98 [facility] Comment on above: Performed By: #### 2 004430, 3025610, 6999976, 40544219, 41019736 #### [facility] [address] [place] [address] ALT No additional P-5'-P [Catalytic activity/Vol] 11 Int._Unit/L Normal 6-46 [facility] Comment on above: Performed By: #### 2 238794, 7221298, 2183060, 34799168, 63793713 #### [facility] [address] [place] [address] AST [Catalytic activity/Vol] 12 Int._Unit/L Normal 5-43 [facility] Comment on above: Performed By: #### 2 248504, 8644076, 5281152, 62499225, 92985946 #### [facility] [address] [place] [address] Bilirubin [Mass/Vol] 0.8 mg/dL Normal 0.0-1.1 [facility] Comment on above: Performed By: #### 2 039577, 6691563, 3785950, 10287712, 90650608 #### [facility] [address] [place] [address] Creatinine [Mass/Vol] 0.6 mg/dL Normal 0.5-1.3 [facility] Comment on above: Performed By: #### 2 061540, 2181006, 6724320, 28680872, 96028856 #### [facility] [address] [place] [address] Globulin (S) [Mass/Vol] 3.0 g/dL Normal 1.4-4.0 [facility] Comment on above: Performed By: #### 2 926704, 0917889, 8931494, 58929961, 15549031 #### [facility] [address] [place] [address] Protein [Mass/Vol] 7.0 g/dL Normal 6.0-7.8 [facility] Comment on above: Performed By: #### 2 566464, 6568364, 3752915, 08800768, 60810783 #### [facility] [address] [place] [address] Urea nitrogen [Mass/Vol] 9 mg/dL Normal 5-21 [facility] Comment on above: Performed By: #### 2 924279, 1590712, 7633287, 95225068, 73541827 #### [facility] [address] [place] [address] Urea nitrogen/Creatinine [Mass ratio] 15 No Units Normal 10-20 [facility] Comment on above: Performed By: #### 2 742095, 0250155, 5895350, 54299125, 46125750 #### [facility] [address] [place] [address] Anion gap [Moles/Vol] 13 mmol/L Normal 6-16 [facility] Comment on above: Performed By: #### 2 470498, 7431780, 2697200, 95414828, 22347549 #### [facility] [address] [place] [address] Calcium [Mass/Vol] 9.2 mg/dL Normal 8.9-11.1 [facility] Comment on above: Performed By: #### 2 870954, 9536948, 9748679, 46072155, 75886950 #### [facility] [address] [place] [address] Chloride [Moles/Vol] 104 mmol/L Normal 101-111 [facility] Comment on above: Performed By: #### 2 203207, 0617731, 7437618, 55128357, 81196356 #### [facility] [address] [place] [address] CO2 [Moles/Vol] 25 mmol/L Normal 21-31 [facility] Comment on above: Performed By: #### 2 524296, 5017421, 0751651, 37646608, 00884068 #### [facility] [address] [place] [address] Glucose [Mass/Vol] 84 mg/dL Normal 55-199 [facility] Comment on above: Result Comment: If t his glucose result represents a fasting glucose, interpretation should refer to the following reference range: 55-99 mg/dL Performed By: #### 2 788706, 6328484, 2251584, 54062882, 61763118 #### [facility] [address] [place] [address] Potassium [Moles/Vol] 4.1 mmol/L Normal 3.5-5.3 [facility] Comment on above: Performed By: #### 2 073859, 1936141, 2672657, 85073705, 08797187 #### [facility] [address] [place] [address] Sodium [Moles/Vol] 138 mmol/L Normal 135-145 [facility] Comment on above: Performed By: #### 2 686804, 7008921, 1779291, 19907582, 95481509 #### [facility] [address] [place] [address] Consent for Treatmenton Consent for Treatment [id number] 0CD:127 Normal [facility] D-Dimeron 06-10-2020 Fibrin D-dimer FEU (PPP) [Mass/Vol] <215 Low 215-500 [facility] Comment on above: Result Comment: This [...] infections Liver cirrhosis Performed By: #### 2 361106 #### [facility] [address] [place] [address] Discharge Instructionson Discharge Instructions [id number] 0CD:127 Normal [facility] ED Clinical Summaryon 2019 ED Clinical Summary [address] [address] ED Clinical Summary Person Information Name: ELOINA KU Riya/[facility] Age: 25 Years : 1995 Sex: Female Language: Spanish PCP: JAYSHREE LEIJA CNP Marital Status: Single Phone: [phone] Visit Id: Visit Reason: Palpitations; Anxiety; SOB- SEEN IN [place] TOLD SHE HAS PNUEMONIA Speciality: Acuity: 3 [...] 06/10/2020 16:44:17 06/10/2020 16:44:17 06/10/2020 16:44:17 ADDRESS: [facility] [address] [place] [address] [facility] DOC NOTES: MEDICAL INFORMATION: Prescriptions Given: Medications to [...] With: Address: When: JAYSHREE LEIJA [address] [facility], [place] [address] [phone] Business (1) Within 2 to 3 days Comments: Return to ED if symptoms worsen. Cut back on Caffeine. You will be contacted to get a 48 hour heart monitor set up. Call your Console Attendant to discuss your frequent urination. DIAGNOSIS: 1:Palpitations Normal [facility] ED Patient Education Noteon 06-10-2020 ED [...] Document Reviewed: 11/16/2012 ExitCare? Patient Information ?2015 [employer]. This information is not intended to replace advice given to you by your health care provider. Make sure you discuss any questions you have with your health care provider. Normal [facility] ED Patient Summaryon 020 ED Patient Summary [place] [id number] Patient Discharge Instructions Person Information Name: ELOINA KU Age: 25 Years Arrival Date: 06/10/2020 13:38:02 Discharge Diagnosis: 1:Palpitations Primary Care Physician: JAYSHREE LEIJA CNP Provider Information Primary Provider: Ilana Ornelas DO [employer]:None The exam and treatment you received in the Emergency Department were for an urgent problem and are not intended as complete care. It is important that you follow up with a doctor, nurse practitioner, or physician?s digital marketing assistant for ongoing care. If your symptoms become worse or you do not improve as expected and you are unable to reach your usual health care provider, you should return to the Emergency Department. We are available 24 hours a day. ELOINA KU has been given the following list of patient education materials, prescriptions and follow-up instructions: Follow-up Instructions: With: Address: When: JAYSHREE LEIJA [address] [facility] [phone] Business (1) Within 2 to 3 days Comments: Return to ED if symptoms worsen. Cut back on Caffeine. You will be contacted to get a 48 hour heart monitor set up. Call your Console Attendant to discuss your frequent urination. In the event that this physician does not participate in your insurance network, please consult with your insurance company to find a nearby participating provider. Patient Education Materials: Palpitations A MESSAGE TO ALL PATIENTS REGARDING OPIOIDS PRESCRIPTION OPIOIDS: WHAT YOU NEED TO KNOW Prescription opioids can be used to help relieve qweeatin-ur-phwwzj pain and are often prescribed following a [...] be struggling with addiction, tell your health manager intensive care unit and ask for guidance or call [facility]?S National Helpline at 0-788-754-ROZP. s Source: [place] Department of Health and Human Services/Center for Disease Control & Prevention [facility] Medications Given: Medication Dose Route [...] Information: SHAWNEE [place] Thank you for choosing [facility] Patient Education Materials: Palpitations A [...] Document Reviewed: 11/16/2012 ExitCare? Patient Information ?2015 [employer]. This information is not intended to replace advice given to you by your health care provider. Make sure you discuss any questions you have with your health care provider. ELMIRA oHrton BRITTANY NICOLE , have received the following patient education materials/instructions and have verbalized understanding: Patient Education Materials: Palpitations Follow-up Instructions: With: Address: When: JAYSHREE LEIJA [address] [place] [phone] Business (1) Within 2 to 3 days Comments: Return to ED if symptoms worsen. Cut back on Caffeine. You will be contacted to get a 48 hour heart monitor set up. Call your Console Attendant to discuss your frequent urination. Patient Signature Date Clinician/Nurse Signature ___ Date 06/10/2020 16:44:19 Normal [facility] Troponin 0 Hr.on 06-10-2020 Troponin I.cardiac [Mass/Vol] ng/mL Low 10.10-27.10 [facility] Comment on above: Result Comment: The 95% CI (Confidence Interval) PPV (Positive Predictive Value) for myocardial infarction in females is 38 pg/mL, in males 51 pg/mL. The results should be used in conjunction with clinical conditions of myocardial infarction. (Access High Sensitivity Troponin I Instructions For Use, [place], May 2018) Performed By: #### 2 914499, 8709524, 0817382, 36370079, 68163674 #### [facility] [address] [place] [address] U BetaHcg Qualon 06-10-2020 HCG.beta subunit (U) [Moles/Vol] Negative Normal [facility] Comment on above: Performed By: #### 2 8392504, 16606306 #### [facility] [address] [place] [address] UA With Cult Reflexon 2019 Bilirubin Ql (U) Negative Normal Negative [facility] Comment on above: Performed By: #### 2 5618053, 69241237 #### [facility] [address] [place] [address] Clarity (U) CLEAR Normal Clear [facility] Comment on above: Performed By: #### 2 0134827, 01739129 #### [facility] [address] [place] [address] Color (U) YELLOW Normal Yellow [facility] Comment on above: Performed By: #### 2 4630026, 08971063 #### [facility] [address] [place] [address] Epithelial cells.squamous LM.HPF (Urine sed) [#/Area] 0-2 Normal 0-2 [facility] Comment on above: Performed By: #### 2 7427833, 84297437 #### [facility] [address] [place] [address] Glucose Test strip (U) [Mass/Vol] Negative Normal Negative [facility] Comment on above: Performed By: #### 2 7743720, 11379554 #### [facility] [address] [place] [address] Hemoglobin Ql (U) Negative Normal Negative [facility] Comment on above: Performed By: #### 2 4780949, 30411875 #### [facility] [address] [place] [address] Ketones (U) [Mass/Vol] Negative Normal Negative [facility] Comment on above: Performed By: #### 2 4817281, 47061515 #### [facility] [address] [place] [address] Boron.plasma/Lithi um.RBC (Bld) [Mass ratio] 0-3 Normal 0-3 [facility] Comment on above: Performed By: #### 2 5362877, 57324459 #### [facility] [address] [place] [address] Mucus Ql (Urine sed) TRACE Normal [facility] Comment on above: Performed By: #### 2 0691332, 43126634 #### [facility] [address] [place] [address] Nitrite Ql (U) Negative Normal Negative [facility] Comment on above: Performed By: #### 2 0562951, 11657527 #### [facility] [address] [place] [address] pH (U) 7.5 [pH] 5.0-9.0 [facility] Comment on above: Performed By: #### 2 7511868, 41097028 #### [facility] [address] [place] [address] Protein (U) [Mass/Vol] Negative Normal Negative [facility] Comment on above: Performed By: #### 2 7946896, 61953080 #### [facility] [address] [place] [address] Specific gravity (U) [Rel density] 1.010 1.005-1.030 [facility] Comment on above: Performed By: #### 2 2612960, 53062395 #### [facility] [address] [place] [address] UA Spec Desc Random Urine Normal [facility] Comment on above: Performed By: #### 2 4795840, 26005126 #### [facility] [address] [place] [address] Urobilinogen Qn (U) 0.2 {Maria C'U}/dL Normal 0.0-1.0 [facility] Comment on above: Performed By: #### 2 9625176, 63461956 #### [facility] [address] [place] [address] WBC Auto Ql (U) Negative Normal Negative [facility] Comment on above: Performed By: #### 2 0890530, 60620698 #### [facility] [address] [place] [address] WBC LM.HPF (Urine sed) [#/Area] 0-5 Normal 0-5 [facility] Comment on above: Performed By: #### 2 2390545, 46371570 #### [facility] [address] [place] [address] XR Chest 2 Viewson 0 XR Chest [...] DO Transcribed by: KARLEY Technologist: LAWRENCE Hdz [facility] eGFRon 06-10-2020 GFR/1.73 sq M predicted among blacks MDRD (S/P/Bld) [Vol rate/Area] mL/min/{1.73_m2} Normal >=59 [facility] Comment on above: Order Comment: Order added by Discern Expert. Result Comment: eGFR is race adjusted. AA=. Performed By: #### 2 695533, 3698341, 6396660, 36410564, 92482970 #### [facility] [address] [place] [address] GFR/1.73 sq M predicted among non-blacks MDRD (S/P/Bld) [Vol rate/Area] mL/min/{1.73_m2} Normal >=59 [facility] Comment on above: Order Comment: Order added by Discern Expert. Result Comment: [employer] shyam kidney disease could be indicated at eGFR's of less than 60 mL/min/1.73m2. Kidney failure is indicated at less than 15 mL/min/1.73m2. Performed By: #### 2 007640, 0711967, 6158289, 76547762, 97752603 #### [facility] [address] [place] [address] Vital Signs Date Time Vital Sign Value Performing Clinician Facility 07-15-2024 14:52-0400 Body mass index (BMI) [Ratio] 25.23 kg/m2 Jamil Roasrio DO Work Phone: [facility] 07-15-2024 14:52-0400 Body weight 66.68 kg Jamil Rosario DO Work Phone: [facility] 07-15-2024 14:52-0400 Diastolic blood pressure 68 mm[Hg] Jamil Rosario DO Work Phone: [facility] 07-15-2024 14:52-0400 Systolic blood pressure 110 mm[Hg] Jamil Rosario DO Work Phone: [facility] 12-11-2022 00:05-0500 Body weight 71.[address] JAMIL PONCE . [facility] Comment on above: Performed By: #### TOMÁS YODER #### [facility] [address] [place] [address] Dr. Kelly Montilla Encounters Encounter Date Encounter Type Care Provider Facility Start: 07-16-2024 End: 07-16-2024 ambulatory PHYSICIAN NO FAMILY Facility:[facility] Start: 07-16-2024 End: 07-16-2024 Departed Referred PHYSICIAN NO [facility] Start: 07-15-2024 End: 07-15-2024 Patient encounter procedure Jamil Rosario DO Work Phone: [facility] Comment on above: Menorrhagia with reg ular cycle Start: 07-15-2024 End: 07-15-2024 ambulatory JAMIL ROSARIO Not Available Start: 07-11-2024 End: 07-11-2024 Clinisync Result Encounter Jamil Rosario DO Work Phone: [facility] External Department Unsolicited Start: 07-11-2024 End: 07-11-2024 Clinisync Result Encounter Jamil Rosario DO Work Phone: [facility] External Department Unsolicited Start: 06-24-2024 End: 06-24-2024 ambulatory JAMIL ROSARIO Not Available Start: 01-03-2024 End: 01-03-2024 ambulatory JAMIL PONCE Not Available Start: 11-01-2023 End: 11-01-2023 ambulatory JAMIL PONCE Not Available Start: 02-11-2023 End: 02-13-[address] JAMIL PONCE . Facility:[facility] Start: 02-08-2023 End: 02-08-[address] JAMIL PONCE . Facility:[facility] Start: 01-27-2023 End: 01-28-[address] JAMIL PONCE . Facility:[facility] Start: 12-24-2022 End: 12-24-2022 ambulatory JAYSHREE LEIJA Facility:[facility] Start: 12-23-2022 End: 12-24-2022 ambulatory VAISHNAVI DOMINGUEZ . Facility:[facility] Start: 12-13-2022 End: 12-14-[address] JAMIL PONCE . Facility:[facility] Start: 12-09-2022 End: 12-10-[address] JAMIL PONCE . Facility:[facility] Start: 11-03-2022 End: 11-03-2022 ambulatory JAYSHREE LEIJA Facility:[facility] Start: 10-07-2022 End: 10-08-[address] JAMIL PONCE . Facility:[facility] Start: 09-16-2022 End: 09-17-[address] JAMIL PONCE . Facility: Procedures Date Procedure Procedure Detail Performing Clinician Start: 07-15-2024 Urine test visual color cmprsn meths Jamil Rosario DO Work Phone: Start: 07-11-2024 ALL CBC WITH AUTO DIFF Jamil Rosario DO Work Phone: Start: 01-03-2024 Microscopic observat ion [Identifier] in Cervix by Cyto stain Jamil Rosario DO Work Phone: Start: 11-03-2022 Microscopic observat ion [Identifier] in Cervix by Cyto stain Jamil Rosario DO Work Phone: Plan of Treatment Date Care Activity Detail Author Start: 01-02-2027 Screening for malign ant neoplasm of cervix [facility] Start: 11-03-2025 Screening for malign ant neoplasm of cervix [facility] Start: 01-08-2025 End: 01-08-2025 Patient encounter procedure 01/08/2025 11:00 AM EDT Office Visit [facility] [address] [place] [id number] Jamil Ponce, DO [address] [place], [place] [id number] [facility] Start: 07-22-2024 End: 07-22-2024 Patient encounter procedure 07/22/2024 2:40 PM EDT Consult [facility] [address] [place] [address] Jamil Ponce, DO [address] [place], [place] [id number] [facility] Start: 07-15-2024 End: 07-15-2024 Patient encounter procedure 07/15/2024 2:30 PM EDT Procedure Visit [facility] [address] [place] [address] Jamil Ponce, DO [address] [place], [place] [id number] [facility] Start: 06-02-2024 Influenza vaccination Influenza Vacc ine (#1) [facility] Start: 02-15-2024 Screening for malign ant neoplasm of cervix HPV/Cotest [facility] Start: 02-21-2023 ambulatory Ambulatory Facility:[facility] 1 Tissue exam Tissue exam Path ology and Cytology Routine Menorrhagia with regular cycle Ordered: 07/15/2024 [facility] Work Phone: Comment on above: Ordered: 07/15/2024 Payers Date Payer Category Payer Medicaid [employer] [place] [id number] 2023-Present [address] [place] [address] [id number] [address] Health Insurance [facility] MEDICAID [id number] 1994 Unknown [id number] 2.16.840.1.064467.3.579.2. 593 1994 Unknown [id number] 2.16.840.1.885881.3.579.2. 593 1994 Unknown [id number] 2.16.840.1.576996.3.579.2. 593 1994 Unknown [id number] 2.16.840.1.808293.3.579.2. 593 1994 Unknown [id number] 2.16.840.1.723061.3.579.2. 593 1994 Unknown [id number] 2.16.840.1.164334.3.579.2. 593 1994 Unknown [id number] 2.16.840.1.318670.3.579.2. 593 1994 Unknown [id number] 2.16.840.1.067664.3.579.2. 593 1994 Unknown [id number] 2.16.840.1.352751.3.579.2. 593 1994 Unknown [id number] 2.16.840.1.549390.3.579.2. 593 1994 Unknown [id number] 2.16.840.1.343496.3.579.2. 593 1994 Unknown [id number] 2.16.840.1.339721.3.579.2. 9 1994 Unknown [id number] 2.16.840.1.378639.3.579.2. 1259 1994 Unknown [id number] 2.16.840.1.890518.3.579.2. 1258 1994 Unknown [id number] 2..840.1.926255.3.579.2. 1259 1959 Self-pay 1960 Unknown [id number] 1959 Unknown [id number] Unknown [id number] 2..840.1.630529.3.579.2. 593 Social History Date Type Detail Facility Start: 03-11-2023 Tobacco smoking stat [facility] Smokes tobacco daily [facility] History of tobacco use Cigarette Smoker [facility] Start: 06-24-2024 End: 07-15-2024 Alcoholic beverage intake Lifetime non-drinker (finding) [facility] Start: 01-03-2024 History of Social function [facility] Start: 01-03-2024 Tobacco use panel [facility] Start: 03-11-2023 Alcohol Comment Caffeine: 2-3 cups/d ay [facility] Start: 1995 Sex assigned at Not on file [facility] Start: 1995 Sex Assigned At Female F [facility] History of Present illness Narrative 07-15-2024 Adelita Warren LPN - 07/15/2024 2:30 PM EDT Note Date & Type Note Facility 07-15-2024 History of Presen t illness Narrative Reason for Appointment: Patient ID: Eloina Ku is a 29 y.o. female who presents for Endometrial biopsy Patient presents today for Consult appointment. MEDICATIONS Current Outpatient Medications Medication Instructions etonogestrel-eluting 68 mg contraceptive implant 1 each, Implant, Once Vit-Fe Fumarate-FA ( 19) chewable tablet TAKE 1 TABLET BY MOUTH EVERY DAY FOR 30 DAYS Sublocade 100 MG/0.5ML injection ALLERGIES Allergies Allergen Reactions Amoxicillin Hives Penicillins Hives PROBLEMS Active Ambulatory Problems Diagnosis Date Noted Abnormal uterine bleeding 03/31/2023 Ankle pain 06/11/2010 Back pain 03/31/2023 Breast tenderness 03/31/2023 Carpal tunnel syndrome 03/31/2023 Current smoker 03/31/2023 Disorder of urinary tract 03/31/2023 Eczema 06/11/2010 Excessive and frequent menstruation 03/31/2023 Fatigue 03/31/2023 Mild depression (CMS/HCC) 03/31/2023 Opioid abuse (CMS/HCC) 03/31/2023 Pelvic pressure in female 03/31/2023 Missed period 03/31/2023 Rh D negative blood type 03/31/2023 Urinary frequency 03/31/2023 Resolved Ambulatory Problems Diagnosis Date Noted No Resolved Ambulatory Problems Past Medical History: Diagnosis Date Abnormal uterine bleeding (AUB) BMI 28.0-28.9,adult Encounter for well woman exam Female pelvic pain Menorrhagia with regular cycle Missed menses Postcoital bleeding Urinary disorder Yeast infection of the vagina HISTORY PAST MEDICAL HISTORY SOCIAL HISTORY Past Medical History: Diagnosis Date Abnormal uterine bleeding (AUB) Back pain BMI 28.0-28.9,adult Breast tenderness Encounter for well woman exam Fatigue Female pelvic pain Menorrhagia with regular cycle Mild depression (CMS/HCC) Missed menses Opioid abuse (CMS/HCC) Postcoital bleeding Urinary disorder Urinary frequency Yeast infection of the vagina Social History Tobacco Use Smoking status: Every Day Current packs/day: 0.50 Types: Cigarettes Smokeless tobacco: Not on file Substance Use Topics Alcohol use: Never Comment: Caffeine: 2-3 cups/day Drug use: Never Comment: Positive opiod use FAMILY HISTORY Family History Problem Relation Name Age of Onset Mental illness Mother Stomach cancer Father Colon cancer Father Cancer Paternal Grandmother SURGICAL HISTORY Past Surgical History: Procedure Laterality Date APPENDECTOMY 11/2017 CARPAL TUNNEL RELEASE Left 03/28/2018 Dr. Alonso LAPAROSCOPY DIAGNOSTIC / BIOPSY / ASPIRATION / LYSIS 10/2020 VAGINAL DELIVERY REVIEW OF SYSTEMS Review of Systems: Review of Systems All other systems reviewed and are negative. OBJECTIVE Objective: Physical Exam Constitutional: Appearance: Normal appearance. She is well-developed. Genitourinary: Vulva normal. Cardiovascular: Rate and Rhythm: Normal rate and regular rhythm. Pulmonary: Effort: Pulmonary effort is normal. Breath sounds: Normal breath sounds. Abdominal: General: Bowel sounds are normal. There is no distension. Palpations: Abdomen is soft. Tenderness: There is no abdominal tenderness. There is no guarding or rebound. Musculoskeletal: General: No swelling. Normal range of motion. Right lower leg: No edema. Left lower leg: No edema. Neurological: Mental Status: She is alert and oriented to person, place, and time. Skin: General: Skin is warm and dry. Psychiatric: Mood and Affect: Mood normal. Behavior: Behavior normal. Vitals and nursing note reviewed. Exam conducted with a skein yarn dyer helper present. Vitals: Estimated body mass index is 25.23 kg/m as calculated from the following: Height as of 06/21/23: 5' 4 . Weight as of this encounter: 147 lb. BP: 110/68 No LMP recorded. Patient has had an implant. ASSESSMENT & PLAN ICD-10-CM 1. Menorrhagia with regular cycle N92.0 POCT , urine manually resulted Tissue exam EMBX: Patient was placed in dorsal lithotomy position with feet in stirrups. A sterile speculum was placed into the vagina and the cervix was visualized. The cervix was grasped with a single tooth tenaculum. The endometrial pipette was placed through the cervix into the uterus, endometrial curettage was performed and sampling was obtained, endometrial curettings were placed in formalin, and single tooth tenaculum was removed. Excellent hemostasis was assured. All instruments were removed from vagina. Patient desires surgical management for menorrhagia. Patient to setup pre-op appointment prior to leaving office today. Follow Up: Patient is to return clinic for pre-op appointment. Documented by Adelita Warren LPN on behalf of: Jamil Ponce DO documented in this encounter [facility] Evaluation note Note Date & Type Note Facility [facility] note [facility]: Evaluation note Note Date & Type Note Facility Evaluation note Diagnosis Menorrhagia with regular cycle documented in this encounter [facility] Summary Purpose Family History No Family History Records FoundNo Family History Records FoundNo Family History Records FoundNo Family History Records Found Advance Directives No Advanced Directives Records FoundNo Advanced Directives Records FoundNo Advanced Directives Records FoundNo Advanced Directives Records Found Additional Source Comments INFORMATION SOURCE (unrecogn ized section and content) DATE [facility] DATE CREATED AUTHOR AUTHOR'S ORGANIZ ATION 02/15/2023 [facility] DATE CREATED AUTHOR AUTHOR'S ORGANIZ ATION 07/17/2024 [facility] EPIC DATE CREATED AUTHOR AUTHOR'S ORGANIZ ATION 07/18/2024 [facility] Care Teams (unrecognized sec tion and content) [employer] Relationship Specialty Start Date End Date Mundo Kendrick MD [address] [facility] [place] [address] PCP - General Family Medicine 02/21/23 Jamil Ponce DO [address] [place] [address] PCP - [facility] 01/01/24 Team Status: Active Member Role Status Dates PHYSICIAN NO FAMILY Primary Care Provider Active Team Status: Inactive Member Role Status Dates PHYSICIAN NO FAMILY Primary Care Provider Active Start: July 16, 2024 End: July 16, 2024 Jamil Ponce DO Attending Provider Active Start : July 16, 2024 End: July 16, 2024 [employer] Relationship Specialty Start Date End Date Mundo Kendrick MD [address] [place] [address] PCP - General Family Medicine 02/21/23 Jamil Ponce DO [address] [place] [address] PCP - [facility] 01/01/24 Goals (unrecognized section and content) Goals may be documented in a n alternate section Reason for Visit (unrecogniz ed section and content) Reason Comments Endometrial biopsy FOR RECORDS PERTAINING TO PATIENTS WHO ARE [...] BE BASED ON THE PRIMARY CLINICAL RECORDS. [facility]. provides no warranty or guarantee of the accuracy or completeness of information in this document.
== END 2024-07-15 13:16 | disposition home or self-care (01) ==
LOC: LAB 13:15
PROVIDERS: PCP Nurse Practitioner Family; Visit Provider Obstetrics & Gynecology
DX: N92.0 Excessive and frequent menstruation with regular cycle (principal)
CPT/HCPCS: 88305

== ENCOUNTER 2024-08-07 08:58 | Outpatient (OUT) | payer OTHER, SELFPAY ==
--- OUTSIDE RECORDS SUMMARY | 2024-08-07 09:19 | XMS_ITS | CCD ---
Author Organization [facility] Care Team Providers Care Energy Scheduler Name Role Phone ROSARIO ., DR NEGRON [...] Unavailable ROSARIO ., DR NEGRON Admitting Unavailable [place], DR MICHELLE Orellana Consulting Unavailable ROSARIO ., [...] Unavailable ROSARIO ., DR NEGRON Consulting Unavailable ZIEBER, DR LIAM Tobias Consulting Unavailable JAYSHREE LEIJA Primary Care Unavailable RAMU HARVEY Attending Unavailable RAMU HARVEY Admitting Unavailable RAMU HARVEY Consulting Unavailable ROSARIO ., DR NEGRON Attending Unavailable ROSARIO ., DR NEGRON Admitting Unavailable REQUEST, DR NONE LISTED Primary Care Unavaila ble ROSARIO ., DR NEGRON Consulting Unavailable Aroldo HAGAN, Mundo M Primary Care Provider [phone] Rosario DO, Jamil Unavailable NO FAMILY, PHYSICIAN Primary Care Provider Unava ilable Rosario, DO Jamil Attending Provider ROSARIO, JAMIL Attending Unavailable ROSARIO, JAMIL Attending Unavailable ROSARIO, JAMIL Attending Unavailable ROSARIO, JAMIL Attending Unavailable ROSARIO, JAMIL Attending Unavailable NO FAMILY, PHYSICIAN Primary Care Unavailable Rosario, Jamil Attending Unavailable RosarioMarquezy Admitting Unavailable Allergies Allergy Classification Reported Allergen(s) Allergy Type Date of Onset Reaction(s) Facility (1 source) Morphine Drug Allergy 8 [facility] (1 source) Penicillins Drug allergy (disorder) 5 [facility] (3 sources) Amoxicillin Drug Allergy 3 Hives [facility] Work Phone: (3 sources) Penicillins Propensity to adverse reactions 3 [facility] Medications Current Medications Medication Drug Class(es) Dates Sig (Normalized) Sig (Original) 0.5 ml buprenorphine 200 mg/ml prefilled syringe (3 sources) Partial Opioid Agonist Start: 09-27-2023 Sublocade 100 MG/0.5ML injection 09/27/2023 Active etonogestrel 68 mg drug implant (3 sources) Progestin etonogestrel-elu tin g 68 mg contraceptive implant 1 each by Implant route 1 (one) time Active Vit-Fe Fumarate-FA ( 19) chewable tablet (3 sources) Start: 03-06-2023 take 1 tablet by mouth once daily Vit-Fe Fumarate-FA ( 19) chewable tablet TAKE 1 TABLET BY MOUTH EVERY DAY FOR 30 DAYS 03/06/2023 Active Problems Active Problems Problem Classification Problem Date Documented Date Episodic/Chronic Abdominal pain (5 sources) Unspecified abdominal pain; Translations: [Female genital organ symptoms] Onset: 02-13-2023 06-24-2024 Episodic Contraceptive and procreative management (1 source) Sterilization requested; Translations: [Encounter for sterilization] 07-22-2024 Episodic Menstrual disorders (13 sources) Irregular menstruation, unspecified; Translations: [Excessive and frequent menstruation] Onset: 10-07-2022 Chronic Mood disorders (3 sources) Mild depression; Translations: [Mild depression] Onset: 03-31-2023 03-31-2023 Chronic Other complications of ; puerperium affecting management of mother (1 source) Smoking (tobacco) complicating childbirth; Translations: [SMOKING TOBACCO COMP CHILDBIRTH] Onset: 02-13-2023 Episodic Other complications of (4 sources) Other specified related conditions, third trimester; Translations: [OTH SPEC PREG RELATED COND 3RD TRI] Onset: 02-11-2023 Episodic Other female genital disorders (4 sources) Abnormal uterine bleeding; Translations: [Abnormal uterine and vaginal bleeding, unspecified] Onset: 03-31-2023 03-31-2023 Chronic Other nervous system disorders (3 sources) Carpal tunnel syndrome; Translations: [Carpal tunnel [...] OF ] Onset: 12-28-2022 Episodic Substance-related disorders (7 sources) Nicotine dependence, cigarettes, uncomplicated; Translations: [Smoker] Onset: 02-13-2023 03-31-2023 Chronic Past or Other Problems Problem Classification Problem Date Documented Date Episodic/Chronic Allergic reactions (3 sources) Eczema; Translations: [Dermatitis, unspecified] Onset: 06-11-2010 03-31-2023 Episodic Genitourinary symptoms and ill-defined conditions (6 sources) Disorder of urinary tract; Translations: [Disorder of urinary system, unspecified] Onset: 03-31-2023 03-31-2023 Episodic Immunizations and screening for infectious disease (2 sources) Encounter for screening for human papillomavirus (HPV); Translations: [Contact with and (suspected) exposure to infections with a predominantly sexual mode of transmission] Onset: 11-06-2022 Episodic Malaise and fatigue (3 sources) Fatigue; Translations: [Other fatigue] Onset: 03-31-2023 03-31-2023 Episodic Nonmalignant breast conditions (3 sources) Breast tenderness; Translations: [Mastodynia] Onset: 03-31-2023 03-31-2023 Episodic Other female genital disorders (1 source) Other specified noninflammatory disorders of vagina; Translations: [OTH SPEC NONINFLAMMATORY D/O VAGINA] Onset: 11-06-2022 Episodic Other non-traumatic joint disorders (3 sources) Ankle pain; Translations: [Pain in unspecified ankle and joints of unspecified foot] Onset: 06-11-2010 03-31-2023 Episodic Residual codes; unclassified (3 sources) RhD negative; Translations: [Unspecified blood type, Rh negative] Onset: 03-31-2023 03-31-2023 Episodic Spondylosis; intervertebral disc disorders; other back problems (3 sources) Backache; Translations: [Dorsalgia, unspecified] Onset: 03-31-2023 03-31-2023 Episodic Results Test Name Value Interpretation Reference Range Facility HCG ( test) Ql (U)o n 07-15-2024 Interpretation and review of laboratory results Normal [facility] Preg Test, Ur Negative [facility] Oscar 07-15-2024 L Specimen: [id number] Received: 07/16/24 Status: ELIGIO Harrell Num: [id number] Spec Type: Surgical Subm Dr: Jamil Ponce Tissues: A Endometrium - Biopsy (EMBX) Procedures: HE/2, Gross/Micro L4 Age/ Patient Sex Location Account Attending Physician ElmiraEloina loo 29/F LABELL [id number] Jamil Ponce SPEC NUM: [id number] RECD: 07/16/24 STATUS: ELIGIO JULIO CESAR NUM: [id number] CADENCE: 07/15/24- SUBM DR: Jamil Ponce ENTERED: 07/16/24 [facility] DR: Aiden,Lab SPEC TYPE: Surgical DEPT: [facility]UR[facility] ROBB ENTERED BY: [id number] RECV BY: [id number] ORDERED: HE/2, Gross/Micro L4 ORDERED: HE/2, Gross/Micro L4 Pathological Diagnosis Endometrium, curettage: - Proliferative phase endometrium. - No evidence of hyperplasia or malignancy identified. Clinical Information Menorrhagia Gross Description The specimen is received in formalin with the patient's name and EM BX and consists of multiple ramirez-pink soft tissue fragments measuring 2.0 x 0.5 x 0.2 cm in aggregate. The specimen is filtered entirely submitted cassette A1 Microscopic Description Examination is performed. CPT Codes 38297 ---- ---- Specimen: [id number] Received: 07/16/24 Status: ELIGIO Julio Cesar Num: [id number] Spec Type: Surgical Subm Dr: Jamil Ponce Tissues: A Endometrium - Biopsy (EMBX) Procedures: HE/2, Gross/Micro L4 ---- Patient: ElmiraEloina [id number] (Continued) ---- Signed (signature on file) Warren Parkinson MD 07/23/24 1116 Normal [facility] ALL CBC WITH AUTO DIFFon BASOPHILS ABSOLUTE AUTO 0.0 [facility] Basophils/100 WBC (Bld) 0.6 % 0.2 - 2.0 % [facility] Eosinophils/100 WBC (Bld) 1.7 % 0.9 - 7.0 % [facility] Erythrocyte distribution width (RBC) [Ratio] 12.5 % 11.0 - 15.0 % [facility] Hematocrit (Bld) [Volume fraction] 42.1 % 36.0 - 48.0 % [facility] Hemoglobin (Bld) [Mass/Vol] 14.3 g/dL 12.0 - 16.0 g/dL [facility] IMMATURE GRANULOCYTES ABS AUTO 0.00 [facility] Immature granulocytes/100 WBC (Bld) 0.0 % 0.0 - 0.5 % [facility] LYMPHOCYTES ABSOLUTE AUTO 1.7 [facility] Lymphocytes/100 WBC (Bld) 27.1 % 20.5 - 60.0 % [facility] MCH (RBC) [Entitic mass] 31.8 pg 26.7 - 34.0 pg [facility] MCHC (RBC) [Mass/Vol] 34.0 g/dL 29.9 - 35.2 g/dL [facility] MCV (RBC) [Entitic vol] 93.6 fL 81.0 - 99.0 fL [facility] MONOCYTES ABSOLUTE AUTO 0.5 [facility] Monocytes/100 WBC (Bld) 8.1 % 1.7 - 12.0 % [facility] NEUTROPHILS ABSOLUTE AUTO 3.9 [facility] Neutrophils/100 WBC (Bld) 62.5 % 43.0 - 75.0 % [facility] Platelet mean volume (Bld) [Entitic vol] 9.8 fL 9.5 - 13.5 fL [facility] TBH EO # 0.1 [facility] TB PLT 210 [facility] RBC 4.50 [facility] WBC 6.3 [facility] TYPE AND SCREENon 02-11-2023 TYPE AND SCREEN Negative Normal [facility] Comment on above: Performed By: #### V AGINT #### [facility] [address] [place] [address] Dr. Kelly Montilla CULTURE URINEon 02-08-2023 CULTURE URINE Culture Observations : LIGHT GROWTH OF MIXED GENITAL ALBAN. NO POTENTIAL PATHOGENS SEEN. Normal [facility] Comment on above: Performed By: #### V AGINT #### [facility] [address] [place] [address] Dr. Kelly Montilla UA (CLEAN/CATCH) PLATFORM BUILDER/MICRO I F IND.on 02-08-2023 Bilirubin Ql (U) Negative Normal NEGATIVE [facility] Comment on above: Performed By: #### U ACSLUIS FELIPE UMICRO #### [facility] [address] [place] [address] Dr. Kelly Montilla Clarity (U) CLEAR Normal CLEAR [facility] Comment on above: Performed By: #### U ACSLUIS FELIPE UMICRO #### [facility] [address] [place] [address] Dr. Kelly Montilla Color (U) YELLOW Normal YELLOW [facility] Comment on above: Performed By: #### U ACSLUIS FELIPE UMICRO #### [facility] [address] [address] [address] Kelly Montilla Glucose Ql (U) Negative Normal NEGATIVE [facility] Comment on above: Performed By: #### U ACSIND, UMICRO #### [facility] [address] [address] [address] Kelly Montilla Hemoglobin Ql (U) Negative Normal NEGATIVE [facility] Comment on above: Performed By: #### U ACSIND, UMICRO #### [facility] [address] [address] [address] Kelly Montilla Ketones Ql (U) Negative Normal NEGATIVE [facility] Comment on above: Performed By: #### U ACSIND, UMICRO #### [facility] [address] [address] [address] Kelly Montilla LEUKOCYTES SMALL Abnormal NEGATIVE [facility] Comment on above: Performed By: #### U ACSIND, UMICRO #### [facility] [address] [address] [address] Kelly Montilla Nitrite Ql (U) Negative Normal NEGATIVE [facility] Comment on above: Performed By: #### U ACSIND, UMICRO #### [facility] [address] [address] [address] Kelly Montilla pH (U) 7.5 [pH] Normal 5-9 [facility] Comment on above: Performed By: #### U ACSIND, UMICRO #### [facility] [address] [address] [address] Kelly Montilla SPEC GRAVITY 1.020 Normal 1.005-<=1.025 [facility] Comment on above: Performed By: #### U ACSIND, UMICRO #### [facility] [address] [address] [address] Kelly Montilla UA PROTEIN TRACE Normal NEGATIVE/ TRACE [facility] Comment on above: Performed By: #### U ACSIND, UMICRO #### [facility] [address] [address] [address] Kelly Montilla UR MICRO IND INDICATED Normal [facility] Comment on above: Performed By: #### U ACSIND, UMICRO #### [facility] [address] [address] [address] Kelly Montilla Urobilinogen Qn (U) 4 {Maria C'U}/dL Abnormal 0.2 - 1.0 [facility] Comment on above: Performed By: #### U ACSIND, UMICRO #### [facility] [address] [address] [address] Kelly Montilla URINE MICROSCOPIC ONLYon BACTERIA SMALL Abnormal NONE SEEN [facility] Comment on above: Performed By: #### U ACSIND, UMICRO #### [facility] [address] [address] [address] Kelly Montilla Bacteria identified Cx Nom (U) INDICATED Normal [facility] Comment on above: Performed By: #### U ACSIND, UMICRO #### [facility] [address] [place] [address] Dr. Kelly Montilla CAST NONE SEEN Normal NONE SEEN [facility] Comment on above: Performed By: #### U ACSIND, UMICRO #### [facility] [address] [place] [address] Dr. Kelly Montilla Crystals LM Nom (Urine sed) NONE SEEN Normal NONE SEEN [facility] Comment on above: Performed By: #### U ACSIND, UMICRO #### [facility] [address] [place] [address] Dr. Kelly Montilla Epithelial cells LM Ql (Urine sed) FEW Abnormal NONE SEEN /RARE [facility] Comment on above: Performed By: #### U ACSIND, UMICRO #### [facility] [address] [address] [address] Kelly Montilla MUCOUS TRACE Abnormal NONE SEEN [facility] Comment on above: Performed By: #### U ACSIND, UMICRO #### [facility] [address] [place] [address] Dr. Kelly Montilla RBC 0-2 Normal 0-2 [facility] Comment on above: Performed By: #### U ACSIND, UMICRO #### [facility] [address] [place] [address] Dr. Kelly Montilla WBC 5-10 Abnormal NONE SEEN [facility] Comment on above: Performed By: #### U TOMÁS JEAN #### [facility] [address] [place] [address] Dr. Kelly Montilla CBC AUTO DIFFon 01-27-2023 BASO # 0.0 103/ul Normal 0.0-0.1 [facility] Comment on above: Performed By: #### C BC #### [facility] [address] [place] [address] Dr. Kelly Montilla Basophils/100 WBC (Bld) 0.2 % Normal 0.2-2.0 [facility] Comment on above: Performed By: #### C BC #### [facility] [address] [place] [address] Dr. Kelly Montilla EO # 0.2 103/ul Normal 0.0-0.7 [facility] Comment on above: Performed By: #### C BC #### [facility] [address] [place] [address] Dr. Kelly Montilla Eosinophils/100 WBC (Bld) 1.6 % Normal 0.9-7.0 [facility] Comment on above: Performed By: #### C BC #### [facility] [address] [place] [address] Dr. Kelly Montilla Erythrocyte distribution width (RBC) [Ratio] 13.2 % Normal 11.0-15.0 [facility] Comment on above: Performed By: #### C BC #### [facility] [address] [place] [address] Dr. Kelly Montilla Hematocrit (Bld) [Volume fraction] 33.7 % Critically low 36.0-48.0 [facility] Comment on above: Performed By: #### C BC #### [facility] [address] [place] [address] Dr. Kelly Montilla Hemoglobin (Bld) [Mass/Vol] 11.5 g/dL Critically low 12.0-16.0 [facility] Comment on above: Performed By: #### C BC #### [facility] [address] [place] [address] Dr. Kelly Montilla IG # 0.03 10e3/ul Normal 0.00-0.03 [facility] Comment on above: Performed By: #### C BC #### [facility] [address] [place] [address] Dr. Kelly Montilla IG % 0.3 % Normal 0.0-0.5 [facility] Comment on above: Performed By: #### C BC #### [facility] [address] [place] [address] Dr. Kelly Montilla LYMPH # 2.0 103/ul Normal 1.2-3.8 [facility] Comment on above: Performed By: #### C BC #### [facility] [address] [place] [address] Dr. Kelly Montilla Lymphocytes/100 WBC (Bld) 21.4 % Normal 20.5-60.0 [facility] Comment on above: Performed By: #### C BC #### [facility] [address] [place] [address] Dr. Kelly Montilla MANUAL DIFF REQ NO Normal [facility] Comment on above: Performed By: #### C BC #### [facility] [address] [place] [address] Dr. Kelly Montilla MCH (RBC) [Entitic mass] 33.4 pg Normal 26.7-34.0 [facility] Comment on above: Performed By: #### C BC #### [facility] [address] [place] [address] Dr. Kelly Montilla MCHC (RBC) [Mass/Vol] 34.1 g/dL Normal 29.9-35.2 [facility] Comment on above: Performed By: #### C BC #### [facility] [address] [place] [address] Dr. Kelly Montilla MCV (RBC) [Entitic vol] 98.0 fL Normal 81.0-99.0 [facility] Comment on above: Performed By: #### C BC #### [facility] [address] [place] [address] Dr. Kelly Montilla MONO # 0.6 103/ul Normal 0.3-0.8 [facility] Comment on above: Performed By: #### C BC #### [facility] [address] [place] [address] Dr. Kelly Montilla Monocytes/100 WBC (Bld) 6.4 % Normal 1.7-12.0 [facility] Comment on above: Performed By: #### C BC #### [facility] [address] [place] [address] Dr. Kelly Montilla NEUT # 6.6 103/ul Critically high 1.4-6.5 [facility] Comment on above: Performed By: #### C BC #### [facility] [address] [place] [address] Dr. Kelly Montilla Neutrophils/100 WBC (Bld) 70.1 % Normal 43.0-75.0 [facility] Comment on above: Performed By: #### C BC #### [facility] [address] [place] [address] Dr. Kelly Montilla Platelet mean volume (Bld) [Entitic vol] 9.3 fL Critically low 9.5-13.5 [facility] Comment on above: Performed By: #### C BC #### [facility] [address] [place] [address] Dr. Kelly Montilla PLT 203 103/ul Normal 150-450 [facility] Comment on above: Performed By: #### C BC #### [facility] [address] [place] [address] Dr. Kelly Montilla RBC 3.44 106/ul Critically low 4.20-5.40 [facility] Comment on above: Performed By: #### C BC #### [facility] [address] [place] [address] Dr. Kelly Montilla WBC 9.4 103/ul Normal 4.0-11.0 [facility] Comment on above: Performed By: #### C BC #### [facility] [address] [place] [address] Dr. Kelly Montilla GLUCOSE - 1HRon 01-27-2023 Glucose [Mass/Vol] 73 mg/dL Critically low 74-106 [facility] Comment on above: Performed By: #### V AGINT #### [facility] [address] [place] [address] Dr. Kelly Montilla AMNISUREon 12-24-2022 AMNISURE Negative Normal NEGATIVE [facility] Comment on above: Performed By: #### V AGINT #### [facility] [address] [place] [address] Dr. Kelly Montilla CULTURE URINEon 12-24-2022 CULTURE URINE Culture Observations : LIGHT GROWTH OF MIXED GENITAL ALBAN. NO POTENTIAL PATHOGENS SEEN. Normal [facility] Comment on above: Performed By: #### U RCX #### [facility] [address] [place] [address] Dr. Kelly Montilla UA (CLEAN/CATCH) PLATFORM BUILDER/MICRO I F IND.on 12-24-2022 Bilirubin Ql (U) Negative Normal NEGATIVE [facility] Comment on above: Performed By: #### U ACSIND, UMICRO #### [facility] [address] [place] [address] Dr. Kelly Montilla Clarity (U) CLEAR Normal CLEAR [facility] Comment on above: Performed By: #### U ACSIND, UMICRO #### [facility] [address] [place] [address] Dr. Kelly Montilla Color (U) YELLOW Normal YELLOW [facility] Comment on above: Performed By: #### U ACSIND, UMICRO #### [facility] [address] [place] [address] Dr. Kelly Montilla Glucose Ql (U) Negative Normal NEGATIVE [facility] Comment on above: Performed By: #### U ACSIND, UMICRO #### [facility] [address] [place] [address] Dr. Kelly Montilla Hemoglobin Ql (U) Negative Normal NEGATIVE [facility] Comment on above: Performed By: #### U ACSIND, UMICRO #### [facility] [address] [place] [address] Dr. Kelly Montilla Ketones Ql (U) Negative Normal NEGATIVE [facility] Comment on above: Performed By: #### U ACSLUIS FELIPE UMICRO #### [facility] [address] [address] [address] Kelly Montilla LEUKOCYTES SMALL Abnormal NEGATIVE [facility] Comment on above: Performed By: #### U ACSLUIS FELIPE, UMICRO #### [facility] [address] [address] [address] Kelly Montilla Nitrite Ql (U) Negative Normal NEGATIVE [facility] Comment on above: Performed By: #### U ACSLUIS FELIPE UMICRO #### [facility] [address] [address] [address] Kelly Montilla pH (U) 6.0 [pH] Normal 5-9 [facility] Comment on above: Performed By: #### U ACSLUIS FELIPE ICRO #### [facility] [address] [place] [address] Dr. Kelly Montilla SPEC GRAVITY 1.025 Normal 1.005-<=1.025 [facility] Comment on above: Performed By: #### U ACSLUIS FELIPE ICRO #### [facility] [address] [place] [address] Dr. Kelly Montilla UA PROTEIN Negative Normal NEGATIVE/ TRACE [facility] Comment on above: Performed By: #### U ETD ICRO #### [facility] [address] [address] [address] Kelly Montilla UR MICRO IND INDICATED Normal [facility] Comment on above: Performed By: #### U TED UMICRO #### [facility] [address] [address] [address] Kelly Montilla Urobilinogen Qn (U) 1.0 {Maria C'U}/dL Normal 0.2 - 1. 0 [facility] Comment on above: Performed By: #### U TED ICRO #### [facility] [address] [place] [address] Dr. Kelly Montilla URINE MICROSCOPIC ONLYon BACTERIA MODERATE Abnormal NONE SEEN [facility] Comment on above: Performed By: #### U ACSLUIS FELIPE UMICRO #### [facility] [address] [address] [address] Kelly Montilla Bacteria identified Cx Nom (U) INDICATED Normal [facility] Comment on above: Performed By: #### U ACSIND, UMICRO #### [facility] [address] [place] [address] Dr. Kelly Montilla CAST NONE SEEN Normal NONE SEEN [facility] Comment on above: Performed By: #### U ACSIND, UMICRO #### [facility] [address] [address] [address] Kelly Montilla Crystals LM Nom (Urine sed) NONE SEEN Normal NONE SEEN [facility] Comment on above: Performed By: #### U ACSIND, UMICRO #### [facility] [address] [place] [address] Dr. Kelly Montilla Epithelial cells LM Ql (Urine sed) FEW Abnormal NONE SEEN /RARE [facility] Comment on above: Performed By: #### U ACSLUIS FELIPE, UMICRO #### [facility] [address] [place] [address] Dr. Kelly Montilla MUCOUS TRACE Abnormal NONE SEEN [facility] Comment on above: Performed By: #### U ACSLUIS FELIPE, UMICRO #### [facility] [address] [place] [address] Dr. Kelly Montilla RBC NONE SEEN Abnormal 0-2 [facility] Comment on above: Performed By: #### U ACSLUIS FELIPE, UMICRO #### [facility] [address] [place] [address] Dr. Kelly Montilla WBC 5-10 Abnormal NONE SEEN [facility] Comment on above: Performed By: #### U ACSIND, UMICRO #### [facility] [address] [place] [address] Dr. Kelly Montilla US PREG INCOMPLETE ANATOMYon [...] LIAM BOYKIN Date: 2022-12-23 10:42 Normal [facility] US PREG ANATOMY SINGLEon US PREG [...] due to position. Electronically authenticated by: LIAM BOKYIN Date: 2022-12-13 16:10 Normal [facility] AFP MATERNAL FOR SPINA BIFID Aon 12-11-2022 AFP MoM 0.91 Normal [facility] Comment on above: Performed By: #### U TOMÁS JEAN #### [facility] [address] [address] [address] Kelly Montilla AFP Value 51.5 ng/mL Normal [facility] Comment on above: Performed By: #### U TOMÁS JEAN #### [facility] [address] [address] [address] Kelly Montilla AFP, Serum for Spina Bifida Report Normal [facility] Comment on above: Performed By: #### U BRITTON JEANRO #### [facility] [address] [address] [address] Kelly Montilla Comment Comment Normal [facility] Comment on above: Result Comment: Vannessa Alcala, Ph.D., [facility] Director . References: Available Upon Request. . Multiples Of Median Cutoffs For AFP Elevations Stinson 2.5 Black 2.8 IDD 2.0 Twins 4.5 Abbreviation Definitions IDD - Insulin Dep Diabetes OSBR - Open Spina Bifida Risk . For further inquiries contact [facility] at [phone]. . This test was developed and its performance characteristics determined by [employer]. It has not been cleared or approved by the Food and Drug Administration. Performed By: #### U BRITTON JEANRO #### [facility] [address] [address] [address] Kelly Montilla Gest Age Collection Date 20.0 weeks Normal [facility] Comment on above: Performed By: #### U NANCI JEANICRO #### [facility] [address] [address] [address] Kelly Montilla Gestat, Age Based on Ultrasound Normal [facility] Comment on above: Result Comment: 14.9 on 11/03/2022 Recalculations are not recommended when gestational dating by LMP and ultrasound are within 10 days. Performed By: #### U BRITTON JEANRO #### [facility] [address] [place] [address] Dr. Kelly Montilla Insulin Dep Diabetes No Normal [facility] Comment on above: Performed By: #### U TED UMICRO #### [facility] [address] [place] [address] Dr. Kelly Montilla Interpretation Comment Normal [facility] Comment on above: Result Comment: Inte [...] Customer Services to discuss available options. The [employer] recommends amniocentesis be offered to women age 35 and older. Performed By: #### U ACSIND, UMICRO #### [facility] [address] [address] [address] Kelly Montilla [age] Normal [facility] Comment on above: Performed By: #### U ACSIND, UMICRO #### [facility] [address] [address] [address] Kelly Montilla Multiple Gestation No Normal [facility] Comment on above: Performed By: #### U ACSIND, UMICRO #### [facility] [address] [place] [address] Dr. Kelly Montilla OSBR [place] 1 [place] [address] Normal [facility] Comment on above: Performed By: #### U ACSIND, UMICRO #### [facility] [address] [address] [address] Kelly Montilla PDF . [facility] Comment on above: Performed By: #### U ACSIND, UMICRO #### [facility] [address] [place] [address] Dr. Kelly Montilla Race [facility] Comment on above: Performed By: #### U ACSIND, UMICRO #### [facility] [address] [place] [address] Dr. Kelly Montilla Test Results: Negative Normal [facility] Comment on above: Performed By: #### U ACSIND, UMICRO #### [facility] [address] [place] [address] Dr. Kelly Montilla PAP ACOG PANEL 2: 21 to 29on 11-11-2022 . . Normal [facility] Comment on above: Performed By: #### 4 [id number] #### [facility] [address] [place] [address] Dr. Kelly Montilla Age Gdln ACOG Testing 21-29 Normal [facility] Comment on above: Performed By: #### 4 [id number] #### [facility] [address] [place] [address] Dr. Kelly Montilla DIAGNOSIS: Comment [facility] Comment on above: Result Comment: NEGA TIVE FOR INTRAEPITHELIAL LESION OR MALIGNANCY. THIS SPECIMEN WAS RESCREENED PART OF OUR TRANSCRIBING MACHINE OPERATOR PROGRAM. Performed By: #### 4 [id number] #### [facility] [address] [place] [address] Dr. Kelly Montilla Methodology: Comment [facility] Comment on above: Result Comment: This liquid based ThinPrep(R) pap test was screened with the use of an image guided system. Performed By: #### 4 [id number] #### [facility] [address] [place] [address] Dr. Kelly Montilla Note: Comment [facility] Comment on above: Result Comment: The Pap smear is a screening test designed to aid in the detection of premalignant and malignant conditions of the uterine cervix. It is not a diagnostic procedure and should not be used as the sole means of detecting cervical cancer. Both false-positive and false-negative reports do occur. . Performed By: #### 4 [id number] #### [facility] [address] [place] [address] Dr. Kelly Montilla Performed by: Comment Normal [facility] Comment on above: Result Comment: Hector Bowles, Otr Flatbed Driver (ASCP) Performed By: #### 4 [id number] #### [facility] [address] [place] [address] Dr. Kelly Montilla QC reviewed by: Comment Normal [facility] Comment on above: Result Comment: oWo Lawrence, Supervisory Otr Flatbed Driver (ASCP) Performed By: #### 4 [id number] #### [facility] [address] [place] [address] Dr. Kelly Montilla Reflex Criteria: Comment [facility] Comment on above: Result Comment: The HPV DNA reflex criteria were not met with this specimen result therefore, no HPV testing was performed. . Performed By: #### 4 [id number] #### [facility] [address] [place] [address] Dr. Kelly Montilla Specimen adequacy: Comment Normal [facility] Comment on above: Result Comment: Sati sfactory for evaluation. Endocervical and/or squamous metaplastic cells (endocervical component) are present. Performed By: #### 4 [id number] #### [facility] [address] [place] [address] Dr. Kelly Montilla CHLAMYDIA/GONOCOCCUS DONTA (SW AB/URINE/PAPon 11-07-2022 Chlamydia trachomatis, DONTA Negative Normal Negative [facility] Comment on above: Performed By: #### V AGINT #### [facility] [address] [place] [address] Dr. Kelly Montilla Neisseria gonorrhoeae, DONTA Negative Normal Negative [facility] Comment on above: Performed By: #### V AGINT #### [facility] [address] [place] [address] Dr. Kelly Montilla VAGINITIS/VAGINOSIS DNA PROB Buster 11-05-2022 Patty species Negative Normal Negative [facility] Comment on above: Performed By: #### V AGINT #### [facility] [address] [place] [address] Dr. Kelly Montilla Gardnerella vaginalis Negative Normal Negative [facility] Comment on above: Performed By: #### V AGINT #### [facility] [address] [place] [address] Dr. Kelly Montilla Trichomonas vaginalis Negative Normal Negative [facility] Comment on above: Performed By: #### V AGINT #### [facility] [address] [place] [address] Dr. Kelly Montilla HEP B SURFACE ANTIGEN SCREEN on 10-08-2022 HBsAg Screen Negative Normal Negative [facility] Comment on above: Performed By: #### H BSANS #### [facility] [address] [place] [address] Dr. Kelly Montilla HEPATITIS C VIRUS AB W/ REFL EX QUANTon 10-08-2022 HCV AB <0.1 Normal 0.0-0.9 [facility] Comment on above: Performed By: #### U ACSLUIS FELIPE, UMICRO #### [facility] [address] [address] [address] Kelly Montilla Interpretation: Comment Normal [facility] Comment on above: Result Comment: Nega tive Not infected with HCV, unless recent infection is suspected or other evidence exists to indicate HCV infection. Performed By: #### U ACSLUIS FELIPE, UMICRO #### [facility] [address] [address] [address] Kelly Montilla HIV 1 AND 2 WITH REFLEXon HIV Screen 4th Generation wRfx Non-Reactive Normal Non Reactive [facility] Comment on above: Result Comment: HIV Negative HIV-1/HIV-2 antibodies and HIV-1 p24 antigen were NOT detected. There is no laboratory evidence of HIV infection. Performed By: #### H IV12 #### [facility] [address] [place] [address] Dr. Kelly Montilla RPR QUANTon 10-08-2022 Rapid Plasma Reagin, Quant Non-Reactive Normal NonRea<1:1 [facility] Comment on above: Result Comment: Plea se Note: This test does not meet current guidelines for screening and diagnosis of syphilis. This test is intended for following treatment response in patients being treated for syphilis infection. To screen for syphilis infection, a reflex cascade that includes both RPR and a treponema-specific assay should be utilized, such as Treponema pallidum (Syphilis) Screening [place] (259428) or Rapid Plasma Reagin (RPR) Test With Reflex to Quantitative RPR and Confirmatory Treponema pallidum Antibodies (017701). Performed By: #### U ACSLUIS FELIPE, UMICRO #### [facility] [address] [address] [address] Kelly Montilla RUBELLA AB IGGon 10-08-2022 Rubella Antibodies, IgG 4.88 index Normal Immune >0.99 [facility] Comment on above: Result Comment: Non- immune <0.90 Equivocal 0.90 - 0.99 Immune >0.99 Performed By: #### U ACSLUIS FELIPE, UMICRO #### [facility] [address] [address] [address] Kelly Montilla CBC AUTO DIFFon 10-07-2022 BASO # 0.0 103/ul Normal 0.0-0.1 [facility] Comment on above: Performed By: #### V AGINT #### [facility] [address] [place] [address] Dr. Kelly Montilla Basophils/100 WBC (Bld) 0.4 % Normal 0.2-2.0 [facility] Comment on above: Performed By: #### V AGINT #### [facility] [address] [place] [address] Dr. Kelly Montilla EO # 0.1 103/ul Normal 0.0-0.7 [facility] Comment on above: Performed By: #### V AGINT #### [facility] [address] [place] [address] Dr. Kelly Montilla Eosinophils/100 WBC (Bld) 1.6 % Normal 0.9-7.0 [facility] Comment on above: Performed By: #### V AGINT #### [facility] [address] [place] [address] Dr. Kelly Montilla Erythrocyte distribution width (RBC) [Ratio] 12.4 % Normal 11.0-15.0 [facility] Comment on above: Performed By: #### V AGINT #### [facility] [address] [place] [address] Dr. Kelly Montilla Hematocrit (Bld) [Volume fraction] 35.4 % Critically low 36.0-48.0 [facility] Comment on above: Performed By: #### V AGINT #### [facility] [address] [place] [address] Dr. Kelly Montilla Hemoglobin (Bld) [Mass/Vol] 12.4 g/dL Normal 12.0-16.0 [facility] Comment on above: Performed By: #### V AGINT #### [facility] [address] [place] [address] Dr. Kelly Montilla IG # 0.02 10e3/ul Normal 0.00-0.03 [facility] Comment on above: Performed By: #### V AGINT #### [facility] [address] [place] [address] Dr. Kelly Montilla IG % 0.3 % Normal 0.0-0.5 [facility] Comment on above: Performed By: #### V AGINT #### [facility] [address] [place] [address] Dr. Kelly Montilla LYMPH # 1.8 103/ul Normal 1.2-3.8 [facility] Comment on above: Performed By: #### V AGINT #### [facility] [address] [place] [address] Dr. Kelly Montilla Lymphocytes/100 WBC (Bld) 23.6 % Normal 20.5-60.0 [facility] Comment on above: Performed By: #### V AGINT #### [facility] [address] [place] [address] Dr. Kelly Montilla MANUAL DIFF REQ NO Normal [facility] Comment on above: Performed By: #### V AGINT #### [facility] [address] [place] [address] Dr. Kelly Montilla MCH (RBC) [Entitic mass] 31.6 pg Normal 26.7-34.0 [facility] Comment on above: Performed By: #### V AGINT #### [facility] [address] [place] [address] Dr. Kelly Montilla MCHC (RBC) [Mass/Vol] 35.0 g/dL Normal 29.9-35.2 [facility] Comment on above: Performed By: #### V AGINT #### [facility] [address] [place] [address] Dr. Kelly Montilla MCV (RBC) [Entitic vol] 90.3 fL Normal 81.0-99.0 [facility] Comment on above: Performed By: #### V AGINT #### [facility] [address] [place] [address] Dr. Kelly Montilla MONO # 0.4 103/ul Normal 0.3-0.8 [facility] Comment on above: Performed By: #### V AGINT #### [facility] [address] [address] [address] Kelly Montilla Monocytes/100 WBC (Bld) 5.4 % Normal 1.7-12.0 [facility] Comment on above: Performed By: #### V AGINT #### [facility] [address] [address] [address] Kelly Montilla NEUT # 5.2 103/ul Normal 1.4-6.5 [facility] Comment on above: Performed By: #### V AGINT #### [facility] [address] [address] [address] Kelly Montilla Neutrophils/100 WBC (Bld) 68.7 % Normal 43.0-75.0 [facility] Comment on above: Performed By: #### V AGINT #### [facility] [address] [place] [address] Dr. Kelly Montilla Platelet mean volume (Bld) [Entitic vol] 9.3 fL Critically low 9.5-13.5 [facility] Comment on above: Performed By: #### V AGINT #### [facility] [address] [address] [address] Kelly Montilla PLT 217 103/ul Normal 150-450 [facility] Comment on above: Performed By: #### V AGINT #### [facility] [address] [place] [address] Dr. Kelly Montilla RBC 3.92 106/ul Critically low 4.20-5.40 [facility] Comment on above: Performed By: #### V AGINT #### [facility] [address] [place] [address] Dr. Kelly Montilla WBC 7.6 103/ul Normal 4.0-11.0 [facility] Comment on above: Performed By: #### V AGINT #### [facility] [address] [place] [address] Dr. Kelly Montilla CULTURE URINEon 10-07-2022 CULTURE URINE Culture Observations : LIGHT GROWTH OF MIXED GENITAL ALBAN. NO POTENTIAL PATHOGENS SEEN. Normal [facility] Comment on above: Performed By: #### U RCX #### [facility] [address] [address] [address] Kelly Montilla GLYCOHEMOGLOBIN A1Con 2022 ADA RECOMMENDATION SEE BELOW Normal [facility] Comment on above: Result Comment: ADA RECOMMENDED LIMIT 4.0 - 6.0 ADA THERAPEUTIC TARGET < 7.0 ACTION SUGGESTED > 7.0 Performed By: #### U ACSLUIS FELIPE, UMICRO #### [facility] [address] [address] [address] Kelly Montilla Glucose [Mass/Vol] 97 mg/dL Normal [facility] Comment on above: Performed By: #### U ACSLUIS FELIPE, UMICRO #### [facility] [address] [address] [address] Kelly Montilla HbA1c (Bld) [Mass fraction] 5.0 % Normal 4.5-6.2 [facility] Comment on above: Performed By: #### U ACSLUIS FELIPE, NANCIICRO #### [facility] [address] [address] [address] Kelly Montilla MYRA BOX TEST PT SEND OUTo n 10-07-2022 SENT TO REF LAB 10/07/2022 Normal [facility] Comment on above: Performed By: #### N BOX #### [facility] [address] [place] [address] Dr. Kelly Montilla TYPE AND SCREENon 10-07-2022 TYPE AND SCREEN Negative Normal [facility] Comment on above: Performed By: #### V AGINT #### [facility] [address] [place] [address] Dr. Kelly Montilla US PREG TVon 09-16-2022 [...] MICHELLE HAMMER Date: 2022-09-16 09:19 Normal [facility] ED Note-Physicianon 06-12-20 ED Note-Physician Basic Information Time Seen: Ilana Ornelas DO 06/10/2020 13:46 Chief Complaint Intermittent SOB and palpitations ongoing for a month. Denies chest pain. Seen at [facility] x[facility] for same problem. Was told 2 days ago she may have pneumonia. Taking zpack and inhalaher as prescribed with no relief. Anxious. History of Present Illness Pt is a 25 year old female who presents to the ED for chest pain and anxiety. Upon interview, she exhibits excessive worry about multiple different systems. She states she was just at [facility] where she had a chest x-ray [...] normal psychiatric thoughts. Medical Decision Making 1535: [facility] records requested at time of Pt arrival. Did not receive until 1510. CXR with no pneumonia. Will also add at D-dimer to her [facility] labs. ED tests discussed with Pt. Recommend [...] to 3 [address] [place] [address] [phone] Business (1) Additional Instructions: Return to ED if symptoms worsen. Cut back on Caffeine. You will be contacted to get a 48 hour heart monitor set up. Call your Pin Cleaner to discuss your frequent urination. Patient Education [...] 15:17:00) Lymph Auto: 24.5 % (06/10/20 15:17:00) [place] Auto: 6.1 % (06/10/20 15:17:00) Eos Auto: 1.7 % (06/10/20 15:17:00) Basophil Auto: 0.3 % (06/10/20 15:17:00) Neutro Absolute: 4.5 E9/L (06/10/20 15:17:00) Lymph Absolute: 1.6 E9/L (06/10/20 15:17:00) [place] Absolute: 0.4 E9/L (06/10/20 15:17:00) Eos Absolute: [...] By: Ilana Ornelas DO 06/10/2020 14:00:35 Normal [facility] Comment on above: Result Comment: Elec tronically Signed By: Maricarmen Reyes\.br\Date and Time Signed: 06/10/20 14:20 EDT\.br\Electronically Co-Signed By: Ilana Ornelas DO\.br\Date and Time Co-Signed: 06/12/20 12:11 EDT Coding Summary.on 06-11-2020 Coding Summary. CODING DATE: 06/11/2020 FINAL [facility] DSC STATUS: Home (Routine DC) PAYOR: Medicaid EAPG [...] Yee Date Saved: 06/11/2020 07:43 am Normal [facility] Auto Diffon 06-10-2020 Basophils/100 WBC (Bld) 0.3 % Normal 0.0-2.0 [facility] Comment on above: Order Comment: Order Added by Discern Expert. Performed By: #### 2 061066, [id number], 0780757, [id number], [id number] #### [facility] [address] [place] [address] Basophils/Leukocytes Auto (Bld) [Pure # fraction] 0.0 E9/L Normal 0.0-0.2 [facility] Comment on above: Order Comment: Order Added by Discern Expert. Performed By: #### 2 180376, 6430516, 9652747, [id number], [id number] #### [facility] [address] [place] [address] Eosinophils/100 WBC (Bld) 1.7 % Normal 0.0-8.0 [facility] Comment on above: Order Comment: Order Added by Discern Expert. Performed By: #### 2 104347, 4114127, 1274407, [id number], [id number] #### [facility] [address] [place] [address] Eosinophils/Leukocyt es Auto (Bld) [Pure # fraction] 0.1 E9/L Normal 0.0-0.5 [facility] Comment on above: Order Comment: Order Added by Discern Expert. Performed By: #### 2 236132, 0460926, 5786599, 78677019, [id number] #### [facility] [address] [place] [address] Lymphocytes/100 WBC (Bld) 24.5 % Normal 14.0-50.0 [facility] Comment on above: Order Comment: Order Added by Discern Expert. Performed By: #### 2 282693, 5576412, 3967886, 63408407, 10731269 #### [facility] [address] [place] [address] Lymphocytes/Leukocyt es Auto (Bld) [Pure # fraction] 1.6 E9/L Normal 1.0-4.0 [facility] Comment on above: Order Comment: Order Added by Discern Expert. Performed By: #### 2 164687, 7571385, 1026110, 60844765, [id number] #### [facility] [address] [place] [address] Monocytes/100 WBC (Bld) 6.1 % Normal 4.0-14.0 [facility] Comment on above: Order Comment: Order Added by Discern Expert. Performed By: #### 2 687435, 3030219, 3293001, 23780374, 60313824 #### [facility] [address] [place] [address] Monocytes/Leukocytes Auto (Bld) [Pure # fraction] 0.4 E9/L Normal 0.2-1.0 [facility] Comment on above: Order Comment: Order Added by Discern Expert. Performed By: #### 2 881333, 6758680, 4153601, 45333983, 11474395 #### [facility] [address] [place] [address] Neutrophils/100 WBC (Bld) 67.4 % Normal 36.0-75.0 [facility] Comment on above: Order Comment: Order Added by Discern Expert. Performed By: #### 2 463121, 8528308, 7907685, 36819649, 65390646 #### [facility] [address] [place] [address] Neutrophils/Leukocyt es Auto (Bld) [Pure # fraction] 4.5 E9/L Normal 2.0-7.5 [facility] Comment on above: Order Comment: Order Added by Discern Expert. Performed By: #### 2 471298, 9921087, 9783917, 34338789, 80493053 #### [facility] [address] [place] [address] CBC w/ Auto Diffon 0 Erythrocyte distribution width (RBC) [Ratio] 12.8 % Normal 10.9-14.2 [facility] Comment on above: Performed By: #### 2 959506, 2834956, 3384712, 73612214, 56585243 #### [facility] [address] [place] [address] Hematocrit (Bld) [Volume fraction] 40.9 % Normal 34.0-46.0 [facility] Comment on above: Performed By: #### 2 183054, 5081405, 9498666, 11321454, 75554867 #### [facility] [address] [place] [address] Hemoglobin (Bld) [Mass/Vol] 14.1 g/dL Normal 12.0-16.0 [facility] Comment on above: Performed By: #### 2 703158, 5457759, 7794427, 30602418, 60398841 #### [facility] [address] [place] [address] MCH (RBC) [Entitic mass] 32.6 pg Normal 27.0-34.0 [facility] Comment on above: Performed By: #### 2 945469, 7000074, 3453719, 11112638, 50842272 #### [facility] [address] [place] [address] MCHC (RBC) [Mass/Vol] 34.5 g/dL Normal 31.4-36.0 [facility] Comment on above: Performed By: #### 2 967982, 7350555, 6818182, 41141152, 85006264 #### [facility] [address] [place] [address] MCV (RBC) [Entitic vol] 94.5 fL Normal 80.0-100.0 [facility] Comment on above: Performed By: #### 2 074024, 1392775, 3880380, 80296986, 43728890 #### [facility] [address] [place] [address] Platelet mean volume (Bld) [Entitic vol] 7.2 fL Normal 6.4-10.8 [facility] Comment on above: Performed By: #### 2 075547, 8591670, 2463450, 28314717, 33784555 #### [facility] [address] [place] [address] Platelets (Bld) [#/Vol] 220.0 E9/L Normal 150.0-500.0 [facility] Comment on above: Performed By: #### 2 198049, 0686815, 9483736, 49378316, 98542283 #### [facility] [address] [place] [address] RBC (Bld) [#/Vol] 4.3 E12/L Normal 4.3-5.9 [facility] Comment on above: Performed By: #### 2 399740, 8683680, 4565888, 41161895, 30032577 #### [facility] [address] [place] [address] WBC corrected for nucl RBC Auto (Bld) [#/Vol] 6.6 E9/L Normal 4.0-11.0 [facility] Comment on above: Performed By: #### 2 246201, 4949470, 2529229, 65652849, 05462630 #### [facility] [address] [place] [address] CMPon 06-10-2020 Albumin [Mass/Vol] 1.3 g/dL Normal 1.1-2.2 [facility] Comment on above: Performed By: #### 2 119581, 2365597, 6609898, 39267009, 36600769 #### [facility] [address] [place] [address] Albumin [Mass/Vol] 4.0 g/dL Normal 3.3-5.0 [facility] Comment on above: Performed By: #### 2 087899, 8481805, 0424431, 91063470, 96095269 #### [facility] [address] [place] [address] ALP [Catalytic activity/Vol] 34 Int._Unit/L Normal 21-98 [facility] Comment on above: Performed By: #### 2 691353, 8379258, 1975829, 80095958, 07402553 #### [facility] [address] [place] [address] ALT No additional P-5'-P [Catalytic activity/Vol] 11 Int._Unit/L Normal 6-46 [facility] Comment on above: Performed By: #### 2 266136, 9632641, 1258457, 60683388, 95961551 #### [facility] [address] [place] [address] AST [Catalytic activity/Vol] 12 Int._Unit/L Normal 5-43 [facility] Comment on above: Performed By: #### 2 996566, 0894712, 7425846, 71767176, 59077224 #### [facility] [address] [place] [address] Bilirubin [Mass/Vol] 0.8 mg/dL Normal 0.0-1.1 [facility] Comment on above: Performed By: #### 2 472499, 8565280, 8073901, 08874121, 13944464 #### [facility] [address] [place] [address] Creatinine [Mass/Vol] 0.6 mg/dL Normal 0.5-1.3 [facility] Comment on above: Performed By: #### 2 852279, 2931226, 9830046, 78937772, [id number] #### [facility] [address] [place] [address] Globulin (S) [Mass/Vol] 3.0 g/dL Normal 1.4-4.0 [facility] Comment on above: Performed By: #### 2 351816, 5480109, 5646067, 52491025, [id number] #### [facility] [address] [place] [address] Protein [Mass/Vol] 7.0 g/dL Normal 6.0-7.8 [facility] Comment on above: Performed By: #### 2 355751, 4892720, 4998184, 49832190, 33801305 #### [facility] [address] [place] [address] Urea nitrogen [Mass/Vol] 9 mg/dL Normal 5-21 [facility] Comment on above: Performed By: #### 2 285385, 6163441, 6924805, 29773877, 88373283 #### [facility] [address] [place] [address] Urea nitrogen/Creatinine [Mass ratio] 15 No Units Normal 10-20 [facility] Comment on above: Performed By: #### 2 348295, 7402722, 2502032, 03522190, [id number] #### [facility] [address] [place] [address] Anion gap [Moles/Vol] 13 mmol/L Normal 6-16 [facility] Comment on above: Performed By: #### 2 722557, 1598657, 0884275, 69904733, 77293458 #### [facility] [address] [place] [address] Calcium [Mass/Vol] 9.2 mg/dL Normal 8.9-11.1 [facility] Comment on above: Performed By: #### 2 814208, 3951872, 2795395, 63101034, 67016099 #### [facility] [address] [place] [address] Chloride [Moles/Vol] 104 mmol/L Normal 101-111 [facility] Comment on above: Performed By: #### 2 932370, 9994989, 1050498, 84331681, 84695922 #### [facility] [address] [place] [address] CO2 [Moles/Vol] 25 mmol/L Normal 21-31 [facility] Comment on above: Performed By: #### 2 146300, 5963857, 6761708, 53880072, 41871313 #### [facility] [address] [place] [address] Glucose [Mass/Vol] 84 mg/dL Normal 55-199 [facility] Comment on above: Result Comment: If t his glucose result represents a fasting glucose, interpretation should refer to the following reference range: 55-99 mg/dL Performed By: #### 2 256692, 9935985, 9614480, 06745237, 20667830 #### [facility] [address] [place] [address] Potassium [Moles/Vol] 4.1 mmol/L Normal 3.5-5.3 [facility] Comment on above: Performed By: #### 2 510873, 2123701, 1746951, 17480536, 96924536 #### [facility] [address] [place] [address] Sodium [Moles/Vol] 138 mmol/L Normal 135-145 [facility] Comment on above: Performed By: #### 2 315104, 9006918, 0941362, 04214020, 00232628 #### [facility] [address] [place] [address] Consent for Treatmenton Consent for Treatment [id number] 0CD:127 Normal [facility] D-Dimeron 06-10-2020 Fibrin D-dimer FEU (PPP) [Mass/Vol] <215 Low 215-500 [facility] Comment on above: Result Comment: This D-Dimer [...] infections Liver cirrhosis Performed By: #### 2 017978 #### [facility] [address] [place] [address] Discharge Instructionson Discharge Instructions [id number] 0CD:127 Normal [facility] ED Clinical Summaryon 2019 ED Clinical Summary [address] [address] ED Clinical Summary Person Information Name: ELOINA KU Riya/[facility] Age: 25 Years : 1995 Sex: Female Language: Moroccan PCP: JAYSHREE LEIJA CNP Marital Status: Single Phone: [phone] MRN: Visit Id: Visit Reason: Palpitations; Anxiety; SOB- SEEN IN [facility] TOLD SHE HAS PNUEMONIA Speciality: Acuity: 3 [...] 06/10/2020 16:44:17 06/10/2020 16:44:17 06/10/2020 16:44:17 ADDRESS: [facility] [address] [place] [address] NOTES: MEDICAL INFORMATION: Prescriptions Given: Medications to [...] When: JAYSHREE LEIJA [address] [place] [address] [phone] Business (1) Within 2 to 3 days Comments: Return to ED if symptoms worsen. Cut back on Caffeine. You will be contacted to get a 48 hour heart monitor set up. Call your Pin Cleaner to discuss your frequent urination. DIAGNOSIS: 1:Palpitations Normal [facility] ED Patient Education Noteon 06-10-2020 ED Patient [...] Document Reviewed: 11/16/2012 ExitCare? Patient Information ?2015 [place] DEPT.. This information is not intended to replace advice given to you by your health care provider. Make sure you discuss any questions you have with your health care provider. Normal [facility] ED Patient Summaryon 020 ED Patient Summary [place] [id number] Patient Discharge Instructions Person Information Name: ELOINA KU Age: 25 Years Arrival Date: 06/10/2020 13:38:02 Discharge Diagnosis: 1:Palpitations Primary Care Physician: JAYSHREE LEIJA CNP Provider Information Primary Provider: Ilana Ornelas DO Advanced Data Clerk:None The exam and treatment you received in the Emergency Department were for an urgent problem and are not intended as complete care. It is important that you follow up with a doctor, nurse practitioner, or physician?s administrative assistant for ongoing care. If your symptoms [...] When: JAYSHREE LEIJA [address] [place] [address] [phone] Business (1) Within 2 to 3 days Comments: Return to ED if symptoms worsen. Cut back on Caffeine. You will be contacted to get a 48 hour heart monitor set up. Call your Pin Cleaner to discuss your frequent urination. In the event that this physician does not participate in your insurance network, please consult with your insurance company to find a nearby participating provider. Patient Education Materials: Palpitations A MESSAGE TO ALL PATIENTS REGARDING OPIOIDS PRESCRIPTION OPIOIDS: WHAT YOU NEED TO KNOW Prescription opioids can be used to help relieve ieuxyjni-gd-entkwp pain and are often prescribed following a [...] struggling with addiction, tell your health medicare contact specialist and ask for guidance or call [facility]S National Helpline at 6-857-772-AYSP. m Source: US Department of Health and Human Services/Center for Disease Control & Prevention [facility] Medications Given: Medication Dose Route [...] Information: SHAWNEE Wolfe Thank you for choosing [facility] Patient Education Materials: Palpitations A palpitation is [...] Document Reviewed: 11/16/2012 ExitCare? Patient Information ?2015 [place] DEPT.. This information is not intended to replace advice given to you by your health care provider. Make sure you discuss any questions you have with your health care provider. ELMIRA Horton BRITTANY NICOLE , have received the following patient education materials/instructions and have verbalized understanding: Patient Education Materials: Palpitations Follow-up Instructions: With: Address: When: JAYSHREE LEIJA [address] [place] [address] [phone] Business (1) Within 2 to 3 days Comments: Return to ED if symptoms worsen. Cut back on Caffeine. You will be contacted to get a 48 hour heart monitor set up. Call your Pin Cleaner to discuss your frequent urination. Patient Signature Date Clinician/Nurse Signature ___ Date 06/10/2020 16:44:19 Normal [facility] Troponin 0 Hr.on 06-10-2020 Troponin I.cardiac [Mass/Vol] ng/mL Low 10.10-27.10 [facility] Comment on above: Result Comment: The 95% CI (Confidence Interval) PPV (Positive Predictive Value) for myocardial infarction in females is 38 pg/mL, in males 51 pg/mL. The results should be used in conjunction with clinical conditions of myocardial infarction. (Access High Sensitivity Troponin I Instructions For Use, Eddie Haubstadt, May 2018) Performed By: #### 2 140940, 0725486, 5101944, 16354334, [id number] #### [facility] [address] [place] [address] U BetaHcg Qualon 06-10-2020 HCG.beta subunit (U) [Moles/Vol] Negative Normal [facility] Comment on above: Performed By: #### 2 4146945, 71085431 #### [facility] [address] [place] [address] UA With Cult Reflexon 2019 Bilirubin Ql (U) Negative Normal Negative [facility] Comment on above: Performed By: #### 2 3919660, [id number] #### [facility] [address] [place] [address] Clarity (U) CLEAR Normal Clear [facility] Comment on above: Performed By: #### 2 4132380, [id number] #### [facility] [address] [place] [address] Color (U) YELLOW Normal Yellow [facility] Comment on above: Performed By: #### 2 4127930, [id number] #### [facility] [address] [place] [address] Epithelial cells.squamous LM.HPF (Urine sed) [#/Area] 0-2 Normal 0-2 [facility] Comment on above: Performed By: #### 2 9758880, 46597160 #### [facility] [address] [place] [address] Glucose Test strip (U) [Mass/Vol] Negative Normal Negative [facility] Comment on above: Performed By: #### 2 9896435, 53096012 #### [facility] [address] [place] [address] Hemoglobin Ql (U) Negative Normal Negative [facility] Comment on above: Performed By: #### 2 7188334, 70885399 #### [facility] [address] [place] [address] Ketones (U) [Mass/Vol] Negative Normal Negative [facility] Comment on above: Performed By: #### 2 4062422, 15093406 #### [facility] [address] [place] [address] [place].plasma/Lithi um.RBC (Bld) [Mass ratio] 0-3 Normal 0-3 [facility] Comment on above: Performed By: #### 2 5390339, 53532532 #### [facility] [address] [place] [address] Mucus Ql (Urine sed) TRACE Normal [facility] Comment on above: Performed By: #### 2 6255064, 56044304 #### [facility] [address] [place] [address] Nitrite Ql (U) Negative Normal Negative [facility] Comment on above: Performed By: #### 2 8302744, 45307493 #### [facility] [address] [place] [address] pH (U) 7.5 [pH] 5.0-9.0 [facility] Comment on above: Performed By: #### 2 2646282, 96984286 #### [facility] [address] [place] [address] Protein (U) [Mass/Vol] Negative Normal Negative [facility] Comment on above: Performed By: #### 2 3744832, 10672653 #### [facility] [address] [place] [address] Specific gravity (U) [Rel density] 1.010 1.005-1.030 [facility] Comment on above: Performed By: #### 2 2744781, 61227625 #### [facility] [address] [place] [address] UA Spec Desc Random Urine Normal [facility] Comment on above: Performed By: #### 2 1006067, 57875659 #### [facility] [address] [place] [address] Urobilinogen Qn (U) 0.2 {Maria C'U}/dL Normal 0.0-1.0 [facility] Comment on above: Performed By: #### 2 4463899, 48571605 #### [facility] [address] [place] [address] WBC Auto Ql (U) Negative Normal Negative [facility] Comment on above: Performed By: #### 2 2232070, 24066751 #### [facility] [address] [place] [address] WBC LM.HPF (Urine sed) [#/Area] 0-5 Normal 0-5 [facility] Comment on above: Performed By: #### 2 7771524, 91096722 #### [facility] [address] [place] [address] XR Chest 2 Viewson 0 XR Chest [...] Payan DO Transcribed by: KARLEY Technologist: LAWRENCE Normal [facility] eGFRon 06-10-2020 GFR/1.73 sq M predicted among blacks MDRD (S/P/Bld) [Vol rate/Area] mL/min/{1.73_m2} Normal >=59 [facility] Comment on above: Order Comment: Order added by Discern Expert. Result Comment: eGFR is race adjusted. AA=. Performed By: #### 2 494855, 3464805, 7451066, 05827323, 01580146 #### [facility] [address] [place] [address] GFR/1.73 sq M predicted among non-blacks MDRD (S/P/Bld) [Vol rate/Area] mL/min/{1.73_m2} Normal >=59 [facility] Comment on above: Order Comment: Order added by Discern Expert. Result Comment: [employer] Supervisor shyam kidney disease could be indicated at eGFR's of less than 60 mL/min/1.73m2. Kidney failure is indicated at less than 15 mL/min/1.73m2. Performed By: #### 2 160087, 6862527, 3107901, 52873402, 23023210 #### [facility] [address] [place] [address] Vital Signs Date Time Vital Sign Value Performing Clinician Facility 07-22-2024 15:12-0400 Body mass index (BMI) [Ratio] 25.58 kg/m2 [employer] Work Phone: [facility] [employer] 07-22-2024 15:12-0400 Body weight 67.59 kg [employer] Work Phone: [facility] [employer] 07-22-2024 15:12-0400 Diastolic blood pressure 64 mm[Hg] [employer] Work Phone: [facility] 07-22-2024 15:12-0400 Systolic blood pressure 108 mm[Hg] [employer] Work Phone: [facility] 07-15-2024 14:52-0400 Body mass index (BMI) [Ratio] 25.23 kg/m2 Jamil Huntzio DO Work Phone: [facility] 07-15-2024 14:52-0400 Body weight 66.68 kg Jamil Shultzo DO Work Phone: [facility] 07-15-2024 14:52-0400 Diastolic blood pressure 68 mm[Hg] Jamiljackie Shultzo DO Work Phone: [facility] 07-15-2024 14:52-0400 Systolic blood pressure 110 mm[Hg] Jamiljackie Shultzo DO Work Phone: [facility] 12-11-2022 00:05-0500 Body weight 71.[address] JAMIL PONCE . [facility] Comment on above: Performed By: #### UACSTOMÁS BRISCOE #### [facility] [address] [place] [address] Dr. Kelly Montilla Encounters Encounter Date Encounter Type Care Provider Facility Start: 07-22-2024 End: 07-22-2024 Office outpatient visit 15 minutes Jamil Shultzo DO Work Phone: [facility] Comment on above: Pre-op examination; Request for sterilization; Menorrhagia with regular cycle; Abnormal uterine bleeding (AUB); Pelvic pain in female Start: 07-22-2024 End: 07-22-2024 Preprocedural examination done Jamiljackie Ponce [employer] Work Phone: [facility] Start: 07-22-2024 End: 07-22-2024 ambulatory JAMIL SHULTZO Not Available Start: 07-16-2024 End: 07-16-2024 ambulatory PHYSICIAN NO [facility] Work Phone: Start: 07-16-2024 End: 07-16-2024 Departed Referred PHYSICIAN NO [facility] Start: 07-15-2024 End: 07-15-2024 Patient encounter procedure Jamil Shultzo DO Work Phone: [facility] Comment on above: Menorrhagia with reg ular cycle Start: 07-15-2024 End: 07-15-2024 ambulatory JAMIL ROSARIO Not Available Start: 07-11-2024 End: 07-11-2024 Clinisync Result Encounter Jamil Rosario DO Work Phone: [facility] Unsolicited Start: 07-11-2024 End: 07-11-2024 Clinisync Result Encounter Jamil Rosario DO Work Phone: [facility] Unsolicited Start: 06-24-2024 End: 06-24-2024 ambulatory JAMIL ROSARIO Not Available Start: 01-03-2024 End: 01-03-2024 ambulatory JAMIL ROSARIO Not Available Start: 11-01-2023 End: 11-01-2023 ambulatory JAMIL ROSARIO Not Available Start: 02-11-2023 End: 02-13-2023 ambulatory [...] [Identifier] in Cervix by Cyto stain Jamil Ponce DO Work Phone: Start: 11-03-2022 Microscopic observat ion [Identifier] in Cervix by Cyto stain Jamil Ponce DO Work Phone: Plan of Treatment Date Care Activity Detail Author Start: 01-02-2027 Screening for malign ant neoplasm of cervix [facility] Start: 11-03-2025 Screening for malign ant neoplasm of cervix [facility] Start: 01-08-2025 End: 01-08-2025 Patient encounter procedure 01/08/2025 11:00 AM EDT Office Visit [facility] [address] [place] [address] Jamil Ponce, DO [address] [place], [place] [address] [facility] Start: 07-22-2024 End: 07-22-2024 Patient encounter procedure 07/22/2024 2:40 PM EDT Consult [facility] [address] [place] [address] Jamil Ponce, DO [address] [place], [place] [address] [facility] Start: 07-15-2024 End: 07-15-2024 Patient encounter procedure 07/15/2024 2:30 PM EDT Procedure Visit [facility] [address] [place] [address] Jamil Ponce, DO [address] [place], [place] [address] [facility] Start: 06-02-2024 Influenza vaccination Influenza Vacc ine (#1) [facility] Start: 02-15-2024 Screening for malign ant neoplasm of cervix HPV/Cotest [facility] Start: 05-23-2023 ambulatory Ambulatory Facility:H 1 Tissue exam Tissue exam Path ology and Cytology Routine Menorrhagia with regular cycle Ordered: 07/15/2024 [facility] Work Phone: Comment on above: Ordered: 07/15/2024 Payers Date Payer Category Payer Medicaid [employer] [facility] [facility] [place] [id number] 2023-Present [address] [place] [address] [id number] 2023 [facility] Health [facility] [id number] 1994 Unknown [id number] 2.16840.1.231357.3.579.2. 59 1995 Unknown [id number] 2.16840.1.494019.3.579.2. 59 1994 Unknown [id number] 2.16840.1.495757.3.579.2. 59 1994 Unknown [id number] 2.16.840.1.030404.3.579.2. 59 1994 Unknown [id number] 2.16.840.1.327485.3.579.2. 59 1994 Unknown [id number] 2.16.840.1.127144.3.579.2. 59 1994 Unknown [id number] 2.16.840.1.533155.3.579.2. 593 1994 Unknown [id number] 2.16.840.1.840160.3.579.2. 593 1994 Unknown [id number] 2.16.840.1.487393.3.579.2. 593 1994 Unknown [id number] 2.16.840.1.495175.3.579.2. 593 1994 Unknown [id number] 2.16.840.1.741384.3.579.2. 593 1994 Unknown [id number] 2.16.840.1.428625.3.579.2. 1259 1994 Unknown [id number] 2.16.840.1.426534.3.579.2. 1259 1994 Unknown [id number] 2.16.840.1.660379.3.579.2. 1259 1994 Unknown [id number] 2.16840.1.089813.3.579.2. 1259 1994 Unknown [id number] 2.16.840.1.970680.3.579.2. 1259 1959 Self-pay 1960 Unknown [id number] 1959 Unknown [id number] Unknown [id number] 2.16.840.1.156762.3.579.2. 593 Social History Date Type Detail Facility Start: [facility]11-2023 [facility] History of tobacco use Cigarette Smoker [facility] Start: 06-24-2024 End: 07-22-2024 Alcoholic beverage intake Lifetime non-drinker (finding) [facility] Start: 01-03-2024 History of Social function [facility] Start: 01-03-2024 Tobacco use panel [facility] Start: 03-11-2023 Alcohol Comment Caffeine: 2-3 cups/d ay [facility] Start: 1995 Sex assigned at Not on file [facility] Start: 1995 Sex Assigned At Female F [facility] History of Present illness Narrative 07-22-2024 Iris De - 07/22/2024 2:40 PM EDT Note Date & Type Note Facility 07-22-2024 History of Presen t illness Narrative Reason for Appointment: Patient ID: Eloina Ku is a 29 y.o. female who presents for Pre-op Visit Patient presents today for Pre Op appointment. Patient is scheduled to undergo Da Mehrdad assisted Bilateral Laparoscopic Salpingectomy and Endometrial Ablation with Deisi on 08/16/[address] Ponce at [facility]. MEDICATIONS Current Outpatient Medications Medication Instructions etonogestrel-eluting [...] SYSTEMS Review of Systems: Review of Systems Constitutional: Negative. HENT: Negative. Eyes: Negative. Respiratory: Negative. Cardiovascular: Negative. Gastrointestinal: Negative. Genitourinary: Positive for menstrual problem and pelvic pain. Musculoskeletal: Negative. Skin: Negative. Neurological: Negative. All other systems reviewed and are negative. Hematological: Negative. Endocrine: Negative. Allergic/Immunologic: Negative. OBJECTIVE Objective: Physical Exam Constitutional: Appearance: Normal appearance. She is well-developed. Cardiovascular: Rate and Rhythm: Normal rate and [...] nursing note reviewed. Exam conducted with a director of quantitative research present. Vitals: Estimated body mass index is 25.23 kg/m as calculated from the following: Height as of 06/21/23: 5' 4 . Weight as of 07/15/24: 147 lb. BP: No LMP recorded. Patient has had an implant. ASSESSMENT & PLAN ICD-10-CM 1. Pre-op examination Z01.818 2. Request for sterilization Z30.2 3. Menorrhagia with regular cycle N92.0 4. Abnormal uterine bleeding (AUB) N93.9 5. Pelvic pain in female R10.2 Pre Op: Patient is doing well but has desire for sterilization and has complaints of bleeding and pelvic pain. Patient has tried hormone therapy in the past but all attempts to subside patients issues of bleeding have failed. I have discussed conservative management vs. surgical management with the patient in detail and patient desires surgical management at this time. Patient has voiced understanding that a Bilateral Salpingectomy is considered to be permanent and patient will undergo Da Mehrdad assisted Bilateral Laparoscopic Salpingectomy & Endometrial Ablation with Deisi on 08/16/2024. Surgical consents were signed, mmc was reviewed, and patient is to proceed to [facility] OR. Follow Up: Patient is to follow up between 1-2 weeks post op to assess proper healing and recovery from procedure. Documented by Adelita Warren LPN on behalf of: Jamil Ponce DO documented in this encounter [facility] History of Present illness Narrative 07-15-2024 Adelita [...] nursing note reviewed. Exam conducted with a director of quantitative research present. Vitals: Estimated body mass index is [...] Jamil Ponce DO documented in this encounter [facility] Evaluation note Note Date & Type Note Facility Evaluation note No assessment information [facility] Work Phone: Evaluation note Note Date & Type Note Facility Evaluation note Diagnosis Menorrhagia with regular cycle documented in this encounter [facility] Evaluation note Note Date & Type Note Facility Evaluation note Diagnosis Pre-op examination Request for sterilization Menorrhagia with regular cycle Abnormal uterine bleeding (AUB) Pelvic pain in female Unspecified symptom associated with female genital organs documented in this encounter [facility] Summary Purpose Family History No Family History Records FoundNo Family History Records FoundNo Family History Records FoundNo Family History Records Found Advance Directives No Advanced Directives Records FoundNo Advanced Directives Records FoundNo Advanced Directives Records FoundNo Advanced Directives Records Found Additional Source Comments INFORMATION SOURCE (unrecogn ized section and content) DATE CREATED AUTHOR 06/12/[address] [facility] DATE CREATED AUTHOR AUTHOR'S ORGANIZ ATION 02/15/2023 [facility] DATE CREATED AUTHOR AUTHOR'S ORGANIZ ATION 07/24/2024 [facility] EPIC DATE CREATED AUTHOR AUTHOR'S ORGANIZ ATION 07/25/2024 [facility] Care Teams (unrecognized sec tion and content) Energy Scheduler Relationship Specialty Start Date End Date Mundo Kendrick MD [address] [place] [address] PCP - General Family Medicine 02/21/23 Jamil Ponce DO [address] [place] [address] PCP - [facility] 01/01/24 Team Status: Active Member Role Status Dates PHYSICIAN NO FAMILY Primary Care Provider Active Team Status: Inactive Member Role Status Dates PHYSICIAN NO FAMILY Primary Care Provider Active Start: July 16, 2024 End: July 16, 2024 Jamil Ponce DO Attending Provider Active Start : July 16, 2024 End: July 16, 2024 Energy Scheduler Relationship Specialty Start Date End Date Mundo Kendrick MD [address] [place] [address] PCP - General [facility] 02/21/23 Jamil Ponce DO [address] [facility] [place] [address] PCP [facility] 01/01/24 Energy Scheduler Relationship Specialty Start Date End Date Mundo Kendrick MD [address] [place] [address] PCP - General [facility] 02/21/23 Jamil Ponce DO [address] [place] [address] PCP - [facility] 01/01/24 Goals (unrecognized section and content) Goals may be documented in a n alternate section Reason for Visit (unrecogniz ed section and content) Reason Comments Endometrial biopsy Reason Comments Pre-op Visit FOR RECORDS PERTAINING TO PATIENTS WHO ARE [...] ON THE PRIMARY CLINICAL RECORDS. [facility]. provides no warranty or guarantee of the accuracy or completeness of information in this document.
== END 2024-08-07 08:59 | disposition home or self-care (01) ==
LOC: PST 08:59
PROVIDERS: PCP Nurse Practitioner Family; Visit Provider Obstetrics & Gynecology
DX: Z01.818 Encounter for other preprocedural examination (principal); Z30.2 Encounter for sterilization; N92.0 Excessive and frequent menstruation with regular cycle; N93.9 Abnormal uterine and vaginal bleeding, unspecified; R10.2 Pelvic and perineal pain

== ENCOUNTER 2024-08-16 07:47 | Day surgery (SDC) | payer OTHER, SELFPAY ==
[2024-08-07 09:31] VITALS: BP 109/62; PULSE 55; TEMP 36.4; O2SAT 99; BMI 25.0
[2024-08-16] VITALS (19 sets, daily range): BP systolic 110–127; BP diastolic 63–80; PULSE 0–85; TEMP 36.2–36.5; O2SAT 97–100; BMI 25.1
--- OUTSIDE RECORDS SUMMARY | 2024-08-16 07:50 | XMS_ITS | CCD ---
Author Organization [facility] Care Team Providers Care Sap Technical Developer Name Role Phone ROSARIO ., DR NEGRON [...] Unavailable ROSARIO ., DR NEGRON Admitting Unavailable [place], DR MICHELLE Orellana Consulting Unavailable ROSARIO ., [...] Aroldo HAGAN, Mundo M Primary Care Provider [phone] Rosario DO, Jamil Unavailable NO FAMILY, [...] (1 source) Morphine Drug Allergy 8 [facility] (1 source) Penicillins Drug allergy (disorder) 5 [facility] (3 sources) Amoxicillin Drug Allergy 3 Hives [facility] Work Phone: (3 sources) Penicillins Propensity to adverse reactions 3 [facility] Healthcare Medications Current Medications Medication Drug [...] Interpretation and review of laboratory results Normal [facility] Healthcare Preg Test, Ur Negative [facility] Healthcare Oscar 07-15-2024 L Specimen: [id number] Received: 07/16/24 Status: ELIGIO Harrell Num: [id number] Spec Type: Surgical Subm Dr: Jamil Ponce Tissues: A Endometrium - Biopsy (EMBX) Procedures: HE/2, Gross/Micro L4 Age/ Patient Sex Location Account Attending Physician ElmiraEloina loo 29/F LABELL [id number] Jamil Ponce SPEC NUM: [id number] RECD: 07/16/24 STATUS: ELIGIO JULIO CESAR NUM: [id number] CADENCE: 07/15/24- SUBM DR: Jamil Ponce ENTERED: 07/16/[address] [facility] [address]: Aiden,Lab SPEC TYPE: Surgical DEPT: KHURRAM ROBB ENTERED BY: [id number] RECV BY: [id number] ORDERED: HE/2, Gross/Micro L4 ORDERED: HE/2, Gross/Micro [...] Microscopic Description Examination is performed. CPT Codes 01194 ---- ---- Specimen: [id number] Received: 07/16/24 Status: ELIGIO Julio Cesar Num: [id number] Spec Type: Surgical Subm Dr: Jamil Ponce Tissues: A Endometrium - Biopsy (EMBX) Procedures: HE/2, Gross/Micro L4 ---- Patient: ElmiraEloina [id number] (Continued) ---- Signed (signature on file) Warren [...] mass] 31.8 pg 26.7 - 34.0 pg [facility] MCHC (RBC) [Mass/Vol] 34.0 g/dL 29.9 - 35.2 g/dL [facility] MCV (RBC) [Entitic vol] 93.6 fL 81.0 - 99.0 fL [facility] MONOCYTES ABSOLUTE AUTO 0.5 [facility] Monocytes/100 WBC (Bld) 8.1 % 1.7 - 12.0 % [facility] NEUTROPHILS ABSOLUTE AUTO 3.9 [facility] Neutrophils/100 WBC (Bld) 62.5 % 43.0 - 75.0 % [facility] Platelet mean volume (Bld) [Entitic vol] 9.8 fL 9.5 - 13.5 fL [facility] TBH EO # 0.1 [facility] TB PLT 210 [facility] RBC 4.50 [facility] WBC 6.[address] [facility] [address] Healthcare TYPE AND SCREENon 02-11-2023 TYPE AND SCREEN Negative Normal [facility] Comment on above: Performed By: #### V AGINT #### [facility] [address] [place] [address] Dr. Kelly Montilla CULTURE URINEon 02-08-2023 CULTURE URINE Culture Observations : LIGHT GROWTH OF MIXED GENITAL ALBAN. NO POTENTIAL PATHOGENS SEEN. Normal [facility] Comment on above: Performed By: #### V AGINT #### [facility] [address] [place] [address] Dr. Kelly Montilla UA (CLEAN/CATCH) DOPE HEATER/MICRO I F IND.on 02-08-2023 Bilirubin Ql (U) Negative Normal NEGATIVE [facility] Comment on above: Performed By: #### U ACSLUIS FELIPE UMICRO #### [facility] [address] [place] [address] Dr. Kelly Montilla Clarity (U) CLEAR Normal CLEAR [facility] Comment on above: Performed By: #### U ACSLUIS FELIPE UMICRO #### [facility] [address] [place] [address] Dr. Kelly Montilla Color (U) YELLOW Normal YELLOW The [facility] Comment on above: Performed By: #### U ACSLUIS FELIPE UMICRO #### [facility] [address] [address] [address] Kelly Montilla Glucose Ql (U) Negative Normal NEGATIVE [facility] Comment on above: Performed By: #### U ACSIND, UMICRO #### [facility] [address] [address] [address] Kelly Montilla Hemoglobin Ql (U) Negative Normal NEGATIVE [facility] Comment on above: Performed By: #### U ACSIND, UMICRO #### [facility] [address] [address] [address] Kelly Montilla Ketones Ql (U) Negative Normal NEGATIVE [facility] Comment on above: Performed By: #### U ACSIND, UMICRO #### [facility] [address] [address] [address] Kelly Montilla LEUKOCYTES SMALL Abnormal NEGATIVE [facility] Comment on above: Performed By: #### U ACSIND, UMICRO #### [facility] [address] [address] [address] Kelly Montilla Nitrite Ql (U) Negative Normal NEGATIVE [facility] Comment on above: Performed By: #### U ACSIND, UMICRO #### [facility] [address] [address] [address] Kelly Montilla pH (U) 7.5 [pH] Normal 5-9 [facility] Comment on above: Performed By: #### U ACSIND, UMICRO #### [facility] [address] [address] [address] Kelly Montilla SPEC GRAVITY 1.020 Normal 1.005-<=1.025 [facility] Comment on above: Performed By: #### U ACSIND, UMICRO #### [facility] [address] [address] [address] Kelly Montilla UA PROTEIN TRACE Normal NEGATIVE/ TRACE [facility] Comment on above: Performed By: #### U ACSIND, UMICRO #### [facility] [address] [address] [address] Kelly Montilla UR MICRO IND INDICATED Normal [facility] Comment on above: Performed By: #### U ACSIND, UMICRO #### [facility] [address] [address] [address] Kelly Montilla Urobilinogen Qn (U) 4 {Maria C'U}/dL Abnormal 0.2 - 1.0 The [facility] Comment on above: Performed By: #### U ACSIND, UMICRO #### [facility] [address] [address] [address] Kelly Montilla URINE MICROSCOPIC ONLYon BACTERIA SMALL Abnormal NONE SEEN The [facility] Comment on above: Performed By: #### U ACSIND, UMICRO #### [facility] [address] [address] [address] Kelly Montilla Bacteria identified Cx Nom (U) INDICATED Normal [facility] Comment on above: Performed By: #### U ACSIND, UMICRO #### [facility] [address] [place] [address] Dr. Kelly Montilla CAST NONE SEEN Normal NONE SEEN The [facility] Comment on above: Performed By: #### U ACSIND, UMICRO #### [facility] [address] [place] [address] Dr. Kelly Montilla Crystals LM Nom (Urine sed) NONE SEEN Normal NONE SEEN The [facility] Comment on above: Performed By: #### U ACSIND, UMICRO #### [facility] [address] [place] [address] Dr. Kelly Montilla Epithelial cells LM Ql (Urine sed) FEW Abnormal NONE SEEN /RARE [facility] Comment on above: Performed By: #### U ACSIND, UMICRO #### [facility] [address] [address] [address] Kelly Montilla MUCOUS TRACE Abnormal NONE SEEN The [facility] Comment on above: Performed By: #### U ACSIND, UMICRO #### [facility] [address] [place] [address] Dr. Kelly Montilla RBC 0-2 Normal 0-2 [facility] Comment on above: Performed By: #### U ACSIND, UMICRO #### [facility] [address] [place] [address] Dr. Kelly Montilla WBC 5-10 Abnormal NONE SEEN The [facility] Comment on above: Performed By: #### U TOMÁS JEAN #### [facility] [address] [place] [address] Dr. Kelly Montilla CBC AUTO DIFFon 01-27-2023 BASO # 0.0 103/ul Normal 0.0-0.1 [facility] Comment on above: Performed By: #### C BC #### [facility] [address] [place] [address] Dr. Kelly Montilla Basophils/100 WBC (Bld) 0.2 % Normal 0.2-2.0 [facility] Comment on above: Performed By: #### C BC #### [facility] [address] [place] [address] Dr. Kelly Montilla EO # 0.2 103/ul Normal 0.0-0.7 [facility] Comment on above: Performed By: #### C BC #### [facility] [address] [place] [address] Dr. Kelly Montilla Eosinophils/100 WBC (Bld) 1.6 % Normal 0.9-7.0 [facility] Comment on above: Performed By: #### C BC #### [facility] [address] [place] [address] Dr. Kelly Montilla Erythrocyte distribution width (RBC) [Ratio] 13.2 % Normal 11.0-15.0 [facility] Comment on above: Performed By: #### C BC #### [facility] [address] [place] [address] Dr. Kelly Montilla Hematocrit (Bld) [Volume fraction] 33.7 % Critically low 36.0-48.0 [facility] Comment on above: Performed By: #### C BC #### [facility] [address] [place] [address] Dr. Kelly Montilla Hemoglobin (Bld) [Mass/Vol] 11.5 g/dL Critically low 12.0-16.0 [facility] Comment on above: Performed By: #### C BC #### [facility] [address] [place] [address] Dr. Kelly Montilla IG # 0.03 10e3/ul Normal 0.00-0.03 [facility] Comment on above: Performed By: #### C BC #### [facility] [address] [place] [address] Dr. Kelly Montilla IG % 0.3 % Normal 0.0-0.5 [facility] Comment on above: Performed By: #### C BC #### [facility] [address] [place] [address] Dr. Kelly Montilla LYMPH # 2.0 103/ul Normal 1.2-3.8 [facility] Comment on above: Performed By: #### C BC #### [facility] [address] [place] [address] Dr. Kelly Montilla Lymphocytes/100 WBC (Bld) 21.4 % Normal 20.5-60.0 [facility] Comment on above: Performed By: #### C BC #### [facility] [address] [place] [address] Dr. Kelly Montilla MANUAL DIFF REQ NO Normal [facility] Comment on above: Performed By: #### C BC #### [facility] [address] [place] [address] Dr. Kelly Montilla MCH (RBC) [Entitic mass] 33.4 pg Normal 26.7-34.0 [facility] Comment on above: Performed By: #### C BC #### [facility] [address] [place] [address] Dr. Kelly Montilla MCHC (RBC) [Mass/Vol] 34.1 g/dL Normal 29.9-35.2 [facility] Comment on above: Performed By: #### C BC #### [facility] [address] [place] [address] Dr. Kelly Montilla MCV (RBC) [Entitic vol] 98.0 fL Normal 81.0-99.0 [facility] Comment on above: Performed By: #### C BC #### [facility] [address] [place] [address] Dr. Kelly Montilla MONO # 0.6 103/ul Normal 0.3-0.8 [facility] Comment on above: Performed By: #### C BC #### [facility] [address] [place] [address] Dr. Kelly Montilla Monocytes/100 WBC (Bld) 6.4 % Normal 1.7-12.0 [facility] Comment on above: Performed By: #### C BC #### [facility] [address] [place] [address] Dr. Kelly Montilla NEUT # 6.6 103/ul Critically high 1.4-6.5 [facility] Comment on above: Performed By: #### C BC #### [facility] [address] [place] [address] Dr. Kelly Montilla Neutrophils/100 WBC (Bld) 70.1 % Normal 43.0-75.0 [facility] Comment on above: Performed By: #### C BC #### [facility] [address] [place] [address] Dr. Kelly Montilla Platelet mean volume (Bld) [Entitic vol] 9.3 fL Critically low 9.5-13.5 [facility] Comment on above: Performed By: #### C BC #### [facility] [address] [place] [address] Dr. Kelly Montilla PLT 203 103/ul Normal 150-450 [facility] Comment on above: Performed By: #### C BC #### [facility] [address] [place] [address] Dr. Kelly Montilla RBC 3.44 106/ul Critically low 4.20-5.40 [facility] Comment on above: Performed By: #### C BC #### [facility] [address] [place] [address] Dr. Kelly Montilla WBC 9.4 103/ul Normal 4.0-11.0 [facility] Comment on above: Performed By: #### C BC #### [facility] [address] [place] [address] Dr. Kelly Montilla GLUCOSE - 1HRon 01-27-2023 Glucose [Mass/Vol] 73 mg/dL Critically low 74-106 Th e [facility] Comment on above: Performed By: #### V AGINT #### [facility] [address] [place] [address] Dr. Kelly Montilla AMNISUREon 12-24-2022 AMNISURE Negative Normal NEGATIVE [facility] Comment on above: Performed By: #### V AGINT #### [facility] [address] [place] [address] Dr. Kelly Montilla CULTURE URINEon 12-24-2022 CULTURE URINE Culture Observations : LIGHT GROWTH OF MIXED GENITAL ALBAN. NO POTENTIAL PATHOGENS SEEN. Normal The [facility] Comment on above: Performed By: #### U RCX #### [facility] [address] [place] [address] Dr. Kelly Montilla UA (CLEAN/CATCH) DOPE HEATER/MICRO I F IND.on 12-24-2022 Bilirubin Ql (U) Negative Normal NEGATIVE [facility] Comment on above: Performed By: #### U ACSIND, UMICRO #### [facility] [address] [place] [address] Dr. Kelly Montilla Clarity (U) CLEAR Normal CLEAR [facility] Comment on above: Performed By: #### U ACSIND, UMICRO #### [facility] [address] [place] [address] Dr. Kelly Montilla Color (U) YELLOW Normal YELLOW [facility] Comment on above: Performed By: #### U ACSIND, UMICRO #### [facility] [address] [place] [address] Dr. Kelly Montilla Glucose Ql (U) Negative Normal NEGATIVE [facility] Comment on above: Performed By: #### U ACSIND, UMICRO #### [facility] [address] [place] [address] Dr. Kelly Montilla Hemoglobin Ql (U) Negative Normal NEGATIVE The [facility] Comment on above: Performed By: #### U ACSIND, UMICRO #### [facility] [address] [place] [address] Dr. Kelly Montilla Ketones Ql (U) Negative Normal NEGATIVE [facility] Comment on above: Performed By: #### U ACSLUIS FELIPE UMICRO #### [facility] [address] [address] [address] Kelly Montilla LEUKOCYTES SMALL Abnormal NEGATIVE [facility] Comment on above: Performed By: #### U ACSLUIS FELIPE, UMICRO #### [facility] [address] [address] [address] Kelly Montilla Nitrite Ql (U) Negative Normal NEGATIVE [facility] Comment on above: Performed By: #### U ACSLUIS FELIPE UMICRO #### [facility] [address] [address] [address] Kelly Montilla pH (U) 6.0 [pH] Normal 5-9 [facility] Comment on above: Performed By: #### U ACSLUIS FELIPE ICRO #### [facility] [address] [place] [address] Dr. Kelly Montilla SPEC GRAVITY 1.025 Normal 1.005-<=1.025 [facility] Comment on above: Performed By: #### U ACSLUIS FELIPE ICRO #### [facility] [address] [place] [address] Dr. Kelly Montilla UA PROTEIN Negative Normal NEGATIVE/ TRACE The [facility] Comment on above: Performed By: #### U TED ICRO #### [facility] [address] [address] [address] Kelly Montilla UR MICRO IND INDICATED Normal [facility] Comment on above: Performed By: #### U TED UMICRO #### [facility] [address] [address] [address] Kelly Montilla Urobilinogen Qn (U) 1.0 {Maria C'U}/dL Normal 0.2 - 1. 0 [facility] Comment on above: Performed By: #### U TED ICRO #### [facility] [address] [place] [address] Dr. Kelly Montilla URINE MICROSCOPIC ONLYon BACTERIA MODERATE Abnormal NONE SEEN The [facility] Comment on above: Performed By: #### U ACSLUIS FELIPE UMICRO #### [facility] [address] [address] [address] Kelly Montilla Bacteria identified Cx Nom (U) INDICATED Normal [facility] Comment on above: Performed By: #### U ACSIND, UMICRO #### [facility] [address] [place] [address] Dr. Kelly Montilla CAST NONE SEEN Normal NONE SEEN The [facility] Comment on above: Performed By: #### U ACSIND, UMICRO #### [facility] [address] [address] [address] Kelly Montilla Crystals LM Nom (Urine sed) NONE SEEN Normal NONE SEEN The [facility] Comment on above: Performed By: #### U ACSIND, UMICRO #### [facility] [address] [place] [address] Dr. Kelly Montilla Epithelial cells LM Ql (Urine sed) FEW Abnormal NONE SEEN /RARE The [facility] Comment on above: Performed By: #### U ACSLUIS FELIPE, UMICRO #### [facility] [address] [place] [address] Dr. Kelly Montilla MUCOUS TRACE Abnormal NONE SEEN The [facility] Comment on above: Performed By: #### U ACSLUIS FELIPE, UMICRO #### [facility] [address] [place] [address] Dr. Kelly Montilla RBC NONE SEEN Abnormal 0-2 [facility] Comment on above: Performed By: #### U ACSLUIS FELIPE, UMICRO #### [facility] [address] [place] [address] Dr. Kelly Montilla WBC 5-10 Abnormal NONE SEEN The [facility] Comment on above: Performed By: #### U ACSIND, UMICRO #### [facility] [address] [place] [address] Dr. Kelly Montilla US PREG INCOMPLETE ANATOMYon [...] LIAM BOYKIN Date: 2022-12-23 10:42 Normal The [facility] US PREG ANATOMY SINGLEon US PREG ANATOMY [...] LIAM BOYKIN Date: 2022-12-13 16:10 Normal The [facility] AFP MATERNAL FOR SPINA BIFID Aon 12-11-2022 AFP MoM 0.91 Normal The [facility] Comment on above: Performed By: #### U TOMÁS JEAN #### [facility] [address] [address] [address] Kelly Montilla AFP Value 51.5 ng/mL Normal [facility] Comment on above: Performed By: #### U TOMÁS JEAN #### [facility] [address] [address] [address] Kelly Montilla AFP, Serum for Spina Bifida Report Normal [facility] Comment on above: Performed By: #### U BRITTON JEANRO #### [facility] [address] [address] [address] Kelly Montilla Comment Comment Normal [facility] Comment on above: Result Comment: Vannessa Alcala, Ph.D., [facility] Director . References: Available Upon Request. . Multiples Of Median Cutoffs For AFP Elevations Stinson 2.5 Black 2.8 IDD 2.0 Twins 4.5 Abbreviation Definitions IDD - Insulin Dep Diabetes OSBR - Open Spina Bifida Risk . For further inquiries contact [employer] at [phone]. . This test was developed and its performance characteristics determined by [employer]. It has not been cleared or approved by the Food and Drug Administration. Performed By: #### U BRITTON JEANRO #### [facility] [address] [address] [address] Kelly Montilla Gest Age Collection Date 20.0 weeks Normal [facility] Comment on above: Performed By: #### U NANCI JEANICRO #### [facility] [address] [address] [address] Kelly Montilla Gestat, Age Based on Ultrasound Normal [facility] Comment on above: Result Comment: 14.9 on 11/03/2022 Recalculations are not recommended when gestational dating by LMP and ultrasound are within 10 days. Performed By: #### U BRITTON JEANRO #### [facility] [address] [place] [address] Dr. Kelly Montilla Insulin Dep Diabetes No Normal [facility] Comment on above: Performed By: #### U TED UMICRO #### [facility] [address] [place] [address] Dr. Kelly Montilla Interpretation Comment Normal [facility] Comment on above: Result Comment: Inte rpretation: [...] Customer Services to discuss available options. The [employer] recommends amniocentesis be offered to women age 35 and older. Performed By: #### U ACSIND, UMICRO #### [facility] [address] [address] [address] Kelly Montilla [age] Normal [facility] Comment on above: Performed By: #### U ACSIND, UMICRO #### [facility] [address] [address] [address] Kelly Montilla Multiple Gestation No Normal [facility] Comment on above: Performed By: #### U ACSIND, UMICRO #### [facility] [address] [place] [address] Dr. Kelly Montilla [place] [address] Normal [facility] Comment on above: Performed By: #### U ACSIND, UMICRO #### [facility] [address] [address] [address] Kelly Montilla PDF . [facility] Comment on above: Performed By: #### U ACSIND, UMICRO #### [facility] [address] [place] [address] Dr. Kelly Montilla Race [facility] Comment on above: Performed By: #### U ACSIND, UMICRO #### [facility] [address] [place] [address] Dr. Kelly Montilla Test Results: Negative Normal [facility] Comment on above: Performed By: #### U ACSIND, UMICRO #### [facility] [address] [place] [address] Dr. Kelly Montilla PAP ACOG PANEL 2: 21 to 29on 11-11-2022 . . Normal [facility] Comment on above: Performed By: #### [id number] #### [facility] [address] [place] [address] Dr. Kelly Montilla Age Gdln ACOG Testing 21-29 Normal [facility] Comment on above: Performed By: #### [id number] #### [facility] [address] [place] [address] Dr. Kelly Montilla DIAGNOSIS: Comment [facility] Comment on above: Result Comment: NEGA TIVE FOR INTRAEPITHELIAL LESION OR MALIGNANCY. THIS SPECIMEN WAS RESCREENED PART OF OUR MANAGER [employer] PROGRAM. Performed By: #### [id number] #### [facility] [address] [place] [address] Dr. Kelly Montilla Methodology: Comment [facility] Comment on above: Result Comment: This liquid based ThinPrep(R) pap test was screened with the use of an image guided system. Performed By: #### [id number] #### [facility] [address] [place] [address] Dr. Kelly Montilla Note: Comment [facility] Comment on above: Result Comment: The Pap smear is a screening test designed to aid in the detection of premalignant and malignant conditions of the uterine cervix. It is not a diagnostic procedure and should not be used as the sole means of detecting cervical cancer. Both false-positive and false-negative reports do occur. . Performed By: #### [id number] #### [facility] [address] [place] [address] Dr. Kelly Montilla Performed by: Comment Normal [facility] Comment on above: Result Comment: Hector Bowles, Bee Robber (ASCP) Performed By: #### [id number] #### [facility] [address] [place] [address] Dr. Kelly Montilla QC reviewed by: Comment Normal [facility] Comment on above: Result Comment: Woo Lawrence, Supervisory Bee Robber (ASCP) Performed By: #### 4 [id number] #### [facility] [address] [place] [address] Dr. Kelly Montilla Reflex Criteria: Comment [facility] Comment on above: Result Comment: The HPV DNA reflex criteria were not met with this specimen result therefore, no HPV testing was performed. . Performed By: #### 4 [id number] #### [facility] [address] [place] [address] Dr. eKlly Montilla Specimen adequacy: Comment Normal [facility] Comment on above: Result Comment: Sati sfactory for evaluation. Endocervical and/or squamous metaplastic cells (endocervical component) are present. Performed By: #### 4 [id number] #### [facility] [address] [place] [address] Dr. Kelly Montilla CHLAMYDIA/GONOCOCCUS DONTA (SW AB/URINE/PAPon 11-07-2022 Chlamydia trachomatis, DONTA Negative Normal Negative [facility] Comment on above: Performed By: #### V AGINT #### [facility] [address] [place] [address] Dr. Kelly Montilla Neisseria gonorrhoeae, DONTA Negative Normal Negative [facility] Comment on above: Performed By: #### V AGINT #### [facility] [address] [place] [address] Dr. Kelly Montilla VAGINITIS/VAGINOSIS DNA PROB Buster 11-05-2022 Patty species Negative Normal Negative [facility] Comment on above: Performed By: #### V AGINT #### [facility] [address] [place] [address] Dr. Kelly Montilla Gardnerella vaginalis Negative Normal Negative [facility] Comment on above: Performed By: #### V AGINT #### [facility] [address] [place] [address] Dr. Kelly Montilla Trichomonas vaginalis Negative Normal Negative [facility] Comment on above: Performed By: #### V AGINT #### [facility] [address] [place] [address] Dr. Kelly Montilla HEP B SURFACE ANTIGEN SCREEN on 10-08-2022 HBsAg Screen Negative Normal Negative [facility] Comment on above: Performed By: #### H BSANS #### [facility] [address] [place] [address] Dr. Kelly Montilla HEPATITIS C VIRUS AB W/ REFL EX QUANTon 10-08-2022 HCV AB <0.1 Normal 0.0-0.9 [facility] Comment on above: Performed By: #### U ACSLUIS FELIPE, UMICRO #### [facility] [address] [address] [address] Kelly Montilla Interpretation: Comment Normal [facility] Comment on above: Result Comment: Nega tive Not infected with HCV, unless recent infection is suspected or other evidence exists to indicate HCV infection. Performed By: #### U ACSLUIS FELIPE, UMICRO #### [facility] [address] [address] [address] Kelly Montilla HIV 1 AND 2 WITH REFLEXon HIV Screen 4th Generation wRfx Non-Reactive Normal Non Reactive [facility] Comment on above: Result Comment: HIV Negative HIV-1/HIV-2 antibodies and HIV-1 p24 antigen were NOT detected. There is no laboratory evidence of HIV infection. Performed By: #### H IV12 #### [facility] [address] [place] [address] Dr. Kelly Montilla RPR QUANTon 10-08-2022 Rapid Plasma Reagin, Quant Non-Reactive Normal NonRea<1:1 [facility] Comment on above: Result Comment: Plea se Note: This test does not meet current guidelines for screening and diagnosis of syphilis. This test is intended for following treatment response in patients being treated for syphilis infection. To screen for syphilis infection, a reflex cascade that includes both RPR and a treponema-specific assay should be utilized, such as Treponema pallidum (Syphilis) Screening [place] (566331) or Rapid Plasma Reagin (RPR) Test With Reflex to Quantitative RPR and Confirmatory Treponema pallidum Antibodies (317732). Performed By: #### U ACSLUIS FELIPE, UMICRO #### [facility] [address] [address] [address] Kelly Montilla RUBELLA AB IGGon 10-08-2022 Rubella Antibodies, IgG 4.88 index Normal Immune >0.99 [facility] Comment on above: Result Comment: Non- immune <0.90 Equivocal 0.90 - 0.99 Immune >0.99 Performed By: #### U ACSLUIS FELIPE, UMICRO #### [facility] [address] [address] [address] Kelly Montilla CBC AUTO DIFFon 10-07-2022 BASO # 0.0 103/ul Normal 0.0-0.1 [facility] Comment on above: Performed By: #### V AGINT #### [facility] [address] [place] [address] Dr. Kelly Montilla Basophils/100 WBC (Bld) 0.4 % Normal 0.2-2.0 [facility] Comment on above: Performed By: #### V AGINT #### [facility] [address] [place] [address] Dr. Kelly Montilla EO # 0.1 103/ul Normal 0.0-0.7 [facility] Comment on above: Performed By: #### V AGINT #### [facility] [address] [place] [address] Dr. Kelly Montilla Eosinophils/100 WBC (Bld) 1.6 % Normal 0.9-7.0 [facility] Comment on above: Performed By: #### V AGINT #### [facility] [address] [place] [address] Dr. Kelly Montilla Erythrocyte distribution width (RBC) [Ratio] 12.4 % Normal 11.0-15.0 [facility] Comment on above: Performed By: #### V AGINT #### [facility] [address] [place] [address] Dr. Kelly Montilla Hematocrit (Bld) [Volume fraction] 35.4 % Critically low 36.0-48.0 [facility] Comment on above: Performed By: #### V AGINT #### [facility] [address] [place] [address] Dr. Kelly Montilla Hemoglobin (Bld) [Mass/Vol] 12.4 g/dL Normal 12.0-16.0 [facility] Comment on above: Performed By: #### V AGINT #### [facility] [address] [place] [address] Dr. Kelly Montilla IG # 0.02 10e3/ul Normal 0.00-0.03 [facility] Comment on above: Performed By: #### V AGINT #### [facility] [address] [place] [address] Dr. Kelly Montilla IG % 0.3 % Normal 0.0-0.5 [facility] Comment on above: Performed By: #### V AGINT #### [facility] [address] [place] [address] Dr. Kelly Montilla LYMPH # 1.8 103/ul Normal 1.2-3.8 [facility] Comment on above: Performed By: #### V AGINT #### [facility] [address] [place] [address] Dr. Kelly Montilla Lymphocytes/100 WBC (Bld) 23.6 % Normal 20.5-60.0 [facility] Comment on above: Performed By: #### V AGINT #### [facility] [address] [place] [address] Dr. Kelly Montilla MANUAL DIFF REQ NO Normal [facility] Comment on above: Performed By: #### V AGINT #### [facility] [address] [place] [address] Dr. Kelly Montilla MCH (RBC) [Entitic mass] 31.6 pg Normal 26.7-34.0 [facility] Comment on above: Performed By: #### V AGINT #### [facility] [address] [place] [address] Dr. Kelly Montilla MCHC (RBC) [Mass/Vol] 35.0 g/dL Normal 29.9-35.2 [facility] Comment on above: Performed By: #### V AGINT #### [facility] [address] [place] [address] Dr. Kelly Montilla MCV (RBC) [Entitic vol] 90.3 fL Normal 81.0-99.0 [facility] Comment on above: Performed By: #### V AGINT #### [facility] [address] [place] [address] Dr. Kelly Montilla MONO # 0.4 103/ul Normal 0.3-0.8 [facility] Comment on above: Performed By: #### V AGINT #### [facility] [address] [address] [address] Kelly Montilla Monocytes/100 WBC (Bld) 5.4 % Normal 1.7-12.0 [facility] Comment on above: Performed By: #### V AGINT #### [facility] [address] [address] [address] Kelly Montilla NEUT # 5.2 103/ul Normal 1.4-6.5 [facility] Comment on above: Performed By: #### V AGINT #### [facility] [address] [address] [address] Kelly Montilla Neutrophils/100 WBC (Bld) 68.7 % Normal 43.0-75.0 [facility] Comment on above: Performed By: #### V AGINT #### [facility] [address] [place] [address] Dr. Kelly Montilla Platelet mean volume (Bld) [Entitic vol] 9.3 fL Critically low 9.5-13.5 [facility] Comment on above: Performed By: #### V AGINT #### [facility] [address] [address] [address] Kelly Montilla PLT 217 103/ul Normal 150-450 [facility] Comment on above: Performed By: #### V AGINT #### [facility] [address] [place] [address] Dr. Kelly Montilla RBC 3.92 106/ul Critically low 4.20-5.40 [facility] Comment on above: Performed By: #### V AGINT #### [facility] [address] [place] [address] Dr. Kelly Montilla WBC 7.6 103/ul Normal 4.0-11.0 [facility] Comment on above: Performed By: #### V AGINT #### [facility] [address] [place] [address] Dr. Kelly Montilla CULTURE URINEon 10-07-2022 CULTURE URINE Culture Observations : LIGHT GROWTH OF MIXED GENITAL ALBAN. NO POTENTIAL PATHOGENS SEEN. Normal [facility] Comment on above: Performed By: #### U RCX #### [facility] [address] [address] [address] Kelly Montilla GLYCOHEMOGLOBIN A1Con 2022 ADA RECOMMENDATION SEE BELOW Normal [facility] Comment on above: Result Comment: ADA RECOMMENDED LIMIT 4.0 - 6.0 ADA THERAPEUTIC TARGET < 7.0 ACTION SUGGESTED > 7.0 Performed By: #### U ACSLUIS FELIPE, UMICRO #### [facility] [address] [address] [address] Kelly Montilla Glucose [Mass/Vol] 97 mg/dL Normal [facility] Comment on above: Performed By: #### U ACSLUIS FELIPE, UMICRO #### [facility] [address] [address] [address] Kelly Montilla HbA1c (Bld) [Mass fraction] 5.0 % Normal 4.5-6.2 [facility] Comment on above: Performed By: #### U ACSLUIS FELIPE, NANCIICRO #### [facility] [address] [address] [address] Kelly Montilla MYRA BOX TEST PT SEND OUTo n 10-07-2022 SENT TO REF LAB 10/07/2022 Normal [facility] Comment on above: Performed By: #### N BOX #### [facility] [address] [place] [address] Dr. Kelly Montilla TYPE AND SCREENon 10-07-2022 TYPE AND SCREEN Negative Normal [facility] Comment on above: Performed By: #### V AGINT #### [facility] [address] [place] [address] Dr. Kelly Montilla US PREG TVon 09-16-2022 [...] MICHELLE HAMMER Date: 2022-09-16 09:19 Normal [facility] ED Note-Physicianon 06-12-20 ED Note-Physician Basic Information Time Seen: Ilana Ornelas DO 06/10/2020 13:46 Chief Complaint Intermittent SOB and palpitations ongoing for a month. Denies chest pain. Seen at [facility] x[facility] for same problem. Was told 2 days ago she may have pneumonia. Taking zpack and inhalaher as prescribed with no relief. Anxious. History of Present Illness Pt is a 25 year old female who presents to the ED for chest pain and anxiety. Upon interview, she exhibits excessive worry about multiple different systems. She states she was just at [place] [facility] where she had a chest x-ray [...] normal psychiatric thoughts. Medical Decision Making 1535: [facility] records requested at time of Pt arrival. Did not receive until 1510. CXR with no pneumonia. Will also add at D-dimer to her [facility] labs. ED tests discussed with Pt. Recommend [...] to 3 [address] [place] [address] [phone] Business (1) Additional Instructions: Return to ED if symptoms worsen. Cut back on Caffeine. You will be contacted to get a 48 hour heart monitor set up. Call your Diesel Technician Mechanic to discuss your frequent urination. Patient Education [...] 15:17:00) Lymph Auto: 24.5 % (06/10/20 15:17:00) [place] Auto: 6.1 % (06/10/20 15:17:00) Eos Auto: 1.7 % (06/10/20 15:17:00) Basophil Auto: 0.3 % (06/10/20 15:17:00) Neutro Absolute: 4.5 E9/L (06/10/20 15:17:00) Lymph Absolute: 1.6 E9/L (06/10/20 15:17:00) [place] Absolute: 0.4 E9/L (06/10/20 15:17:00) Eos Absolute: [...] By: Ilana Ornelas DO 06/10/2020 14:00:35 Normal [facility] Comment on above: Result Comment: Elec tronically Signed By: Maricarmen Reyes\.br\Date and Time Signed: 06/10/20 14:20 EDT\.br\Electronically Co-Signed By: Ilana Ornelas DO\.br\Date and Time Co-Signed: 06/12/20 12:11 EDT Coding Summary.on 06-11-2020 Coding Summary. CODING DATE: 06/11/2020 FINAL [facility] DSC STATUS: Home (Routine DC) PAYOR: [...] Yee Date Saved: 06/11/2020 07:43 am Normal [facility] Auto Diffon 06-10-2020 Basophils/100 WBC (Bld) 0.3 % Normal 0.0-2.0 [facility] Comment on above: Order Comment: Order Added by Discern Expert. Performed By: #### 2 [id number], 5983439, 5049298, [id number], [id number] #### [facility] [address] [place] [address] Basophils/Leukocytes Auto (Bld) [Pure # fraction] 0.0 E9/L Normal 0.0-0.2 [facility] Comment on above: Order Comment: Order Added by Discern Expert. Performed By: #### 2 683251, 9002486, 6630246, [id number], [id number] #### [facility] [address] [place] [address] Eosinophils/100 WBC (Bld) 1.7 % Normal 0.0-8.0 [facility] Comment on above: Order Comment: Order Added by Discern Expert. Performed By: #### 2 118670, 4434945, 3209139, 93354116, 23138236 #### [facility] [address] [place] [address] Eosinophils/Leukocyt es Auto (Bld) [Pure # fraction] 0.1 E9/L Normal 0.0-0.5 [facility] Comment on above: Order Comment: Order Added by Discern Expert. Performed By: #### 2 500140, 0432571, 7079189, 20185905, 87095488 #### [facility] [address] [place] [address] Lymphocytes/100 WBC (Bld) 24.5 % Normal 14.0-50.0 [facility] Comment on above: Order Comment: Order Added by Discern Expert. Performed By: #### 2 756391, 9860713, 4322091, 52402824, [id number] #### [facility] [address] [place] [address] Lymphocytes/Leukocyt es Auto (Bld) [Pure # fraction] 1.6 E9/L Normal 1.0-4.0 [facility] Comment on above: Order Comment: Order Added by Discern Expert. Performed By: #### 2 703727, 3038034, 2677039, 49994460, 12203829 #### [facility] [address] [place] [address] Monocytes/100 WBC (Bld) 6.1 % Normal 4.0-14.0 [facility] Comment on above: Order Comment: Order Added by Discern Expert. Performed By: #### 2 716064, 0437721, 4113398, 87039169, 85608914 #### [facility] [address] [place] [address] Monocytes/Leukocytes Auto (Bld) [Pure # fraction] 0.4 E9/L Normal 0.2-1.0 [facility] Comment on above: Order Comment: Order Added by Discern Expert. Performed By: #### 2 784118, 4664045, 9748661, 04678801, 35283373 #### [facility] [address] [place] [address] Neutrophils/100 WBC (Bld) 67.4 % Normal 36.0-75.0 [facility] Comment on above: Order Comment: Order Added by Discern Expert. Performed By: #### 2 966583, 8099516, 4295778, 31358179, 24316293 #### [facility] [address] [place] [address] Neutrophils/Leukocyt es Auto (Bld) [Pure # fraction] 4.5 E9/L Normal 2.0-7.5 [facility] Comment on above: Order Comment: Order Added by Discern Expert. Performed By: #### 2 534159, 6564226, 9106728, 93382935, 14703867 #### [facility] [address] [place] [address] CBC w/ Auto Diffon 0 Erythrocyte distribution width (RBC) [Ratio] 12.8 % Normal 10.9-14.2 [facility] Comment on above: Performed By: #### 2 013567, 8697324, 0675850, 39991902, 91710129 #### [facility] [address] [place] [address] Hematocrit (Bld) [Volume fraction] 40.9 % Normal 34.0-46.0 [facility] Comment on above: Performed By: #### 2 546129, 6259134, 1380202, 87347379, 28579103 #### [facility] [address] [place] [address] Hemoglobin (Bld) [Mass/Vol] 14.1 g/dL Normal 12.0-16.0 [facility] Comment on above: Performed By: #### 2 860205, 6019024, 4490765, 95183403, 36924904 #### [facility] [address] [place] [address] MCH (RBC) [Entitic mass] 32.6 pg Normal 27.0-34.0 [facility] Comment on above: Performed By: #### 2 803380, 3488544, 1088254, 70944989, 19788663 #### [facility] [address] [place] [address] MCHC (RBC) [Mass/Vol] 34.5 g/dL Normal 31.4-36.0 [facility] Comment on above: Performed By: #### 2 248109, 8825294, 5557945, 47672109, 96536314 #### [facility] [address] [place] [address] MCV (RBC) [Entitic vol] 94.5 fL Normal 80.0-100.0 [facility] Comment on above: Performed By: #### 2 155584, 3858487, 6438218, 29187982, 99958621 #### [facility] [address] [place] [address] Platelet mean volume (Bld) [Entitic vol] 7.2 fL Normal 6.4-10.8 [facility] Comment on above: Performed By: #### 2 242959, 5598829, 1332685, 99425119, 86728155 #### [facility] [address] [place] [address] Platelets (Bld) [#/Vol] 220.0 E9/L Normal 150.0-500.0 [facility] Comment on above: Performed By: #### 2 219252, 7518417, 9522471, 96591183, 33012777 #### [facility] [address] [place] [address] RBC (Bld) [#/Vol] 4.3 E12/L Normal 4.3-5.9 [facility] Comment on above: Performed By: #### 2 841320, 2375212, 4514950, 97289895, 97849610 #### [facility] [address] [place] [address] WBC corrected for nucl RBC Auto (Bld) [#/Vol] 6.6 E9/L Normal 4.0-11.0 [facility] Comment on above: Performed By: #### 2 966167, 9130002, 1781842, 26376907, 51963595 #### [facility] [address] [place] [address] CMPon 06-10-2020 Albumin [Mass/Vol] 1.3 g/dL Normal 1.1-2.2 [facility] Comment on above: Performed By: #### 2 987049, 6417596, 8495902, 90986591, 89249872 #### [facility] [address] [place] [address] Albumin [Mass/Vol] 4.0 g/dL Normal 3.3-5.0 [facility] Comment on above: Performed By: #### 2 285665, 0864976, 2472656, 97674887, 23748398 #### [facility] [address] [place] [address] ALP [Catalytic activity/Vol] 34 Int._Unit/L Normal 21-98 [facility] Comment on above: Performed By: #### 2 101927, 7908327, 1512637, 43097949, 67992440 #### [facility] [address] [place] [address] ALT No additional P-5'-P [Catalytic activity/Vol] 11 Int._Unit/L Normal 6-46 [facility] Comment on above: Performed By: #### 2 526210, 3022659, 4816890, 32400539, 07685037 #### [facility] [address] [place] [address] AST [Catalytic activity/Vol] 12 Int._Unit/L Normal 5-43 [facility] Comment on above: Performed By: #### 2 107857, 0423042, 1693006, 30394236, 85029956 #### [facility] [address] [place] [address] Bilirubin [Mass/Vol] 0.8 mg/dL Normal 0.0-1.1 [facility] Comment on above: Performed By: #### 2 633613, 2290080, 0393786, 44593038, 60597984 #### [facility] [address] [place] [address] Creatinine [Mass/Vol] 0.6 mg/dL Normal 0.5-1.3 [facility] Comment on above: Performed By: #### 2 386490, 0147813, 3023677, 05997515, 85552679 #### [facility] [address] [place] [address] Globulin (S) [Mass/Vol] 3.0 g/dL Normal 1.4-4.0 [facility] Comment on above: Performed By: #### 2 708686, 2429940, 3000859, 30247477, 73704918 #### [facility] [address] [place] [address] Protein [Mass/Vol] 7.0 g/dL Normal 6.0-7.8 [facility] Comment on above: Performed By: #### 2 935772, 8168369, 0818246, 80859507, 48211872 #### [facility] [address] [place] [address] Urea nitrogen [Mass/Vol] 9 mg/dL Normal 5-21 [facility] Comment on above: Performed By: #### 2 710924, 9020835, 0807987, 60979411, 68641012 #### [facility] [address] [place] [address] Urea nitrogen/Creatinine [Mass ratio] 15 No Units Normal 10-20 [facility] Comment on above: Performed By: #### 2 706166, 0387476, 7367433, 94350485, 57703622 #### [facility] [address] [place] [address] Anion gap [Moles/Vol] 13 mmol/L Normal 6-16 [facility] Comment on above: Performed By: #### 2 421859, 0774666, 9077726, 75024056, 66536320 #### [facility] [address] [place] [address] Calcium [Mass/Vol] 9.2 mg/dL Normal 8.9-11.1 [facility] Comment on above: Performed By: #### 2 572283, 9119671, 8251295, 07504599, 48585723 #### [facility] [address] [place] [address] Chloride [Moles/Vol] 104 mmol/L Normal 101-111 [facility] Comment on above: Performed By: #### 2 852940, 0106882, 2262972, 95606146, 77422376 #### [facility] [address] [place] [address] CO2 [Moles/Vol] 25 mmol/L Normal 21-31 [facility] Comment on above: Performed By: #### 2 606235, 1372926, 8667570, 36015773, 24028308 #### [facility] [address] [place] [address] Glucose [Mass/Vol] 84 mg/dL Normal 55-199 [facility] Comment on above: Result Comment: If t his glucose result represents a fasting glucose, interpretation should refer to the following reference range: 55-99 mg/dL Performed By: #### 2 813454, 9858610, 3732253, 05477340, 89567841 #### [facility] [address] [place] [address] Potassium [Moles/Vol] 4.1 mmol/L Normal 3.5-5.3 [facility] Comment on above: Performed By: #### 2 246676, 9342177, 3498607, 41680106, 11832718 #### [facility] [address] [place] [address] Sodium [Moles/Vol] 138 mmol/L Normal 135-145 [facility] Comment on above: Performed By: #### 2 893469, 9154297, 3353287, 40191462, 65753390 #### [facility] [facility] [address] [place] [address] Consent for Treatmenton Consent for Treatment [id number] 0CD:127 Normal [facility] D-Dimeron 06-10-2020 Fibrin D-dimer FEU (PPP) [Mass/Vol] <215 Low 215-500 [facility] Comment on [...] infections Liver cirrhosis Performed By: #### 2 [id number] #### [facility] Laboratory [address] [place] [address] Discharge Instructionson Discharge Instructions [id number] 0CD:127 Normal [facility] ED Clinical Summaryon 2019 ED Clinical Summary [address] [address] ED Clinical Summary Person Information Name: ELOINA KU [facility] Age: 25 Years : 1995 Sex: Female Language: Romanian PCP: JAYSHREE LEIJA CNP Marital Status: Single Phone: [phone] MRN: Visit Id: Visit Reason: Palpitations; Anxiety; SOB- SEEN IN [facility] TOLD SHE HAS PNUEMONIA Speciality: Acuity: 3 [...] 06/10/2020 16:44:17 06/10/2020 16:44:17 06/10/2020 16:44:17 ADDRESS: [facility] [address] [place] [address] NOTES: MEDICAL INFORMATION: Prescriptions Given: Medications to [...] When: JAYSHREE LEIJA [address] [place] [address] [phone] Business (1) Within 2 to 3 days Comments: Return to ED if symptoms worsen. Cut back on Caffeine. You will be contacted to get a 48 hour heart monitor set up. Call your Diesel Technician Mechanic to discuss your frequent urination. DIAGNOSIS: 1:Palpitations Normal [facility] ED Patient Education Noteon 06-10-2020 [...] Document Reviewed: 11/16/2012 ExitCare? Patient Information ?2015 [employer]. This information is not intended to replace advice given to you by your health care provider. Make sure you discuss any questions you have with your health care provider. Normal [facility] ED Patient Summaryon 020 ED Patient Summary [place] [id number] Patient Discharge Instructions Person Information Name: ELOINA KU Age: 25 Years Arrival Date: 06/10/2020 13:38:02 Discharge Diagnosis: 1:Palpitations Primary Care Physician: JAYSHREE LEIJA CNP Provider Information Primary Provider: Ilana Ornelas DO Advanced Humidifier Operator:None The exam and treatment you received in the Emergency Department were for an urgent problem and are not intended as complete care. It is important that you follow up with a doctor, nurse practitioner, or physician?s activities assistant for ongoing care. If your symptoms [...] When: JAYSHREE LEIJA [address] [place] [address] [phone] Business (1) Within 2 to 3 days Comments: Return to ED if symptoms worsen. Cut back on Caffeine. You will be contacted to get a 48 hour heart monitor set up. Call your Diesel Technician Mechanic to discuss your frequent urination. In the event that this physician does not participate in your insurance network, please consult with your insurance company to find a nearby participating provider. Patient Education Materials: Palpitations A MESSAGE TO ALL PATIENTS REGARDING OPIOIDS PRESCRIPTION OPIOIDS: WHAT YOU NEED TO KNOW Prescription opioids can be used to help relieve npnzhcxx-du-gpyqsd pain and are often prescribed following a [...] be struggling with addiction, tell your health career specialist and ask for guidance or call [facility]?S National Helpline at 8-275-936-XJOA. b Source: US Department of Health and Human Services/Center for Disease Control & Prevention [facility] Medications Given: Medication Dose Route [...] Information: SHAWNEE Wolfe Thank you for choosing [facility] Patient Education Materials: Palpitations A palpitation [...] Document Reviewed: 11/16/2012 ExitCare? Patient Information ?2015 Adwanted. This information is not intended to replace advice given to you by your health care provider. Make sure you discuss any questions you have with your health care provider. ELMIRA Horton BRITTANY NICOLE , have received the following patient education materials/instructions and have verbalized understanding: Patient Education Materials: Palpitations Follow-up Instructions: With: Address: When: JAYSHREE LEIJA [address] [place] [address] [phone] Business (1) Within 2 to 3 days Comments: Return to ED if symptoms worsen. Cut back on Caffeine. You will be contacted to get a 48 hour heart monitor set up. Call your Diesel Technician Mechanic to discuss your frequent urination. Patient Signature Date Clinician/Nurse Signature ___ Date 06/10/2020 16:44:19 Normal [facility] Troponin 0 Hr.on 06-10-2020 Troponin I.cardiac [Mass/Vol] ng/mL Low 10.10-27.10 [facility] Comment on above: Result Comment: The 95% CI (Confidence Interval) PPV (Positive Predictive Value) for myocardial infarction in females is 38 pg/mL, in males 51 pg/mL. The results should be used in conjunction with clinical conditions of myocardial infarction. (Access High Sensitivity Troponin I Instructions For Use, [place], May 2018) Performed By: #### 2 [id number], [id number], [id number], [id number], [id number] #### [facility] Laboratory [address] [place] [address] U BetaHcg Qualon 06-10-2020 HCG.beta subunit (U) [Moles/Vol] Negative Normal [facility] Comment on above: Performed By: #### 2 [id number], [id number] #### [facility] Laboratory [address] [place] [address] UA With Cult Reflexon 2019 Bilirubin Ql (U) Negative Normal Negative [facility] Comment on above: Performed By: #### 2 [id number], [id number] #### [facility] [address] [place] [address] Clarity (U) CLEAR Normal Clear [facility] Comment on above: Performed By: #### 2 [id number], [id number] #### [facility] [address] [place] [address] Color (U) YELLOW Normal Yellow [facility] Comment on above: Performed By: #### 2 [id number], [id number] #### [facility] Laboratory [address] [place] [address] Epithelial cells.squamous LM.HPF (Urine sed) [#/Area] 0-2 Normal 0-2 [facility] Comment on above: Performed By: #### 2 [id number], [id number] #### [facility] [address] [place] [address] Glucose Test strip (U) [Mass/Vol] Negative Normal Negative [facility] Comment on above: Performed By: #### 2 [id number], [id number] #### [facility] [address] [place] [address] Hemoglobin Ql (U) Negative Normal Negative [facility] Comment on above: Performed By: #### 2 [id number], [id number] #### [facility] [address] [place] [address] Ketones (U) [Mass/Vol] Negative Normal Negative [facility] Comment on above: Performed By: #### 2 [id number], [id number] #### [facility] [address] [place] [address] Amesti.plasma/Lithi um.RBC (Bld) [Mass ratio] 0-3 Normal 0-3 [facility] Comment on above: Performed By: #### 2 [id number], [id number] #### [facility] [address] [place] [address] Mucus Ql (Urine sed) TRACE Normal [facility] Comment on above: Performed By: #### 2 [id number], [id number] #### [facility] [address] [place] [address] Nitrite Ql (U) Negative Normal Negative [facility] Comment on above: Performed By: #### 2 [id number], [id number] #### [facility] [address] [place] [address] pH (U) 7.5 [pH] 5.0-9.0 [facility] Comment on above: Performed By: #### 2 [id number], [id number] #### [facility] [address] [place] [address] Protein (U) [Mass/Vol] Negative Normal Negative [facility] Comment on above: Performed By: #### 2 [id number], [id number] #### [facility] [address] [place] [address] Specific gravity (U) [Rel density] 1.010 1.005-1.030 [facility] Comment on above: Performed By: #### 2 [id number], [id number] #### [facility] [address] [place] [address] UA Spec Desc Random Urine Normal [facility] Comment on above: Performed By: #### 2 [id number], [id number] #### [facility] Laboratory [address] [place] [address] Urobilinogen Qn (U) 0.2 {Maria C'U}/dL Normal 0.0-1.0 [facility] Comment on above: Performed By: #### 2 [id number], [id number] #### [facility] [address] [place] [address] WBC Auto Ql (U) Negative Normal Negative [facility] Comment on above: Performed By: #### 2 [id number], [id number] #### [facility] [address] [place] [address] WBC LM.HPF (Urine sed) [#/Area] 0-5 Normal 0-5 [facility] Comment on above: Performed By: #### 2 [id number], [id number] #### [facility] [address] [place] [address] XR Chest 2 Viewson 0 XR Chest [...] DO Transcribed by: KARLEY Technologist: LAWRENCE Normal [facility] eGFRon 06-10-2020 GFR/1.73 sq M predicted among blacks MDRD (S/P/Bld) [Vol rate/Area] mL/min/{1.73_m2} Normal >=59 [facility] Comment on above: Order Comment: Order added by Discern Expert. Result Comment: eGFR is race adjusted. AA=. Performed By: #### 2 158553, 8182774, 7347213, [id number], [id number] #### [facility] [address] [place] [address] GFR/1.73 sq M predicted among non-blacks MDRD (S/P/Bld) [Vol rate/Area] mL/min/{1.73_m2} Normal >=59 [facility] Comment on above: Order Comment: Order added by Discern Expert. Result Comment: Mechanic And Welder shyam kidney disease could be indicated at eGFR's of less than 60 mL/min/1.73m2. Kidney failure is indicated at less than 15 mL/min/1.73m2. Performed By: #### 2 882445, 2407403, 7679559, [id number], [id number] #### [facility] [address] [place] [address] Vital Signs Date Time Vital Sign Value Performing Clinician Facility 07-22-2024 15:12-0400 Body mass index (BMI) [Ratio] 25.58 kg/m2 [employer] Work Phone: [facility] [employer] 07-22-2024 15:12-0400 Body weight 67.59 kg [employer] Work Phone: [facility] [employer] 07-22-2024 15:12-0400 Diastolic blood pressure 64 mm[Hg] [employer] Work Phone: [facility] 07-22-2024 15:12-0400 Systolic blood pressure 108 mm[Hg] [employer] Work Phone: [facility] 07-15-2024 14:52-0400 Body mass index (BMI) [Ratio] 25.23 kg/m2 Jamil Huntzio DO Work Phone: [facility] 07-15-2024 14:52-0400 Body weight 66.68 kg Jamil Shultzo DO Work Phone: [facility] 07-15-2024 14:52-0400 Diastolic blood pressure 68 mm[Hg] Jamiljackie Shultzo DO Work Phone: [facility] 07-15-2024 14:52-0400 Systolic blood pressure 110 mm[Hg] Jamiljackie Shultzo DO Work Phone: [facility] 12-11-2022 00:05-0500 Body weight 71.[address] JAMIL PONEC . [facility] Comment on above: Performed By: #### UACSTOMÁS BRISCOE #### [facility] [address] [place] [address] Dr. Kelly Montilla Encounters Encounter Date Encounter Type Care Provider Facility Start: 07-22-2024 End: 07-22-2024 Office outpatient visit 15 minutes Jamil Shultzo DO Work Phone: [facility] Comment on above: Pre-op examination; Request for sterilization; Menorrhagia with regular cycle; Abnormal uterine bleeding (AUB); Pelvic pain in female Start: 07-22-2024 End: 07-22-2024 Preprocedural examination done Jamiljackie Ponce Petbrosia Work Phone: [facility] Start: 07-22-2024 End: 07-22-2024 ambulatory JAMIL SHULTZO Not Available Start: 07-16-2024 End: 07-16-2024 ambulatory PHYSICIAN NO [facility] Work Phone: Start: 07-16-2024 End: 07-16-2024 Departed Referred PHYSICIAN NO [facility] Start: 07-15-2024 [...] Screening for malign ant neoplasm of cervix [facility] Start: 11-03-2025 Screening for malign ant neoplasm of cervix [facility] Start: 01-08-2025 End: 01-08-2025 Patient encounter procedure 01/08/2025 11:00 AM EDT Office Visit [facility] [address] [place] [address] Jamil Ponce, DO [address] [place], [place] [address] [facility] Start: 07-22-2024 End: 07-22-2024 Patient encounter procedure 07/22/2024 2:40 PM EDT Consult [facility] [address] [place] [address] Jamil Ponce, DO [address], [place] [address] [facility] Start: 07-15-2024 End: 07-15-2024 Patient encounter procedure 07/15/2024 2:30 PM EDT Procedure Visit [facility] [address] [place] [address] Jamil Ponce, DO [address], [place] [address] [facility] Start: 06-02-2024 Influenza vaccination Influenza Vacc ine (#1) [facility] Start: 02-15-2024 Screening for malign ant neoplasm of cervix HPV/Cotest [facility] Start: 05-23-2023 ambulatory Ambulatory Facility:H 1 Tissue exam Tissue exam Path ology and Cytology Routine Menorrhagia with regular cycle Ordered: 07/15/2024 [facility] Work Phone: Comment on above: Ordered: 07/15/2024 Payers Date Payer Category Payer Medicaid [employer] [facility] [place] [id number] 2023-Present [address] [place] [address] [id number] 2023 [facility] Health [facility] [id number] 1995 Unknown [id number] 2.16840.1.064088.3.579.2. 59 1995 Unknown [id number] 2.16840.1.002349.3.579.2. 59 1994 Unknown [id number] 2.16840.1.388205.3.579.2. 59 1994 Unknown [id number] 2.16.840.1.542812.3.579.2. 59 1994 Unknown [id number] 2.16.840.1.883979.3.579.2. 59 1994 Unknown [id number] 2.16.840.1.417622.3.579.2. 59 1994 Unknown [id number] 2.16.840.1.311438.3.579.2. 593 1994 Unknown [id number] 2.16.840.1.753351.3.579.2. 593 1994 Unknown [id number] 2.16.840.1.430139.3.579.2. 593 1994 Unknown [id number] 2.16.840.1.296056.3.579.2. 593 1994 Unknown [id number] 2.16.840.1.386111.3.579.2. 593 1994 Unknown [id number] 2.16.840.1.411672.3.579.2. 1259 1994 Unknown [id number] 2.16.840.1.280208.3.579.2. 1259 1994 Unknown [id number] 2.16.840.1.374171.3.579.2. 1259 1994 Unknown [id number] 2.16840.1.048584.3.579.2. 1259 1994 Unknown [id number] 2.16.840.1.034415.3.579.2. 1259 1960 Self-pay 1960 Unknown [id number] 1960 Unknown [id number] Unknown [id number] 2.16.840.1.084509.3.579.2. 593 Social History Date Type Detail Facility Start: 03-11-2023 [facility] History of tobacco use Cigarette Smoker [...] Start: 1995 Sex Assigned At Female F [facility] History of Present illness Narrative 07-22-2024 Iris [...] on 08/16/[address] Ponce at [facility]. MEDICATIONS Current Outpatient Medications Medication Instructions etonogestrel-eluting [...] nursing note reviewed. Exam conducted with a corporate relations manager present. Vitals: Estimated body mass index is [...] reviewed, and patient is to proceed to [facility]. Follow Up: Patient is to follow [...] nursing note reviewed. Exam conducted with a corporate relations manager present. Vitals: Estimated body mass index is [...] Jamil Ponce DO documented in this encounter [facility] Healthcare Evaluation note Note Date & Type Note Facility Evaluation note No assessment information [facility] Work Phone: Evaluation note Note [...] female genital organs documented in this encounter [facility] Healthcare Summary Purpose Family History No Family History Records FoundNo Family History Records FoundNo Family History Records FoundNo Family History Records Found Advance Directives No Advanced Directives Records FoundNo Advanced Directives Records FoundNo Advanced Directives Records FoundNo Advanced Directives Records Found Additional Source Comments INFORMATION SOURCE (unrecogn ized section and content) DATE CREATED AUTHOR 06/12/2020 Cook Darrell [facility] DATE CREATED AUTHOR AUTHOR'S ORGANIZ ATION 02/15/2023 [facility] DATE CREATED AUTHOR AUTHOR'S ORGANIZ ATION 07/24/2024 [facility] EPIC DATE CREATED AUTHOR AUTHOR'S ORGANIZ ATION 07/25/2024 [facility] ys[facility] Care Teams (unrecognized sec tion and content) Sap Technical Developer Relationship Specialty Start Date End Date Mundo Kendrick MD [address] [place] [address] PCP - General Family Medicine 02/21/23 Jamil Ponce DO [address] [place] [address] PCP - [facility] 01/01/24 Team Status: Active Member Role Status Dates PHYSICIAN NO FAMILY Primary Care Provider Active Team Status: Inactive Member Role Status Dates PHYSICIAN NO FAMILY Primary Care Provider Active Start: July 16, 2024 End: July 16, 2024 Jamil Ponce DO Attending Provider Active Start : July 16, 2024 End: July 16, 2024 Sap Technical Developer Relationship Specialty Start Date End Date Mundo Kendrick MD [address] [place] [address] PCP - General [facility] 02/21/23 Jamil Ponce DO [address] [facility] [place] [address] PCP [facility] 01/01/24 Sap Technical Developer Relationship Specialty Start Date End Date Mundo Kendrick MD [address] [place] [address] PCP - General Family [facility] 02/21/23 Jamil Ponce DO [address] [place] [address] PCP - [facility] 01/01/24 Goals (unrecognized section and [...] BE BASED ON THE PRIMARY CLINICAL RECORDS. [facility] [employer] [facility]. provides no warranty or guarantee of the accuracy or completeness of information in this document.
[2024-08-16 07:59] LABS: Basophils Percent Auto 0.6 % (0.2-2.0); Eosinophils Absolute Auto 0.2 10^3/uL (0.0-0.7); Hematocrit 42.9 % (36.0-48.0); Hemoglobin 14.4 g/dL (12.0-16.0); Immature Granulocytes Abs Auto 0.01 10^3/uL (0.00-0.03); Immature Granulocytes Pct Auto 0.2 % (0.0-0.5); Lymphocytes Absolute Auto 2.2 10^3/uL (1.2-3.8); Lymphocytes Percent Auto 35.2 % (20.5-60.0); Mean Corpuscular HGB Conc 33.6 g/dL (29.9-35.2); Mean Corpuscular Hemoglobin 32.1 pg (26.7-34.0); Mean Corpuscular Volume 95.5 fL (81.0-99.0); Mean Platelet Volume 9.5 fL (9.5-13.5); Monocytes Absolute Auto 0.5 10^3/uL (0.3-0.8); Monocytes Percent Auto 7.6 % (1.7-12.0); Neutrophils Absolute Auto 3.4 10^3/uL (1.4-6.5); Neutrophils Percent Auto 53.4 % (43.0-75.0); Platelet Count 216 10^3/uL (150-450); Red Blood Count 4.49 10^6/uL (4.20-5.40); Red Cell Distribution Width 12.6 % (11.0-15.0); White Blood Count 6.3 10^3/uL (4.0-11.0)
[2024-08-16 08:14] LABS: Amphetamine Screen Urine NEGATIVE (NEGATIVE); Barbiturates Screen Urine NEGATIVE (NEGATIVE); Benzodiazepines Screen Urine NEGATIVE (NEGATIVE); Buprenorphine Screen Urine POSITIVE (NEGATIVE); Cannabinoid Screen Urine NEGATIVE (NEGATIVE); Cocaine Screen Urine NEGATIVE (NEGATIVE); Methadone Screen Urine NEGATIVE (NEGATIVE); Methamphetamines Screen Urine NEGATIVE (NEGATIVE); Opiate Screen Urine NEGATIVE (NEGATIVE); Oxycodone Screen Urine NEGATIVE (NEGATIVE); Phencyclidine Screen Urine NEGATIVE (NEGATIVE); Tricyclic Antidepressant Urine NEGATIVE (NEGATIVE)
[2024-08-16] MEDS: LACTATED RINGER'S SOLUTION 1,000 ML 50 ML IV (08:20)
[2024-08-16 08:31] LABS: HCG Quantitative <1 mIU/mL
--- NOTE | 2024-08-16 10:31 | P.ON_ITS ---
Brief Operative Note Date of procedure: 08/16/24 Pre-op diagnosis general: menorrhagia, desires permanent sterilization Post-op diagnosis: same as pre-op Procedure: NAME OF PROCEDURE: robotic assisted Laparoscopic bilateral salpingectomy, with Deisi endometrial ablation with hysteroscopy PROCEDURE: The patient was taken back to the OR where she was prepped and draped in the normal sterile fashion after being placed in the dorsal lithotomy position, after being placed under general anesthesia without difficulty. a weighted speculum was then placed into the vagina. Pap and endometrial bx were performed without difficultyThe anterior lip was grasped with a single tooth tenaculum. The patient was then sounded to approximatley 9cm. The patient was gently sounded using Hegar dilators and the hysteroscope was passed through the cervix into the uterus where both ostia were seen. No gross evidence of polyps, fibroids or malignancy. The cervical length was noted to be 4cm. The Deisi ablation apparatus was set to approximately 5cm in length. This was placed in through the cervix and into the uterus. After the seal was tested, at that time the total ablation of 120 seconds was performed with the Deisi without difficulty. All instruments were removed from the vagina. A wet sponge stick was placed into the patient's vagina. Attention was then turned to the patient's abdomen, where a scalpel was used to make a small infraumbilical incision. The S retractors were then used to dissect the underlying layers until the fascia could be seen. The fascia was then grasped with Sarah clamps and tented up. A knife was then used to make a small incision to the fascia. The muscle was identified, at that time two sutures of #0 Vicryl on a GI needlewas then used and placed through the fascia. The peritoneum was then identified and entered bluntly. The 10-4 Eunice was then placed into the patient's abdomen. This was confirmed with direct visualization of the bowel, using the laparoscope. The patient's abdomen was then insufflated using approximately 4 liters of CO2 gas. Survey of the patient's abdomen demonstrated normal appearing ovaries, uterus and tubes. A second and third lateral robotic ports, which was 8mm in size, was then placed laterally after incision was made in the skin under direct visualization. the robotic arms were engaged. The patient's tube on the patient's right side was identified. The tube was then tented up using a grasper. The ligasure was used to transect and coagulate the mesosalpingx from the fimbriated end to the insertion at the uterus, the tube was amputated and removed in its entirety.? Excellent hemostasis was noted. ?This was performed on the contralateral sideas well. The lateral ports were then moved under direct visualization with excellent hemostasis. The abdomen was deinsufflated. All instruments were removed from the patient's abdomen. The fascia was closed using the #0 Vicryl on GI needle. The skin was closed using 4- 0 Vicryl subcuticularly. All instruments were removed from the patient's vagina as well. The patient was taken out of the dorsal lithotomy position and placed in the supine position and taken to recovery in stable condition. Sponge, lap and needle counts were correct x2. ??? Anesthesia: JUNIOR Surgeon: Jemal Ponce Environmental Department Manager: Cara Parker Estimated blood loss (mL): 5 Pathology: other (tubes) Condition: stable Disposition: PACU Urinary Catheter Management Urinary Catheter Management Urethral: Cath placed during this visit: no
[2024-08-16] MEDS: ACETAMINOPHEN 300 MG/ 30 MG CODEINE TABLET 2 TAB PO (11:24)
[2024-08-16] MEDS: HYDROMORPHONE HCL 0.5 MG/0.5 ML SYRINGE IV (11:25)
== END 2024-08-16 12:30 | disposition home or self-care (01) ==
PROVIDERS: PCP Nurse Practitioner Family; Visit Provider Obstetrics & Gynecology
PROC: (CPT 840; principal; 2024-08-16 09:00)
PROC: (CPT 840; 2024-08-16 09:00)
DX: N92.0 Excessive and frequent menstruation with regular cycle (principal); Z30.2 Encounter for sterilization; R10.2 Pelvic and perineal pain; N93.9 Abnormal uterine and vaginal bleeding, unspecified
CPT/HCPCS: 58563; 58661; 36415; 80307; 84702; 85025; 88302; J1100; J1171; J1885; J2250; J2405; J2704; J3010

== ENCOUNTER 2025-01-08 14:54 | Outpatient (REF) | payer OTHER, SELFPAY | END 2025-01-08 14:55 | disposition home or self-care (01) | LOC: LAB 14:54 | PROVIDERS: PCP Nurse Practitioner Family; Visit Provider Obstetrics & Gynecology | DX: Z01.419 Encounter for gynecological examination (general) (routine) without abnormal findings (principal) | CPT/HCPCS: 88175 ==